=== PATIENT | male | born 1970 | race African-American/Black ===

== ENCOUNTER 2020-11-07 09:52 | Outpatient (CLI) | payer MEDICARE, SELFPAY ==
--- NOTE | ~2020-11-07 | XR_ITS ---
EXAMINATION: XR cervical spine 4-5V EXAM DATE: 11/07/2020 10:25 INDICATION: M54.2 - Cervicalgia, NKI . TECHNIQUE: Cervical spine frontal, lateral, lateral swimmers, and open-mouth odontoid projections. There is no prior study for comparison. FINDINGS: Mild loss of the C7-T1 disc height. The vertebral body and disc heights are otherwise well maintained. The vertebral bodies are aligned in the AP dimension. The odontoid process is intact. T he lateral masses of C1 line up with C2. Prevertebral soft tissue and pre-dens space are within marie l limits. Mild to moderate cervical arthropathy. Left subclavian/axillary stents. IMPRESSION: 1. Mild to moderate cervical arthropathy. Reviewed, dictated and finalized at location B.
--- NOTE | ~2020-11-07 | XR_ITS ---
XR chest 2V 11/07/2020 10:25 Indication: Chronic obstructive pulmonary disease. Procedure: PA and lateral views of the chest Comparison: No prior studies for comparison. Findings: Cardiomegaly. There is subtle right perihilar airspace disease. There are vascular stents i n the left subclavian and proximal humeral locations. No significant effusion. No pneumothorax. Impression: 1: Right perihilar airspace disease may represent asymmetric edema or pneumonia. 2: Cardiomegaly. Reviewed, dictated and finalized at location A. Impression: 1: Right perihilar airspace disease may represent asymmetric edema or pneumonia . 2: Cardiomegaly.
--- NOTE | ~2020-11-07 | XR_ITS ---
XR abdomen/kub 1V 11/07/2020 10:25 INDICATION: Hematuria TECHNIQUE: KUB COMPARISON: None FINDINGS: Bowel gas pattern is normal. Moderate colonic fecal loading. There is no evidence of free a ir, mass, organomegaly, ascites or obstruction. No abnormal calculi are seen. The bones appear inta ct. Moderate osteoarthritis of the hips. IMPRESSION: 1: No acute abdominal abnormality identified. Reviewed, dictated and finalized at location A.
== END 2020-11-07 09:53 | disposition home or self-care (01) ==
LOC: ANHIMG 10:04
PROVIDERS: PCP Internal Medicine; Visit Provider Internal Medicine
DX: R31.9 Hematuria, unspecified (principal); M54.2 Cervicalgia; J44.9 Chronic obstructive pulmonary disease, unspecified; I51.7 Cardiomegaly; R91.8 Other nonspecific abnormal finding of lung field
CPT/HCPCS: 71046; 72050; 74018

== ENCOUNTER 2020-11-23 07:58 | Outpatient (CLI) | payer MEDICARE, SELFPAY ==
--- NOTE | 2020-11-27 13:10 | P.PCNPFT_ITS ---
PFT Procedure Performed PFT Procedure Performed Spirometry with Pre/Post Bronchodilator Plethysmography (Lung Vol) Diffusing Cap (DLCO) Flow Vol Loop PFT Interpretation Lung volumes were measured with the body plethysmography method. The diminished across the board lung volumes are indicative of restrictive respiratory disease. Spirometry showed diminished expiratory flow rates and a diminished FEV1 to FVC ratio of 55%, indicative of obstructive airway disease. Following administration of a bronchodilator there was no significant increase in the expiratory flow rates. Lung diffusion capacity is severely reduced at 44% predicted. Impression: Combined restrictive respiratory and obstructive airway disease wit h no response to bronchodilators on this testing. Severely reduced lung diffusion capacity.
== END 2020-11-23 07:59 | disposition home or self-care (01) ==
PROVIDERS: PCP Internal Medicine; Visit Provider Internal Medicine
DX: J44.9 Chronic obstructive pulmonary disease, unspecified (principal); R94.2 Abnormal results of pulmonary function studies
CPT/HCPCS: 94060; 94726; 94729

== ENCOUNTER 2021-04-23 03:29 | Inpatient (IN) | payer MEDICARE, SELFPAY ==
[2021-04-23] VITALS (67 sets, daily range): BP systolic 111–229; BP diastolic 66–187; PULSE 87–165; RESP 13–45; TEMP 36.9–37.9; O2SAT 87–100; BMI 22.4
--- NOTE | 2021-04-23 | ECHO_ITS ---
Patient Info Name: Germán Mills Age: 50 years : 1970 Gender: Male Ht: 71 in Wt: 160 lbs BSA: 1.91 m2 HR: 138 bpm BP: 158 / 100 mmHg Heart Rhythm: Atrial Fibrillation Technical Quality: Fair Exam Date: 04/23/2021 4:43 PM Exam Location: [facility] Patient Status: Inpatient Admit Date: 04/23/2021 Staff Ordering Physician: Brea Bowden MD Job Developer: Hemalatha Winn RDCS Attending Provider: Michael Dailey MD Exam Type: CA echo doppler color flow Study Info Indications - cardiomegaly Complete two-dimensional, color flow and Doppler transthoracic echocardiogram is performed. Summary 1. Complete two-dimensional, color flow and Doppler transthoracic echocardiogram is performed. 2. Left ventricular chamber dimension is normal. 3. Left ventricular systolic function is normal, estimated at 65-70%. 4. There is severely increased left ventricular wall thickness. 5. There is no aortic valve stenosis. 6. There is trace mitral valve regurgitation. 7. There is mild tricuspid valve regurgitation. 8. Mild pulmonary hypertension, estimated pulmonary arterial systolic pressure is 40 mmHg. 9. There is large pericardial effusion without evidence of tamponade physiology. Left Ventricle Left ventricular chamber dimension is normal. Left ventricular systolic function is normal, estimated at 65-70%. There is severely increased left ventricular wall thickness. The left ventricular diastolic function is indeterminate. Right Ventricle Right ventricular chamber dimension is normal. Right ventricular systolic function is normal. Left Atria Left atrial chamber dimension is moderately enlarged. Right Atria Right atrial chamber dimension is moderately enlarged. Aortic Valve The aortic valve is probable trileaflet. There is mild aortic valve sclerosis. There is no aortic valve stenosis. There is trace aortic valve regurgitation. Pulmonic Valve The pulmonic valve is normal. There is mild pulmonic regurgitation. Mitral Valve The mitral valve has thickened leaflets. There is trace mitral valve regurgitation. There is moderate mitral valve calcification. The mitral valve annulus is mildly calcified. Tricuspid Valve The tricuspid valve leaflets are normal. There is mild tricuspid valve regurgitation. Mild pulmonary hypertension, estimated pulmonary arterial systolic pressure is 40 mmHg. Pericardium/Pleural The pericardium appears normal. There is large pericardial effusion without evidence of tamponade physiology. Inferior Vena Cava Dilated inferior vena cava with <50% collapse upon inspiration consistent with elevated right atrial pressure, 10 mmHg. Aorta The aortic root size at the sinus of Valsalva is normal. There is mild aortic atherosclerosis. Left Ventricular Outflow Tract Name Value Normal LVOT 2D LVOT Diameter 2.0 cm LVOT Doppler LVOT Peak Gradient 12 mmHg LVOT Mean Gradient 6 mmHg LVOT VTI 22 cm LVOT VTI/AV VTI Ratio 0.8
--- NOTE | ~2021-04-23 | NM_ITS ---
EXAMINATION: NM pulmonary perfusion DATE: 04/23/2021 07:58 INDICATION: Shortness of breath. TECHNIQUE: 5.5 mCi Tc-99m MAA was administered intravenously for perfusion images. Scintigraphic dionna ges of the chest were obtained. COMPARISON: Chest single view 04/23/2021 FINDINGS: Perfusion images show matched large defects at left lung base. There are matched small defects in rig ht lower lobe. IMPRESSION: 1. Nondiagnostic (intermediate probability for pulmonary embolism). Reviewed, dictated and finalized at location A. SM MOTOR SPECIALIST
--- NOTE | ~2021-04-23 | XR_ITS ---
EXAMINATION: XR chest 1V portable DATE: 04/29/2021 08:22 INDICATION: Coarse lung sounds. TECHNIQUE: A single frontal view of the chest was obtained. COMPARISON: Chest single view 04/23/2021 FINDINGS: There are small right and moderate-sized left pleural effusions. There are airspace opaciti es in the perihilar regions and at the lung bases. No pneumothorax. Cardiomegaly is noted. IMPRESSION: 1. Worsened small right and moderate-sized left pleural effusions. 2. Persistent airspace opacities in the perihilar regions and at the lung bases with worsening at the lung bases, consistent with atelectasis and pulmonary edema versus pneumonia. 3. Cardiomegaly. Reviewed, dictated and finalized at location A. IMPRESSION: 1. Worsened small right and moderate-sized left pleural effusions. 2. Persistent airspace opacities in the perihilar regions and at the lung bases with worsening at the lung bases, consistent with atelectasis and pulmonary ed mati versus pneumonia. 3. Cardiomegaly.
--- NOTE | ~2021-04-23 | XR_ITS ---
EXAMINATION: XR chest 1V portable DATE: 04/23/2021 23:31 INDICATION: Pain at site of thoracentesis. TECHNIQUE: frontal view of the chest was obtained. COMPARISON: Chest radiograph dated 05/03/2021 at 4:28 PM and 3:54 AM FINDINGS: Increasing opacity in the left mid to lower lung zone consistent with reaccumulation of a small left pleural effusion with associated left basilar atelectasis and/or pneumonia. Mild perihilar opacities at the right lung which could represent mild pulmonary edema. No pneumothorax or right-sided pleural effusion. Persistent prominent cardiomegaly. Vascular stents at the left axilla and proximal left upp er arm. IMPRESSION: 1. Increasing opacities in the left lower lung zone consistent with reaccumulation of a small left pl eural effusion and associated atelectasis and/or pneumonia. 2. Cardiomegaly with mild right perihilar opacities consistent with mild pulmonary edema. Reviewed, dictated and finalized at location A. ER MIXER IMPRESSION: 1. Increasing opacities in the left lower lung zone consistent with reaccumulat ion of a small left pleural effusion and associated atelectasis and/or pneumoni a. 2. Cardiomegaly with mild right perihilar opacities consistent with mild pulmon [place] edema.
--- NOTE | ~2021-04-23 | XR_ITS ---
EXAMINATION: XR chest 1V portable DATE: 04/23/2021 03:57 INDICATION: Chest pain. TECHNIQUE: A single frontal view of the chest was obtained. COMPARISON: Chest 2 views 11/07/2020 FINDINGS: There is a moderate-sized left pleural effusion. There are airspace opacities at left lung base. There are hazy airspace opacities in the rest of the lungs. No pneumothorax. There is severe en largement of the cardiac silhouette. A vascular stent overlies left shoulder. IMPRESSION: 1. Diffuse lung disease, consistent with pulmonary edema versus pneumonia. 2. Moderate-sized left pleural effusion. 3. Severe enlargement of the cardiac silhouette, which may be cardiomegaly and/or pericardial effusio n. Reviewed, dictated and finalized at location A. HUNTER IMPRESSION: 1. Diffuse lung disease, consistent with pulmonary edema versus pneumonia. 2. Moderate-sized left pleural effusion. 3. Severe enlargement of the cardiac silhouette, which may be cardiomegaly and/ or pericardial effusion.
--- NOTE | ~2021-04-23 | US_ITS ---
EXAMINATION: US thoracentesis DATE: 04/30/2021 14:35 INDICATION: Left pleural effusion TECHNIQUE: The procedure and its risks and benefits were discussed with the patient. Potential risks discussed included bleeding, infection, and pneumothorax. The patient understood the risks and agreed to proceed. The skin was prepped and draped in sterile fashion. 1% lidocaine was used for local anes thesia. Under ultrasound guidance, a 5 Fr catheter with trochar was advanced into the left pleural ef fusion. Fluid was aspirated. The catheter was removed, and a dressing was applied. There were no imme diate complications. FINDINGS: Ultrasound images demonstrate a small left pleural effusion and the catheter within the fluid. There is negligible residual left pleural effusion at the conclusion of the procedure. Incidentally noted i s a large complex pericardial effusion with low level internal echoes and irregular peripheral hypoec hoic material incomplete septations. The pericardial fluid collection measures up to 5 cm in thicknes s. This incidental finding was discussed with Dr. Mila Whyte at 2:45 PM. IMPRESSION: 1. Successful ultrasound-guided thoracentesis yielding 250 mL of clear yellowish fluid. 2. Large complex appearing pericardial effusion. Reviewed, dictated and finalized at location A. IMPRESSION: 1. Successful ultrasound-guided thoracentesis yielding 250 mL of clear yellowi sh fluid. 2. Large complex appearing pericardial effusion.
--- NOTE | ~2021-04-23 | US_ITS ---
EXAMINATION: US thoracentesis DATE: 04/23/2021 16:38 INDICATION: Left pleural effusion TECHNIQUE: The procedure and its risks and benefits were discussed with the patient. Potential risks discussed included bleeding, infection, and pneumothorax. The patient understood the risks and agreed to proceed. The skin was prepped and draped in sterile fashion. 1% lidocaine was used for local anes thesia. Under ultrasound guidance, a 5 Fr catheter with trochar was advanced into the small left pleu ral effusion. Fluid was aspirated. The catheter was removed, and a dressing was applied. There were n o immediate complications. FINDINGS: Ultrasound images demonstrate a small left pleural effusion and the catheter within the fluid. IMPRESSION: 1. Successful ultrasound-guided thoracentesis yielding 400 mL of clear yellow fluid. Reviewed, dictated and finalized at location A. E INSTALLER REPAIRER
--- NOTE | ~2021-04-23 | XR_ITS ---
EXAMINATION: XR_[id number]_CR DATE: 04/23/2021 16:33 INDICATION: Pleural effusion postthoracentesis TECHNIQUE: frontal view of the chest was obtained. COMPARISON: Chest radiograph dated 05/03/2021 at 3:54 AM FINDINGS: Near complete resolution of prior left pleural effusion. No pneumothorax or right-sided pleural effus ion. Bilateral mild perihilar opacities and additional opacities at the left lung base which could re present mild pulmonary edema, atelectasis or pneumonia. Cardiomegaly. Vascular stenting at the left a xilla and proximal left upper arm. IMPRESSION: 1. Near-complete resolution of a prior left pleural effusion postthoracentesis. 2. Opacities in the left lower lung zone and bilateral perihilar regions which could represent mild p ulmonary edema, pneumonia, atelectasis or some combination thereof. 3. Cardiomegaly. Reviewed, dictated and finalized at location A. RAM CLERK IMPRESSION: 1. Near-complete resolution of a prior left pleural effusion postthoracentesis. 2. Opacities in the left lower lung zone and bilateral perihilar regions which could represent mild pulmonary edema, pneumonia, atelectasis or some combinatio n thereof. 3. Cardiomegaly.
--- NOTE | ~2021-04-23 | XR_ITS ---
EXAMINATION: XR_CXR1VTHORA_CR DATE: 04/30/2021 14:31 INDICATION: Left pleural effusion status post thoracentesis. TECHNIQUE: A single frontal view of the chest was obtained. COMPARISON: Chest single view 04/29/2021, 11/07/2020 FINDINGS: There is a moderate-sized loculated left pleural effusion. There are airspace opacities in the mid and lower lung zones. No pneumothorax. Cardiomegaly is noted. There are vascular stents in le ft axilla and overlying left shoulder. IMPRESSION: 1. Moderate-sized loculated left pleural effusion. 2. Stable airspace opacities in the mid and lower lung zones, consistent with atelectasis versus pneu monia. 3. Cardiomegaly. Reviewed, dictated and finalized at location A. IMPRESSION: 1. Moderate-sized loculated left pleural effusion. 2. Stable airspace opacities in the mid and lower lung zones, consistent with a telectasis versus pneumonia. 3. Cardiomegaly.
--- NOTE | 2021-04-23 03:30 | ECG_ITS ---
Measurements Intervals [place] Rate: 155 P: [place]: 0 QRS: 26 QRSD: 89 T: 128 QT: 262 QTc: 421 Interpretive Statements ATRIAL FIBRILLATION WITH RAPID VENTRICULAR RESPONSE ST ELEVATION, PROBABLY EARLY REPOLARIZATION [ST ELEVATION WITH NORMALLY INFLECTED T WAVE] NONSPECIFIC ST & T-WAVE ABNORMALITY ABNORMAL ECG NO PREVIOUS ECG AVAILABLE FOR COMPARISON Electronically Signed On 04-23-2021 14:05:50 POTATO CHIP MAKER by Ulisses Allen M.D.
--- NOTE | 2021-04-23 03:39 | PC.NURSE ---
Patient states his dialysis is MWF and he has been going.
[2021-04-23 03:45] LABS: Basophils Percent Auto 0.2 % (0.2-1.2); Eosinophils Absolute Auto 0.2 K/mm3 (0-0.3); Eosinophils Percent Auto 1.7 % (0-4.4); Hematocrit 32.6 % (42.0-52.0); Hemoglobin 10.3 g/dL (14.0-18.0); Immature Granulocyte Absolute 0.09 K/mm3 (0.00-0.031); Immature Granulocyte Percent A 0.7 % (0-0.5); Lymphocytes Absolute Auto 0.66 K/mm3 (0.9-3.2); Mean Corpuscular HGB Conc 31.6 g/dl (32-36); Mean Corpuscular Hemoglobin 29.3 pg (26-34); Mean Corpuscular Volume 92.9 fl (80-100); Monocytes Absolute Auto 1.4 K/mm3 (0.1-0.6); Monocytes Percent Auto 10.3 % (2.6-8.5); Neutrophils Absolute Auto 10.9 K/mm3 (1.3-6.7); Neutrophils Percent Auto 82.1 % (45.5-73.1); Platelet Count Result 398 k/mm3 (150-375); Red Blood Count 3.51 M/mm3 (4.6-6.20); Red Cell Distribution Width 18.1 % (11.5-14.5); White Blood Count 13.2 K/mm3 (4.5-10.0)
[2021-04-23] MEDS: METOPROLOL TARTRATE INJ 5 MG/5 ML VIAL IV PUSH (03:45)
--- NOTE | 2021-04-23 03:47 | ED.CHESTPAIN ---
HPI - Chest Pain General Chief Complaint: Chest Pain Stated Complaint: Chest pain Time Seen by Provider: 04/23/21 03:35 Source: patient Mode of arrival: EMS Limitations: no limitations History of Present Illness HPI narrative: Patient is a 50-year-old male complaining of chest pain, midsternal, pressure, 8 out of 10, nonradiating accompanied by palpitations and shortness of breath started 3 days ago. Patient states that he has a history of end-stage renal disease on dialysis Wednesdays and Fridays and COPD. Patient denies any abdominal pain, nausea, vomiting, diaphoresis, fever or chills. Related Data Home Medications Medication Instructions Recorded Confirmed clonidine HCl 0.3 mg tablet 0.3 mg PO BID tablet 09/21/20 12/28/20 hydralazine 100 mg tablet 100 mg PO TID tablet 09/21/20 12/28/20 lisinopril 40 mg tablet 40 mg PO DAILY 09/21/20 12/28/20 minoxidil 2.5 mg tablet 2.5 mg PO TID tablet 09/21/20 12/28/20 Allergies Allergy/AdvReac Type Severity Reaction Status Date / Time Iodinated Contrast Media Allergy Unknown Verified 04/23/21 03:39 Review of Systems Review of Systems: All systems reviewed & are unremarkable except as noted in HPI and below Constitutional: Constitutional: Denies body ache(s), Denies chills, Denies excessive sweating, Denies fatigue, Denies fever(s), Denies headache(s), Denies lethargy, Denies malaise, Denies weakness and Denies weight loss Eyes: Eyes: Denies blurry vision, Denies change in vision and Denies loss of vision ENT: Denies dizziness, Denies ear discharge, Denies headache(s), Denies lip swelling, Denies epistaxis, Denies nasal congestion, Denies neck pain, Denies throat swelling and Denies tongue swelling Cardiovascular: Cardiovascular: Denies diaphoresis, Denies edema, Denies irregular heart rhythm and Denies lightheadedness Respiratory: Respiratory: Denies chest congestion, Denies cough and Denies hemoptysis Gastrointestinal: Gastrointestinal: Denies abdominal pain, Denies melena, Denies hematochezia, Denies diarrhea, Denies nausea, Denies vomiting and Denies hematemesis Musculoskeletal: Musculoskeletal: Denies abnormal gait, Denies deformity, Denies joint swelling, Denies limited range of motion, Denies neck pain and Denies numbness Neurologic: Denies Abnormal speech present, Denies abnormal gait, Denies confusion, Denies dizziness, Denies headache(s), Denies focal weakness, Denies loss of vision, Denies numbness, Denies Other visual disturbances, Denies Sensory deficit (Neuro) and Denies weakness Psychiatric: Psychiatric: Denies confusion, Denies depression, Denies auditory hallucinations, Denies homicidal ideation and Denies suicidal ideation Endocrine: Endocrine: Denies cold intolerance, Denies excessive sweating, Denies fatigue, Denies heat intolerance and Denies palpitations Hematologic/Lymphatic: Hematologic/Lymphatic: Denies easy bleeding and Denies easy bruising Allergic/Immunologic: Allergic/Immunologic: Denies lip swelling, Denies throat swelling and Denies tongue swelling PMFSH Past Medical History Medical History Chronic cough Difficulty sleeping High blood pressure Kidney disease Seizure Swollen feet Family History Family History Mother Hypertension Social History Social History Smoking packs per day: 0.5 Smoking cigarettes per day: 10.0 Years smoked: 30 Smoking pack-years: 15.00 Second hand tobacco smoke exposure: No Alcohol intake: never Substance use: never Substance use type: does not use Exam Const: General: cooperative, comfortable, well developed, alert and awake; No confusion Orientation/consciousness: oriented to person, oriented to place, oriented to time, patient oriented x3 and No confusion Limitations: no limitations Other: Moderate distre
[2021-04-23 03:54] LABS: Anisocytosis 1+ (NORMAL); Hypochromasia 1+ (NORMAL); Large Platelets Present; Stomatocytes 1+ (NORMAL); Target Cells 1+ (NORMAL)
[2021-04-23 03:56] LABS: INR 1.4; Prothrombin Time 16.5 Seconds (11.1-14.7)
--- NOTE | 2021-04-23 03:58 | PC.NURSE ---
WILBER per hold metoprolol at this time, but give po med.
[2021-04-23] MEDS: ACETAMINOPHEN 325 MG TABLET 650 MG PO (03:59)
--- NOTE | 2021-04-23 03:59 | ECG_ITS ---
Measurements Intervals [place] Rate: 106 P: 58 [place]: 152 QRS: 19 QRSD: 86 T: 107 QT: 329 QTc: 438 Interpretive Statements SINUS TACHYCARDIA LEFT ATRIAL ENLARGEMENT [-0.15mV P WAVE IN V1/V2] ST ELEVATION, PROBABLY EARLY REPOLARIZATION [ST ELEVATION WITH NORMALLY INFLECTED T WAVE] MODERATE T-WAVE ABNORMALITY, CONSIDER LATERAL ISCHEMIA [-0.1+ mV T WAVE IN I/aVL/V5/V6] ABNORMAL ECG COMPARED TO ECG 04/23/2021 03:32:20 SINUS TACHYCARDIA NOW PRESENT Electronically Signed On 04-23-2021 14:06:47 DRESS SHOE INSPECTOR by Ulisses Allen M.D.
[2021-04-23 04:02] LABS: Alanine Aminotransferase 13 U/L (4-50); Albumin Level 4.8 g/dL (3.5-5.1); Alkaline Phosphatase 239 U/L (38-126); Anion Gap 17 mmol/L (8-16); Aspartate Amino Transferase 49 U/L (17-59); Blood Urea Nitrogen 66 mg/dL (9-20); Calcium 8.6 mg/dL (8.4-10.2); Carbon Dioxide 28 mmol/L (22-30); Chloride 97 mmol/L (98-107); Estimated CRCL calculation 6 ml/min; Estimated Glomerular Filt Rate 5; Glucose 100 mg/dL (65-110); Partial Thromboplastin Time 28.1 SECONDS (22.3-36.8); Potassium 5.1 mmol/L (3.4-5.0); Sodium 142 mmol/L (137-145)
[2021-04-23 04:17] LABS: NT Pro B Type Natriuretic Pept > 35000 pg/mL (5-100); Troponin I 0.382 ng/mL (0.000-0.034)
[2021-04-23 04:29] LABS: Lactic Acid Reflex 1.3 mmol/L (0.7-2.1)
[2021-04-23] MEDS: MORPHINE SULFATE (*CRX) 2 MG/ML INJ IV PUSH ×3 (04:35→08:46)
[2021-04-23] MEDS: DEXAMETHASONE SOD PHOS INJ 4 MG/ML VIAL 10 MG IV PUSH (04:59)
[2021-04-23] MEDS: ALBUTEROL SULFATE NEB 2.5 MG/0.5 ML INH 5 MG INHALATION (05:04)
[2021-04-23] MEDS: IPRATROPIUM BR 0.02% INH SOLN 0.5 MG/2.5 ML VIAL INHALATION (05:04)
[2021-04-23] MEDS: HEPARIN SOD/D5W 100 UNITS/ML 25,000 UNITS/250 ML BAG 8 UNITS IV CONT (05:07)
--- NOTE | 2021-04-23 05:35 | PC.NURSE ---
Patients states his PCP is and his calender wind up helper is Dr. Hughes.
--- NOTE | 2021-04-23 05:52 | PC.NURSE ---
[facility] called to inform that they do not have the medication for the scan, but as soon as they do they will come get the patient to perform the scan.
[2021-04-23 06:02] LABS: SARS-CoV-2 RNA PCR Negative
--- NOTE | 2021-04-23 06:25 | PC.NURSE ---
Informed patient and family on patients room number. Patient still c/o pain, ERP notified.
[2021-04-23 08:00] LABS: Troponin I 0.403 ng/mL (0.000-0.034)
--- NOTE | 2021-04-23 08:20 | ADMGEN ---
This patient, Germán Mills, was admitted to Intensive Care Unit-6. Patient/family oriented to hospital policies and general routines including ID bracelet, bed and alarms, visiting hours, pain management, procedures, bathroom and other care routines, personal items, smoking policy, room service/diet, and visiting hours. Information on how to activate the Rapid Response Team has been discussed. Patient/Family are encouraged to report perceived risks to care and to ask questions if they do not understand what they are told or what they should do.
--- NOTE | 2021-04-23 08:24 | ECG_ITS ---
Measurements Intervals [place] Rate: 105 P: 35 ID: 143 QRS: 3 QRSD: 89 T: 122 QT: 330 QTc: 437 Interpretive Statements SINUS TACHYCARDIA WITH FREQUENT SUPRAVENTRICULAR PREMATURE COMPLEXES POSSIBLE LEFT ATRIAL ENLARGEMENT [-0.1mV P WAVE IN V1/V2] ST ELEVATION, PROBABLY EARLY REPOLARIZATION [ST ELEVATION WITH NORMALLY INFLECTED T WAVE] Nonspecific T-wave abnormality COMPARED TO ECG 04/23/2021 04:00:56 NO SIGNIFICANT CHANGES Electronically Signed On 04-23-2021 15:39:12 ESTIMATOR AND DRAFTER SUPERVISOR by Neil Koo M.D.
[2021-04-23] MEDS: hydrALAZINE HCL 50 MG TABLET 100 MG PO ×3 (09:27→21:14)
[2021-04-23] MEDS: cloNIDine HCL 0.1 MG TABLET 0.3 MG PO ×2 (09:27→17:26)
[2021-04-23] MEDS: minoxidiL 2.5 MG TABLET PO ×3 (09:28→17:26)
[2021-04-23 10:20] LABS: INR 1.4; Prothrombin Time 16.7 Seconds (11.1-14.7)
[2021-04-23 10:21] LABS: Partial Thromboplastin Time 43.1 SECONDS (22.3-36.8)
[2021-04-23] MEDS: HEPARIN SODIUM 5,000 UNITS/ML VIAL 4000 UNITS IV PUSH (10:25)
[2021-04-23 10:32] LABS: Hepatitis B Surface Antigen Negative (Negative)
[2021-04-23 10:34] LABS: Troponin I 0.359 ng/mL (0.000-0.034)
[2021-04-23 10:43] LABS: Magnesium 2.2 mg/dL (1.6-2.3)
[2021-04-23] MEDS: CYCLOBENZAPRINE HCL 10 MG TABLET PO ×2 (10:52→22:24)
[2021-04-23 10:58] LABS: Hepatitis B Surface Anti Res Positive
--- NOTE | 2021-04-23 11:13 | PM.IMHP ---
H&P: HPI History of Present Illness Date/Time: 04/23/21 11:13 ED-HPI narrative: Patient is a 50-year-old male complaining of chest pain, midsternal, pressure, 8 out of 10, nonradiating accompanied by palpitations and shortness of breath started 3 days ago. Patient states that he has a history of end-stage renal disease on dialysis Wednesdays and Fridays and COPD. Patient denies any abdominal pain, nausea, vomiting, diaphoresis, fever or chills. Patient is a 50-year-old male with history of end-stage renal disease on hemodialysis presented with complaint of chest pain across his chest last 2 3 days patient denies any injury to chest, the pain is reproducible upon by pressing on the chest, patient tropes are elevated most likely secondary to end-stage renal disease and demand ischemia due to pain unlikely ruptured plaque. there are no acute changes on EKG, patient was started on heparin, also upon arrival patient was in atrial fibrillation with RVR most likely new onset is patient does not have any rate limiting medication, patient was given metoprolol IV 5 mg that converted patient to sinus rhythm, chest x-ray showed cardiomegaly, patient stats he had cardiac ECHO 3 yrs ago at [facility], will do cardiac echo to recheck, he has had thoracentesis in the past, will order thoracentesis therapeutic, patient will be seen by pediatric medical assistant and further recommendation to follow, patient will have dialysis today, will continue to monitor. upon arrival patient had fever and elevated white count concerning for pneumonia started the patient on azithromycin and Rocephin, patient D-dimer is elevated V/Q scan intermediate probability for PE currently patient is on heparin, will do the lower extremity Doppler and further recommendation to follow. patient admitted as inpatient patient will send hospital for 2 midnights Chief Complaint: chest pain Review of Systems Review of Systems: All systems reviewed & are unremarkable except as noted in HPI and below PMFSH Past Medical History Medical History Chronic cough Difficulty sleeping High blood pressure Kidney disease Seizure Swollen feet Family History Family History Mother Hypertension Social History Social History Smoking packs per day: 1 Smoking cigarettes per day: 20.0 Years smoked: 20 Smoking pack-years: 20.00 Smoking status: Former smoker Second hand tobacco smoke exposure: No Alcohol intake: never Substance use: never Substance use type: does not use Spiritual care concerns: No Meds Home Medications and Allergies Home Medications Medication Instructions Recorded Confirmed Type clonidine HCl 0.3 mg tablet 0.3 mg PO BID tablet 09/21/20 04/23/21 History hydralazine 100 mg tablet 100 mg PO TID tablet 09/21/20 04/23/21 History minoxidil 2.5 mg tablet 2.5 mg PO TID tablet 09/21/20 04/23/21 History budesonide-formoterol HFA 160 2 puff INHALATION Q12H #10.2 g 03/26/21 04/23/21 Rx mcg-4.5 mcg/actuation aerosol inhaler Allergies Allergy/AdvReac Type Severity Reaction Status Date / Time Iodinated Contrast Media Allergy Unknown Verified 04/23/21 08:15 Vital Signs Vital Signs - 24 hr 04/23/21 03:30 04/23/21 03:39 04/23/21 03:41 Temperature 100.2 F H Pulse Rate 149 H 148 H Respiratory Rate 30 H 28 H Blood Pressure 164/66 H Pulse Oximetry 93 87 L 98 04/23/21 03:42 04/23/21 03:45 04/23/21 03:46 Temperature Pulse Rate 140 H 164 H 148 H Respiratory Rate 29 H 35 H 20 Blood Pressure 164/66 H Pulse Oximetry 94 95 96 04/23/21 03:49 04/23/21 03:50 04/23/21 04:01 Temperature Pulse Rate 134 H 137 H 109 H Respiratory Rate 32 H 32 H 29 H Blood Pressure 150/74 H Pulse Oximetry 94 93 93 04/23/21 04:02 04/23/21 0
--- NOTE | 2021-04-23 12:20 | ECG_ITS ---
Measurements Intervals [place] Rate: 141 P: [place]: 0 QRS: 21 QRSD: 94 T: 143 QT: 281 QTc: 432 Interpretive Statements ATRIAL FIBRILLATION WITH RAPID VENTRICULAR RESPONSE MODERATE T-WAVE ABNORMALITY, CONSIDER LATERAL ISCHEMIA [-0.1+ mV T WAVE IN I/aVL/V5/V6] COMPARED TO ECG 04/23/2021 08:39:11 AFIB REPLACES SINUS RHYTHM LATERAL PRECORDIAL T-WAVE ABNORMALITY IS EVIDENT Electronically Signed On 04-23-2021 15:48:47 SIXTH GRADE TEACHER by Neil Koo M.D.
--- NOTE | 2021-04-23 12:25 | PM.CNNEP ---
Assessment and Plan Assessment and plan (1) End stage renal disease: Code(s): N18.6 - End stage renal disease Status: Chronic Assessment and Plan: HD today and continue M/W/F dialysis schedule follow electrolytes, volume status, and clearance (2) Atrial fibrillation with RVR: Code(s): I48.91 - Unspecified atrial fibrillation Status: Acute Assessment and Plan: presumably a new finding continue rate control strategy as tolerated continue anticoagulation Cardiology following (3) Pleural effusion: Code(s): J90 - Pleural effusion, not elsewhere classified Status: Acute Assessment and Plan: as noted by CXR plan for left thoracentesis (4) CAP (community acquired pneumonia): Code(s): J18.9 - Pneumonia, unspecified organism Status: Acute Assessment and Plan: suspicion noted from admission imaging follow culture data on antibiotics (5) Hypertension: Qualifiers: Hypertension type: renovascular hypertension Qualified Code(s): I15.0 - Renovascular hypertension Code(s): I10 - Essential (primary) hypertension Status: Acute Assessment and Plan: suspect poorly controlled at baseline given that he is on multiple agents (clonidine, minoxidil, hydralazine...etc) follow trend of hemodynamics with home medications (6) Anemia: Code(s): D64.9 - Anemia, unspecified Status: Acute Assessment and Plan: due to ESRD follow trend of H/H Epogen with dialysis Will continue to follow. History of Present Illness Reason for Consult Consult date: 04/23/21 Reason for consult: end stage renal disease Chief Complaint Chief complaint: Atrial FIB with RVR/NSTEMI/ESRD on dialysis History of Present Illness Narrative: The patient is a 50-year-old male with a past medical history as outlined below who presented to [facility] Emergency room with complaints of chest pain. The patient states that his chest pain started approximately 3-4 days ago which apparently waxed and waned. The chest pain was localized to his missed midsternal area and described as a pressure sensation rated 8/10 at its worst. It was nonradiating but was accompanied by palpitations as well as shortness of breath. Given these constellation of symptoms, he presented to the ER for further evaluation Workup and evaluation emergency room demonstrated the patient to be hemodynamically stable and in no acute distress. His chest pain was actually reproducible upon palpation of his chest but further testing including EKG demonstrated no ischemic changes but did note atrial fibrillation with RVR which apparently is a new finding. His troponins were mildly elevated and his BNP was greater than 35,000 although both of these findings were thought to be more secondary to his known history of end-stage renal disease. He reports that his chest pain is worse with deep breathing, movement as well as coughing. Further testing also included chest x-ray that demonstrated a significant left pleural effusion. He was given IV metoprolol in the emergency room which converted his AFib to normal sinus rhythm and routine blood test demonstrated labs consistent with his known history of end-stage renal disease with a mildly elevated potassium. Given is new finding of AFib with RVR, he was started on systemic heparin and subsequent admitted to the hospital for further evaluation and therapy Since his admission, he was monitored overnight and is currently undergoing hemodialysis at the time of my visit (he was seen on hemodialysis at 12:15 p.m). He appears to be tolerating dialysis but he is having significant fluctuations in his blood pressure and appears that he has reverted back to atrial fibrillation with his heart rate running down the 130s to 150s. He has since been started on a diltiazem infusion for better rate control. Renal consultation was
[2021-04-23] MEDS: dilTIAZem HCl INJ 25 MG/5 ML VIAL 10 MG IV PUSH (12:35)
[2021-04-23] MEDS: dilTIAZem 100 MG/100 ML 100 MG/100 ML BAG IV CONT (12:36)
--- NOTE | 2021-04-23 14:15 | PM.CNCAR ---
Assessment and Plan Assessment and plan (1) Atrial fibrillation with RVR: Code(s): I48.91 - Unspecified atrial fibrillation Status: Acute Assessment and Plan: New diagnosis paroxysmal atrial fibrillation with rapid ventricular response. As BP permits uptitration of diltiazem infusion, additional IV metoprolol for heart rate control. Continue heparin infusion for anticoagulation. Amiodarone if hypotensive and AFib with RVR although would try to avoid as duration remains unknown and intracardiac thrombus status unclear. Will review 2D echocardiogram to assess LV function, valve pathology pulmonary pressures, chamber size with heart rate better controlled. Recommendation to follow. (2) Elevated troponin level not due myocardial infarction: Code(s): R77.8 - Other specified abnormalities of plasma proteins Status: Acute Assessment and Plan: Flat curve not secondary to acute coronary syndrome and/or plaque rupture. Secondary to atrial fibrillation with RVR, end-stage renal disease on hemodialysis and uncontrolled hypertension. (3) Atypical chest pain: Code(s): R07.89 - Other chest pain Status: Acute Assessment and Plan: As above. Atypical reproducible musculoskeletal chest pain worse with deep breathing, coughing and or movement. This may be exacerbated by pleural effusion. Agree with thoracentesis as tolerated. (4) Uncontrolled hypertension: Code(s): I10 - Essential (primary) hypertension Status: Acute Assessment and Plan: Continue antihypertensives. Monitor BP closely in addition to AV bridger blocking agents. (5) ESRD needing dialysis: Code(s): N18.6 - End stage renal disease; Z99.2 - Dependence on renal dialysis Status: Acute Assessment and Plan: Per nephrology. Undergoing hemodialysis currently. Volume management with hemodialysis. (6) Pleural effusion: Code(s): J90 - Pleural effusion, not elsewhere classified Status: Acute Assessment and Plan: Stay plan thoracentesis. Recommendation to follow. Per primary service. (7) COPD (chronic obstructive pulmonary disease): Qualifiers: COPD type: unspecified COPD Qualified Code(s): J44.9 - Chronic obstructive pulmonary disease, unspecified Code(s): J44.9 - Chronic obstructive pulmonary disease, unspecified Status: Acute Assessment and Plan: Per primary service. History of Present Illness History of Present Illness Consult date/time: DATE OF SERVICE: 04/23/21 14:15 Cardiology consultation at the request of Dr. Bowden for our opinion regarding atrial fibrillation with rapid ventricular response and chest pain. Requesting physician: Brea Bowden MD Consult reason: atrial fibrillation Reason For Visit: Atrial FIB with RVR/NSTEMI/ESRD on dialysis Narrative: Patient is a 50-year-old male with past medical history significant for end-stage renal disease on hemodialysis who presented to the emergency department with complaints of chest pain nonradiating as well as palpitations his shortness of breath which began several days prior to admission. Patient has a history of COPD, hypertension. Troponins are mildly elevated with a flat curve 0.382, 0.403, 0.359. BNP was greater than 35,000. Creatinine was 13 at presentation. Chest pain is sharp worse with pressing on the chest worse with deep breathing, movement and coughing. Patient was started on heparin drip as he was found to be in atrial fibrillation with rapid ventricular response with no prior known history. Patient was given IV metoprolol 5 mg which he converted to sinus rhythm shortly after admission. Patient was also noted to have significant pleural effusion. He is undergoing hemodialysis at this time and reverted back to atrial fibrillation with RVR with heart rate in the 130s to 150 beats per minute. He was started on diltiazem infusion. He is scheduled for thoracentesis of
[2021-04-23 16:30] LABS: pH Pleural Fluid 7.461 (7.210-7.500)
[2021-04-23 17:45] LABS: Albumin Level 4.5 g/dL (3.5-5.1); Amylase 66 U/L (30-110); Cholesterol 168 mg/dL (0-200); Glucose 114 mg/dL (65-110); INR 1.5; Lactate Dehydrogenase 648 U/L (313-618); Prothrombin Time 17.5 Seconds (11.1-14.7); Triglycerides 76 mg/dL (<150)
[2021-04-23 17:47] LABS: Partial Thromboplastin Time 47.8 SECONDS (22.3-36.8)
[2021-04-23 18:25] LABS: Appearance Pleural Fluid Cloudy (Clear); Color Pleural Fluid Yellow (Colorless); Pleural fluid source Pleural fluid
[2021-04-23 18:27] LABS: Lymphocytes Pleural Fluid 14 %; Macrophages Pleural Fluid 4 %; Mesothelial Cells Pleural Flui 3 %; Neutrophils Pleural Fluid 79 % (0-25)
[2021-04-23 18:35] LABS: Influenza Control Positive
[2021-04-23] MEDS: dilTIAZem 100 MG/100 ML 100 MG/100 ML BAG 15 MG IV CONT (19:30)
[2021-04-23 22:16] LABS: Partial Thromboplastin Time 57.3 SECONDS (22.3-36.8)
[2021-04-23] MEDS: HEPARIN SODIUM 5,000 UNITS/ML VIAL 2500 UNITS IV PUSH (22:20)
[2021-04-23] MEDS: HYDROmorphone HCL INJ (*CRX) 1 MG/ML SYR IV PUSH (23:43)
--- NOTE | 2021-04-23 23:45 | ECG_ITS ---
Measurements Intervals [place] Rate: 90 P: 26 AK: 148 QRS: 14 QRSD: 90 T: 85 QT: 348 QTc: 428 Interpretive Statements SINUS RHYTHM DIFFUSE ST ELEVATION CONSISTENT WITH INJURY, PERICARDITIS, OR EARLY REPOLARIZATION [ST ELEVATION W/O NORMALLY INFLECTED T WAVE] ABNORMAL ECG COMPARED TO ECG 04/23/2021 12:29:56 SINUS RHYTHM NOW PRESENT DIFFUSE ST ELEVATIONS MORE APPARENT Electronically Signed On 04-24-2021 14:53:59 INSTRUCTIONAL SUPPORT TECHNICIAN by Ulisses Allen M.D.
[2021-04-24] VITALS (20 sets, daily range): BP systolic 134–150; BP diastolic 72–89; PULSE 90–102; RESP 14–28; TEMP 37–37.6; O2SAT 92–98
[2021-04-24] MEDS: FLUTICASONE/SALMETEROL 115-21 MCG INHALER 1 PUFF 2 PUFF INHALATION ×3 (00:24→20:06)
[2021-04-24 05:16] LABS: Basophils Absolute Auto 0.1 K/mm3 (0.0-0.1); Basophils Percent Auto 0.2 % (0.2-1.2); Hematocrit 28.8 % (42.0-52.0); Hemoglobin 9.4 g/dL (14.0-18.0); Immature Granulocyte Absolute 0.23 K/mm3 (0.00-0.031); Immature Granulocyte Percent A 1.1 % (0-0.5); Lymphocytes Percent Auto 2.4 % (18.3-44.2); Mean Corpuscular HGB Conc 32.6 g/dl (32-36); Mean Corpuscular Hemoglobin 29.2 pg (26-34); Mean Corpuscular Volume 89.4 fl (80-100); Mean Platelet Volume 10.3 fl (7.4-10.4); Monocytes Percent Auto 9.6 % (2.6-8.5); Neutrophils Absolute Auto 18.1 K/mm3 (1.3-6.7); Neutrophils Percent Auto 86.7 % (45.5-73.1); Platelet Count Result 403 k/mm3 (150-375); Red Blood Count 3.22 M/mm3 (4.6-6.20); Red Cell Distribution Width 18.1 % (11.5-14.5); White Blood Count 20.9 K/mm3 (4.5-10.0)
[2021-04-24 05:25] LABS: Partial Thromboplastin Time 61.5 SECONDS (22.3-36.8)
[2021-04-24 05:31] LABS: Albumin Level 4.3 g/dL (3.5-5.1); Anion Gap 12 mmol/L (8-16); Blood Urea Nitrogen 42 mg/dL (9-20); Calcium 8.9 mg/dL (8.4-10.2); Carbon Dioxide 28 mmol/L (22-30); Chloride 99 mmol/L (98-107); Estimated CRCL calculation 9 ml/min; Estimated Glomerular Filt Rate 8; Glucose 124 mg/dL (65-110); Magnesium 2.1 mg/dL (1.6-2.3); Phosphorus 6.9 mg/dL (2.5-4.5); Potassium 5.8 mmol/L (3.4-5.0); Sodium 139 mmol/L (137-145)
[2021-04-24] MEDS: dilTIAZem 100 MG/100 ML 100 MG/100 ML BAG IV CONT (05:35)
[2021-04-24] MEDS: HEPARIN SOD/D5W 100 UNITS/ML 25,000 UNITS/250 ML BAG 12 UNITS IV CONT (05:36)
[2021-04-24] MEDS: HEPARIN SODIUM 5,000 UNITS/ML VIAL 2500 UNITS IV PUSH ×2 (05:44→20:25)
[2021-04-24 05:45] LABS: Anisocytosis 1+ (NORMAL); Hypochromasia 1+ (NORMAL); Ovalocytes 1+ (NORMAL)
[2021-04-24] MEDS: hydrALAZINE HCL 50 MG TABLET 100 MG PO ×3 (05:59→21:13)
[2021-04-24] MEDS: minoxidiL 2.5 MG TABLET PO ×3 (09:13→17:15)
[2021-04-24] MEDS: cloNIDine HCL 0.1 MG TABLET 0.3 MG PO ×2 (09:13→17:15)
--- NOTE | 2021-04-24 09:38 | P.PNNP_ITS ---
Progress Note: A&P Assessment and Plan (1) End stage renal disease: Code(s): N18.6 - End stage renal disease Status: Chronic Assessment and Plan: * HD tomorrow and continue M/W/ dialysis schedule * follow electrolytes, volume status, and clearance * unclear why K+ elevated since had HD yesterday - dose with lokelma x 1 today * push fluid removal given CXR findings as well as large pericardial effusion * if this is indeed uremic pericarditis, will need to consider daily dialysis (2) Atrial fibrillation with RVR: Code(s): I48.91 - Unspecified atrial fibrillation Status: Acute Assessment and Plan: * presumably a new finding * continue rate control strategy as tolerated * continue anticoagulation * Echo results noted * large pericardial effusion -- due to minoxidil use versus poor dialysis (uremic pericarditis)?? * Cardiology following (3) Pleural effusion: Code(s): J90 - Pleural effusion, not elsewhere classified Status: Acute Assessment and Plan: * as noted by CXR * s/p left thoracentesis (on 04/23/21) * follow-up on pleural fluid studies/cultures (4) Hypertension: Qualifiers: Hypertension type: renovascular hypertension Qualified Code(s): I15.0 - Renovascular hypertension Code(s): I10 - Essential (primary) hypertension Status: Acute Assessment and Plan: * suspect poorly controlled at baseline given that he is on multiple agents (cl onidine, minoxidil, hydralazine...etc) * follow trend of hemodynamics with home medications * rate control medications for Afib may help this issue as well (5) Anemia: Code(s): D64.9 - Anemia, unspecified Status: Acute Assessment and Plan: * due to ESRD * follow trend of H/H * Epogen with dialysis Will continue to follow. Subjective Date/time seen: 04/24/21 09:38 Tolerated dialysis yesterday although reverted back to Afib with RVR during treatment requiring initiation of diltiazem gtt; s/p ultrasound guided thoracentesis yesterday as well;overall, states he is feeling better today; no apparent distress voiced; no issues/events overnight or earlier this AM. Exam Narrative: General: WD/WN AA male in NAD Heart: normal S1 and S2; no rub Lungs: decreased breath sound bilaterally Abdomen: soft, nontender, nondistended, positive bowel sounds Extremities: no cyanosis or clubbing; no edema Skin: warm and dry Objective Data Vital Signs Vital Signs: Vital Signs Temp Pulse Resp BP Pulse Ox 04/24/21 09:15 98 20 144/83 H 94 04/24/21 08:42 95 25 H 04/24/21 08:41 96 25 H 04/24/21 08:00 94 98 04/24/21 06:00 90 04/24/21 05:35 92 142/76 H 04/24/21 04:00 37.0 C 92 14 147/85 H 97 04/24/21 02:00 92 04/24/21 00:24 93 134/72 04/24/21 00:00 37.3 C 93 18 134/72 96 04/23/21 22:21 87 137/83 04/23/21 22:00 92 04/23/21 20:02 98 16 95 04/23/21 20:00 37.2 C 105 H 26 H 140/76 96 04/23/21 19:30 105 H 124/78 04/23/21 18:00 120 H 04/23/21 17:20 121 H 23 H 151/80 H 95 04/23/21 16:37 133 H 25 H 172/107 H 94 04/23/21 16:36 139 H 28 H 229/187 H 92 04/23/21 16:00 142 H 30 H 146/86 H 92 04/23/21 15:53 164/89 H
--- NOTE | 2021-04-24 09:38 | PM.PNNEP ---
Progress Note: A&P Assessment and Plan (1) End stage renal disease: Code(s): N18.6 - End stage renal disease Status: Chronic Assessment and Plan: HD tomorrow and continue M/W/ dialysis schedule follow electrolytes, volume status, and clearance unclear why K+ elevated since had HD yesterday - dose with lokelma x 1 today push fluid removal given CXR findings as well as large pericardial effusion if this is indeed uremic pericarditis, will need to consider daily dialysis (2) Atrial fibrillation with RVR: Code(s): I48.91 - Unspecified atrial fibrillation Status: Acute Assessment and Plan: presumably a new finding continue rate control strategy as tolerated continue anticoagulation Echo results noted large pericardial effusion -- due to minoxidil use versus poor dialysis (uremic pericarditis)?? Cardiology following (3) Pleural effusion: Code(s): J90 - Pleural effusion, not elsewhere classified Status: Acute Assessment and Plan: as noted by CXR s/p left thoracentesis (on 04/23/21) follow-up on pleural fluid studies/cultures (4) Hypertension: Qualifiers: Hypertension type: renovascular hypertension Qualified Code(s): I15.0 - Renovascular hypertension Code(s): I10 - Essential (primary) hypertension Status: Acute Assessment and Plan: suspect poorly controlled at baseline given that he is on multiple agents (clonidine, minoxidil, hydralazine...etc) follow trend of hemodynamics with home medications rate control medications for Afib may help this issue as well (5) Anemia: Code(s): D64.9 - Anemia, unspecified Status: Acute Assessment and Plan: due to ESRD follow trend of H/H Epogen with dialysis Will continue to follow. Subjective Date/time seen: 04/24/21 09:38 Tolerated dialysis yesterday although reverted back to Afib with RVR during treatment requiring initiation of diltiazem gtt; s/p ultrasound guided thoracentesis yesterday as well;overall, states he is feeling better today; no apparent distress voiced; no issues/events overnight or earlier this AM. Exam Narrative: General: WD/WN AA male in NAD Heart: normal S1 and S2; no rub Lungs: decreased breath sound bilaterally Abdomen: soft, nontender, nondistended, positive bowel sounds Extremities: no cyanosis or clubbing; no edema Skin: warm and dry Objective Data Vital Signs Vital Signs: Vital Signs Temp Pulse Resp BP Pulse Ox 04/24/21 09:15 98 20 144/83 H 94 04/24/21 08:42 95 25 H 04/24/21 08:41 96 25 H 04/24/21 08:00 94 98 04/24/21 06:00 90 04/24/21 05:35 92 142/76 H 04/24/21 04:00 37.0 C 92 14 147/85 H 97 04/24/21 02:00 92 04/24/21 00:24 93 134/72 04/24/21 00:00 37.3 C 93 18 134/72 96 04/23/21 22:21 87 137/83 04/23/21 22:00 92 04/23/21 20:02 98 16 95 04/23/21 20:00 37.2 C 105 H 26 H 140/76 96 04/23/21 19:30 105 H 124/78 04/23/21 18:00 120 H 04/23/21 17:20 121 H 23 H 151/80 H 95 04/23/21 16:37 133 H 25 H 172/107 H 94 04/23/21 16:36 139 H 28 H 229/187 H 92 04/23/21 16:00 142 H 30 H 146/86 H 92 04/23/21 15:53 164/89 H 04/23/21 15:52 37.4 C 142 H 30 H 164/89 H 96 04/23/21 15:27 37.8 C H 133 H 25 H 184/101 H 95 04/23/21 15:11 165 H 182/99 H 04/23/21 15:00 153 H 182/84 H 04/23/21 14:45 135 H 174/125 H 04/23/21 14:30 132 H 184/157 H 04/23/21 14:15 136 H 04/23/21 14:00 127 H 193/163 H 04/23/21 13:45 143 H 171/142 H 04/23/21 13:34 144 H 04/23/21 13:30 153 H 161/97 H 04/23/21 13:15 141 H 111/83 04/23/21 13:00 141 H 122/98 H 04/23/21 12:45 128 H 132/97 H 04/23/21 12:36 150 H 182/92 H 04/23/21 12:30 155 H 182/92 H 04/23/21 12:29 141 H 04/23/21 12:15 153 H 168/143 H 04/23/21 12:00 97 19 168/
--- NOTE | 2021-04-24 09:48 | ECG_ITS ---
Measurements Intervals [place] Rate: 97 P: 21 MA: 151 QRS: 6 QRSD: 101 T: 80 QT: 344 QTc: 438 Interpretive Statements SINUS RHYTHM LEFT ATRIAL ENLARGEMENT ST ELEVATION CONSISTENT WITH INJURY, PERICARDITIS, OR EARLY REPOLARIZATION NO SIGNIFICANT CHANGE COMPARED TO PREVIOUS EKG Electronically Signed On 04-24-2021 11:28:57 AFTER SCHOOL TEACHER by Feroz Burnett M.D.
--- NOTE | 2021-04-24 10:10 | PM.PNCARD ---
Progress Note: A&P Assessment and Plan (1) Acute pericarditis: Code(s): I30.9 - Acute pericarditis, unspecified Status: Acute Assessment and Plan: EKG abnormality more prominent suggestive of pericarditis with diffuse ST elevations as well as [place] depression in AVR. Echocardiogram reveals preserved LV systolic function normal EF, severe concentric LVH with large circumferential pericardial effusion without tamponade physiology. Chest pain symptoms are much improved overall, he is in sinus rhythm, hemodynamically stable which would clinically would be contrary to concern for acute STEMI pathophysiology. Will repeat troponin. Repeat EKG obtained this morning also similar to EKG yesterday. Chest discomfort remains highly atypical, worse with certain movement, position deep breathing but again much improved overall post thoracentesis. Difficult to find precise dosing guidelines for colchicine in treatment of acute pericarditis with end-stage renal disease on hemodialysis. Discussion with pharmacist with some mention of summary with recommendations for 0.5 mg every 2-3 days with duration no longer than 3 months. As we do not have dosing of 0.5 mg closest approximation would be 0.6 mg every 3 days. We discussed 0.3 mg every 2 days but concern drug level may not achieve therapeutic status and would be quite speculative. Pharmacy thought 0.6 mg every 3 days was a reasonable approximation. Also discussed with my colleagues who agreed with this assessment. Discussed the above with the patient. He verbalized understanding and agreed with plan of care. (2) Atrial fibrillation with RVR: Code(s): I48.91 - Unspecified atrial fibrillation Status: Acute Assessment and Plan: New diagnosis paroxysmal atrial fibrillation with rapid ventricular response currently in sinus rhythm. Patient transiently had atrial flutter prior to converting to sinus rhythm as well. Transition off IV diltiazem to oral regimen. (3) Pericardial effusion: Code(s): I31.3 - Pericardial effusion (noninflammatory) Status: Acute Assessment and Plan: Large pericardial effusion circumferential chronic without tamponade physiology. Precise etiology unclear possibly related to uremia and in light of changes concerning for pericarditis uremic pericarditis although patient is on hemodialysis. (4) Elevated troponin level not due myocardial infarction: Code(s): R77.8 - Other specified abnormalities of plasma proteins Status: Acute Assessment and Plan: Flat curve not secondary to acute coronary syndrome and/or plaque rupture. Secondary to atrial fibrillation with RVR, end-stage renal disease on hemodialysis and uncontrolled hypertension. Possibly related to myopericarditis as well given EKG changes, pericardial effusion. (5) Atypical chest pain: Code(s): R07.89 - Other chest pain Status: Acute Assessment and Plan: As above. Atypical reproducible musculoskeletal chest pain worse with deep breathing, coughing and or movement much improved overall clinically, symptoms now mild improved with thoracentesis as well. (6) Uncontrolled hypertension: Code(s): I10 - Essential (primary) hypertension Status: Acute Assessment and Plan: Continue antihypertensives. Monitor BP closely in addition to AV bridger blocking agents. Better controlled overall. (7) ESRD needing dialysis: Code(s): N18.6 - End stage renal disease; Z99.2 - Dependence on renal dialysis Status: Acute Assessment and Plan: Per nephrology. Undergoing hemodialysis currently. Volume management with hemodialysis. (8) Pleural effusion: Code(s): J90 - Pleural effusion, not elsewhere classified Status: Acute Assessment and Plan: Status post thoracentesis 400 mg. (9) COPD (chronic obstructive pulmonary disease): Qualifiers: COPD type: unspecified COPD Qualified Code(s):
[2021-04-24] MEDS: SODIUM ZIRCONIUM CYCLOSILICATE 10 GM POWD.PACK PO (11:01)
[2021-04-24] MEDS: COLCHICINE 0.6 MG TABLET PO (12:31)
[2021-04-24 12:36] LABS: Partial Thromboplastin Time 50.5 SECONDS (22.3-36.8)
[2021-04-24 12:53] LABS: Troponin I 0.199 ng/mL (0.000-0.034)
[2021-04-24] MEDS: HEPARIN SODIUM 5,000 UNITS/ML VIAL 4000 UNITS IV PUSH (13:04)
[2021-04-24] MEDS: METOPROLOL TARTRATE 25 MG TABLET PO ×2 (13:43→21:13)
[2021-04-24] MEDS: CYCLOBENZAPRINE HCL 10 MG TABLET PO (15:58)
--- NOTE | 2021-04-24 16:25 | PM.IMPN ---
Progress Note: A&P Assessment and Plan (1) Acute pericarditis: Code(s): I30.9 - Acute pericarditis, unspecified Status: Acute (2) Pericardial effusion: Code(s): I31.3 - Pericardial effusion (noninflammatory) Status: Acute (3) Anemia: Code(s): D64.9 - Anemia, unspecified Status: Acute (4) Atrial fibrillation with RVR: Code(s): I48.91 - Unspecified atrial fibrillation Status: Acute (5) Elevated troponin level not due myocardial infarction: Code(s): R77.8 - Other specified abnormalities of plasma proteins Status: Acute (6) Atypical chest pain: Code(s): R07.89 - Other chest pain Status: Acute (7) Uncontrolled hypertension: Code(s): I10 - Essential (primary) hypertension Status: Acute (8) ESRD (end stage renal disease): Code(s): N18.6 - End stage renal disease Status: Acute (9) Seizures: Code(s): R56.9 - Unspecified convulsions Status: Acute (10) Tobacco abuse: Code(s): Z72.0 - Tobacco use Status: Acute (11) COPD (chronic obstructive pulmonary disease): Qualifiers: COPD type: unspecified COPD Qualified Code(s): J44.9 - Chronic obstructive pulmonary disease, unspecified Code(s): J44.9 - Chronic obstructive pulmonary disease, unspecified Status: Acute (12) Hypertension: Qualifiers: Hypertension type: renovascular hypertension Qualified Code(s): I15.0 - Renovascular hypertension Code(s): I10 - Essential (primary) hypertension Status: Acute Assessment and Plan: Patient is a 50-year-old male with history of end-stage renal disease on hemodialysis presented with complaint of chest pain across his chest last 2 3 days patient denies any injury to chest, the pain is reproducible upon by pressing on the chest, patient tropes are elevated most likely secondary to end-stage renal disease and demand ischemia due to pain unlikely ruptured plaque. there are no acute changes on EKG, patient was started on heparin, also upon arrival patient was in atrial fibrillation with RVR most likely new onset is patient does not have any rate limiting medication, patient was given metoprolol IV 5 mg that converted patient to sinus rhythm, chest x-ray showed cardiomegaly, patient stats he had cardiac ECHO 3 yrs ago at [facility], will do cardiac echo to recheck, he has had thoracentesis in the past, will order thoracentesis therapeutic, patient will be seen by surgery specialist and further recommendation to follow, patient will have dialysis today, will continue to monitor. upon arrival patient had fever and elevated white count concerning for pneumonia started the patient on azithromycin and Rocephin, patient D-dimer is elevated V/Q scan intermediate probability for PE currently patient is on heparin, will do the lower extremity Doppler and further recommendation to follow. 04/24/21 remains on heparin gtt x probable PE and afib pericarditis on colchicine pericardial effusion stable without tamponade HD per nephro BP not at goal meds have been adjusted today by cardiology acute pain lidocaine patch for low back, morphine iv x breakthrough and Percocet PRN added to MAR elevated BP likely multifactorial rebound from clonidine and 2/2 to pain cont current care Subjective Date/time seen: 04/24/21 16:25 complains of pain ant and post thorax w movement and inspiration and low back pain Exam Narrative: GEN: AAOX3 cooperative in distress 2/2 pain HEENT: eyes are clear and nonicteric EOMI CHEST: chest pain is reproducible along the chest by palpation and back w palpation LUNGS: bilateral poor air entry with rales HEART: RR S1S2 Lower extremities: no edema SKIN: nonjaundiced Neuro: CN intact no gross motor deficits Objective Data Vital Signs Vital Signs: Vital Signs - 24 hr 04/23/21 16:36 04/23/21 16:37 04/23/21 17:20 Temperature
[2021-04-24] MEDS: oxyCODONE/ACETAMINOPHEN (*CRX) 5-325 MG TABLET 1 TABLET PO (17:49)
[2021-04-24] MEDS: LIDOCAINE 5% PATCH 1 PATCH TRANSDERM (18:59)
[2021-04-24 19:53] LABS: Partial Thromboplastin Time 60.4 SECONDS (22.3-36.8)
[2021-04-24] MEDS: MORPHINE SULFATE (*CRX) 2 MG/ML INJ IV PUSH (20:30)
[2021-04-24] MEDS: HEPARIN SOD/D5W 100 UNITS/ML 25,000 UNITS/250 ML BAG 17 UNITS IV CONT (22:57)
[2021-04-25] VITALS (34 sets, daily range): BP systolic 113–166; BP diastolic 58–97; PULSE 56–155; RESP 13–24; TEMP 36.8–37.4; O2SAT 93–99
[2021-04-25 03:13] LABS: Hematocrit 26.8 % (42.0-52.0); Hemoglobin 8.5 g/dL (14.0-18.0); Mean Corpuscular HGB Conc 31.7 g/dl (32-36); Mean Corpuscular Hemoglobin 29.1 pg (26-34); Mean Corpuscular Volume 91.8 fl (80-100); Mean Platelet Volume 10.6 fl (7.4-10.4); Platelet Count Result 369 k/mm3 (150-375); Red Blood Count 2.92 M/mm3 (4.6-6.20); Red Cell Distribution Width 18.2 % (11.5-14.5); White Blood Count 17.6 K/mm3 (4.5-10.0)
[2021-04-25 03:14] LABS: Albumin Level 4.2 g/dL (3.5-5.1); Anion Gap 13 mmol/L (8-16); Blood Urea Nitrogen 65 mg/dL (9-20); Calcium 8.4 mg/dL (8.4-10.2); Carbon Dioxide 28 mmol/L (22-30); Chloride 99 mmol/L (98-107); Estimated CRCL calculation 8 ml/min; Estimated Glomerular Filt Rate 6; Glucose 98 mg/dL (65-110); Phosphorus 8.8 mg/dL (2.5-4.5); Potassium 5.7 mmol/L (3.4-5.0); Sodium 140 mmol/L (137-145)
[2021-04-25 03:20] LABS: Partial Thromboplastin Time 74.1 SECONDS (22.3-36.8)
[2021-04-25] MEDS: METOPROLOL TARTRATE 25 MG TABLET PO ×3 (06:36→22:20)
[2021-04-25] MEDS: hydrALAZINE HCL 50 MG TABLET 100 MG PO ×2 (06:36→13:02)
[2021-04-25] MEDS: oxyCODONE/ACETAMINOPHEN (*CRX) 5-325 MG TABLET 1 TABLET PO ×2 (06:42→21:07)
[2021-04-25] MEDS: minoxidiL 2.5 MG TABLET PO ×3 (07:59→18:22)
[2021-04-25] MEDS: cloNIDine HCL 0.1 MG TABLET 0.3 MG PO ×2 (07:59→18:22)
[2021-04-25] MEDS: LIDOCAINE 5% PATCH 1 PATCH TRANSDERM (08:03)
[2021-04-25] MEDS: FLUTICASONE/SALMETEROL 115-21 MCG INHALER 1 PUFF 2 PUFF INHALATION ×2 (08:19→20:15)
[2021-04-25 08:54] LABS: Partial Thromboplastin Time 68.3 SECONDS (22.3-36.8)
[2021-04-25] MEDS: HEPARIN SODIUM 5,000 UNITS/ML VIAL 2500 UNITS IV PUSH ×3 (09:03→21:08)
--- NOTE | 2021-04-25 10:00 | PM.IMPN ---
Progress Note: A&P Assessment and Plan (1) Acute pericarditis: Code(s): I30.9 - Acute pericarditis, unspecified Status: Acute (2) Pericardial effusion: Code(s): I31.3 - Pericardial effusion (noninflammatory) Status: Acute (3) Anemia: Code(s): D64.9 - Anemia, unspecified Status: Acute (4) Atrial fibrillation with RVR: Code(s): I48.91 - Unspecified atrial fibrillation Status: Acute (5) Elevated troponin level not due myocardial infarction: Code(s): R77.8 - Other specified abnormalities of plasma proteins Status: Acute (6) Atypical chest pain: Code(s): R07.89 - Other chest pain Status: Acute (7) Uncontrolled hypertension: Code(s): I10 - Essential (primary) hypertension Status: Acute (8) ESRD (end stage renal disease): Code(s): N18.6 - End stage renal disease Status: Acute (9) Seizures: Code(s): R56.9 - Unspecified convulsions Status: Acute (10) Tobacco abuse: Code(s): Z72.0 - Tobacco use Status: Acute (11) COPD (chronic obstructive pulmonary disease): Qualifiers: COPD type: unspecified COPD Qualified Code(s): J44.9 - Chronic obstructive pulmonary disease, unspecified Code(s): J44.9 - Chronic obstructive pulmonary disease, unspecified Status: Acute (12) Hypertension: Qualifiers: Hypertension type: renovascular hypertension Qualified Code(s): I15.0 - Renovascular hypertension Code(s): I10 - Essential (primary) hypertension Status: Acute Assessment and Plan: Patient is a 50-year-old male with history of end-stage renal disease on hemodialysis presented with complaint of chest pain across his chest last 2 3 days patient denies any injury to chest, the pain is reproducible upon by pressing on the chest, patient tropes are elevated most likely secondary to end-stage renal disease and demand ischemia due to pain unlikely ruptured plaque. there are no acute changes on EKG, patient was started on heparin, also upon arrival patient was in atrial fibrillation with RVR most likely new onset is patient does not have any rate limiting medication, patient was given metoprolol IV 5 mg that converted patient to sinus rhythm, chest x-ray showed cardiomegaly, patient stats he had cardiac ECHO 3 yrs ago at [facility], will do cardiac echo to recheck, he has had thoracentesis in the past, will order thoracentesis therapeutic, patient will be seen by energy engineer and further recommendation to follow, patient will have dialysis today, will continue to monitor. upon arrival patient had fever and elevated white count concerning for pneumonia started the patient on azithromycin and Rocephin, patient D-dimer is elevated V/Q scan intermediate probability for PE currently patient is on heparin, will do the lower extremity Doppler and further recommendation to follow. 04/24/21 remains on heparin gtt x probable PE and afib pericarditis on colchicine pericardial effusion stable without tamponade HD per nephro BP not at goal meds have been adjusted today by cardiology acute pain lidocaine patch for low back, morphine iv x breakthrough and Percocet PRN added to MAR elevated BP likely multifactorial rebound from clonidine and 2/2 to pain cont current care 04/25/21 BP near goal HD MWF pain improved remains on heparin gtt -> warfarin soon? Subjective Date/time seen: 04/25/21 10:00 Patient doing okay reports he continues to have pain but it is improved with medical therapy. is bedside. Patient has given permission for us to discuss all of his healthcare information with her. Exam Narrative: GEN: AAOX3 cooperative in NAD HEENT: eyes are clear and nonicteric EOMI CHEST: lidocaine patches present HEART: RRR S1S2 Lower extremities: no edema SKIN: nonjaundiced Neuro: CN intact no gross motor deficits Objective Data Vital Sign
[2021-04-25] MEDS: HEPARIN SOD/D5W 100 UNITS/ML 25,000 UNITS/250 ML BAG 18 UNITS IV CONT (13:00)
[2021-04-25 14:42] LABS: Partial Thromboplastin Time 59.6 SECONDS (22.3-36.8)
--- NOTE | 2021-04-25 16:00 | P.PNNP_ITS ---
Progress Note: A&P Assessment and Plan (1) End stage renal disease: Code(s): N18.6 - End stage renal disease Status: Chronic Assessment and Plan: * HD today and plan daily dialysis for the next few days * follow electrolytes, volume status, and clearance * push fluid removal given CXR findings as well as large pericardial effusion with concern for uremic pericardiitis (2) Atrial fibrillation with RVR: Code(s): I48.91 - Unspecified atrial fibrillation Status: Acute Assessment and Plan: * presumably a new finding * continue rate control strategy as tolerated * continue anticoagulation * Echo results noted * large pericardial effusion -- due to minoxidil use versus poor dialysis (uremic pericarditis)?? * Cardiology following (3) Acute pericarditis: Code(s): I30.9 - Acute pericarditis, unspecified Status: Acute Assessment and Plan: * suspected given evidence to date (Echo results, EKG findings...etc) * colchicine per Cardiology * plan daily hemodialysis for the next few days (4) Pleural effusion: Code(s): J90 - Pleural effusion, not elsewhere classified Status: Acute Assessment and Plan: * as noted by CXR * s/p left thoracentesis (on 04/23/21) * follow-up on pleural fluid studies/cultures (5) Hypertension: Qualifiers: Hypertension type: renovascular hypertension Qualified Code(s): I15.0 - Renovascular hypertension Code(s): I10 - Essential (primary) hypertension Status: Acute Assessment and Plan: * suspect poorly controlled at baseline given that he is on multiple agents (clonidine, minoxidil, hydralazine...etc) * follow trend of hemodynamics with home medications * rate control medications for Afib may help this issue as well (6) Anemia: Code(s): D64.9 - Anemia, unspecified Status: Acute Assessment and Plan: * due to ESRD * per outpatient HD unit, poor responder to Epogen therapy * follow trend of H/H * continue Epogen with dialysis Will continue to follow. Subjective Date/time seen: 04/25/21 16:00 Tolerating hemodialysis treatment at the time of my visit (seen on HD at 3:45PM); no apparent distress voiced; no other acute issues/problems to report; no events overnight or earlier this AM. Exam Narrative: General: WD/WN AA male in NAD Heart: normal S1 and S2; no rub Lungs: decreased breath sound bilaterally Abdomen: soft, nontender, nondistended, positive bowel sounds Extremities: no cyanosis or clubbing; no edema Skin: warm and dry Objective Data Vital Signs Vital Signs: Vital Signs Temp Pulse Resp BP Pulse Ox 04/25/21 15:15 93 154/85 H 04/25/21 15:04 94 158/88 H 04/25/21 14:48 37.2 C 94 18 153/85 H 04/25/21 14:00 96 04/25/21 13:02 99 04/25/21 12:00 95 20 138/80 99 04/25/21 10:00 94 04/25/21 08:20 95 22 H 04/25/21 08:19 97 24 H 04/25/21 08:00 36.9 C 94 23 H 139/81 99 04/25/21 06:00 95 04/25/21 04:00 37.0 C 95 17 132/81 99 04/25/21 02:00 85 04/25/21 00:00 36.8 C 95 13 134/76 95 04/24/21 22:00 97 04/24/21 20:05 93 04/24/21 20:00 37.1 C 98 22 H 150/89 H 93 04/24/21 17:51 98 Intake/Output In
--- NOTE | 2021-04-25 16:00 | PM.PNNEP ---
Progress Note: A&P Assessment and Plan (1) End stage renal disease: Code(s): N18.6 - End stage renal disease Status: Chronic Assessment and Plan: HD today and plan daily dialysis for the next few days follow electrolytes, volume status, and clearance push fluid removal given CXR findings as well as large pericardial effusion with concern for uremic pericardiitis (2) Atrial fibrillation with RVR: Code(s): I48.91 - Unspecified atrial fibrillation Status: Acute Assessment and Plan: presumably a new finding continue rate control strategy as tolerated continue anticoagulation Echo results noted large pericardial effusion -- due to minoxidil use versus poor dialysis (uremic pericarditis)?? Cardiology following (3) Acute pericarditis: Code(s): I30.9 - Acute pericarditis, unspecified Status: Acute Assessment and Plan: suspected given evidence to date (Echo results, EKG findings...etc) colchicine per Cardiology plan daily hemodialysis for the next few days (4) Pleural effusion: Code(s): J90 - Pleural effusion, not elsewhere classified Status: Acute Assessment and Plan: as noted by CXR s/p left thoracentesis (on 04/23/21) follow-up on pleural fluid studies/cultures (5) Hypertension: Qualifiers: Hypertension type: renovascular hypertension Qualified Code(s): I15.0 - Renovascular hypertension Code(s): I10 - Essential (primary) hypertension Status: Acute Assessment and Plan: suspect poorly controlled at baseline given that he is on multiple agents (clonidine, minoxidil, hydralazine...etc) follow trend of hemodynamics with home medications rate control medications for Afib may help this issue as well (6) Anemia: Code(s): D64.9 - Anemia, unspecified Status: Acute Assessment and Plan: due to ESRD per outpatient HD unit, poor responder to Epogen therapy follow trend of H/H continue Epogen with dialysis Will continue to follow. Subjective Date/time seen: 04/25/21 16:00 Tolerating hemodialysis treatment at the time of my visit (seen on HD at 3:45PM); no apparent distress voiced; no other acute issues/problems to report; no events overnight or earlier this AM. Exam Narrative: General: WD/WN AA male in NAD Heart: normal S1 and S2; no rub Lungs: decreased breath sound bilaterally Abdomen: soft, nontender, nondistended, positive bowel sounds Extremities: no cyanosis or clubbing; no edema Skin: warm and dry Objective Data Vital Signs Vital Signs: Vital Signs Temp Pulse Resp BP Pulse Ox 04/25/21 15:15 93 154/85 H 04/25/21 15:04 94 158/88 H 04/25/21 14:48 37.2 C 94 18 153/85 H 04/25/21 14:00 96 04/25/21 13:02 99 04/25/21 12:00 95 20 138/80 99 04/25/21 10:00 94 04/25/21 08:20 95 22 H 04/25/21 08:19 97 24 H 04/25/21 08:00 36.9 C 94 23 H 139/81 99 04/25/21 06:00 95 04/25/21 04:00 37.0 C 95 17 132/81 99 04/25/21 02:00 85 04/25/21 00:00 36.8 C 95 13 134/76 95 04/24/21 22:00 97 04/24/21 20:05 93 04/24/21 20:00 37.1 C 98 22 H 150/89 H 93 04/24/21 17:51 98 Intake/Output Intake/Output: Intake & Output 04/22/21 04/23/21 04/24/21 04/25/21 23:59 23:59 23:59 23:59 Intake Total 1040 2265 1530 Output Total 2400 0 0 Balance -1360 2265 1530 Meds/Results Medications: Active Medications Generic Name Dose Route Start Last Admin Trade Name Manisha PRN Reason Stop Dose Admin Clonidine HCl 0.3 mg 04/23/21 09:00 04/25/21 07:59 Clonidine Hcl 0.1 Mg Tablet PO 0.3 mg BID ROSALIND Administration Colchicine 0.6 mg 04/24/21 09:00 04/24/21 12:31 Colchicine 0.6 Mg Tablet PO 0.6 mg Q72HR ROSALIND Administration Cyclobenzaprine HCl 10 mg 04/23/21 10:11 04/24/21 15:58 Cyclobenzaprine Hcl 10 Mg Tablet PO 10 mg Q8H PRN Administration Mus
[2021-04-25] MEDS: EPOETIN ALFA 20,000 UNITS/ML VIAL 20000 UNITS IV PUSH (18:23)
[2021-04-25] MEDS: MORPHINE SULFATE (*CRX) 2 MG/ML INJ IV PUSH (18:38)
[2021-04-25] MEDS: METOPROLOL TARTRATE INJ 5 MG/5 ML VIAL IV PUSH (18:40)
--- NOTE | 2021-04-25 19:24 | ECG_ITS ---
Measurements Intervals [place] Rate: 139 P: MS: 0 QRS: 10 QRSD: 88 T: 166 QT: 277 QTc: 421 Interpretive Statements ATRIAL FIBRILLATION WITH RAPID VENTRICULAR RESPONSE ST ELEVATION, PROBABLY EARLY REPOLARIZATION [ST ELEVATION WITH NORMALLY INFLECTED T WAVE] ST DEVIATION AND MODERATE T-WAVE ABNORMALITY, CONSIDER LATERAL ISCHEMIA [-0.1+ mV T WAVE IN I/aVL/V5/V6] ABNORMAL ECG COMPARED TO ECG 04/24/2021 10:01:03 ATRIAL FIBRILLATION NOW PRESENT Electronically Signed On 04-26-2021 13:47:52 DUPLICATOR PUNCH SET UP OPERATOR by Ulisses Allen M.D.
[2021-04-25 20:08] LABS: Glucose Pleural Fluid 95 mg/dL; LDH Pleural Fluid 228 U/L; Total Protein Pleural Fluid 3.8 g/dL
[2021-04-25 20:11] LABS: Partial Thromboplastin Time 56.7 SECONDS (22.3-36.8)
[2021-04-25] MEDS: dilTIAZem 100 MG/100 ML 100 MG/100 ML BAG IV CONT (21:13)
[2021-04-26] VITALS (36 sets, daily range): BP systolic 119–171; BP diastolic 72–129; PULSE 75–131; RESP 15–24; TEMP 35.1–37.3; O2SAT 94–100
[2021-04-26] MEDS: MORPHINE SULFATE (*CRX) 2 MG/ML INJ IV PUSH (00:25)
[2021-04-26] MEDS: oxyCODONE/ACETAMINOPHEN (*CRX) 5-325 MG TABLET 1 TABLET PO (03:38)
[2021-04-26] MEDS: HEPARIN SOD/D5W 100 UNITS/ML 25,000 UNITS/250 ML BAG 20 UNITS IV CONT ×2 (03:41→15:39)
[2021-04-26 04:14] LABS: Hematocrit 29.6 % (42.0-52.0); Hemoglobin 9.2 g/dL (14.0-18.0); Mean Corpuscular HGB Conc 31.1 g/dl (32-36); Mean Corpuscular Hemoglobin 28.6 pg (26-34); Mean Corpuscular Volume 91.9 fl (80-100); Mean Platelet Volume 10.2 fl (7.4-10.4); Platelet Count Result 463 k/mm3 (150-375); Red Blood Count 3.22 M/mm3 (4.6-6.20); Red Cell Distribution Width 18.5 % (11.5-14.5); White Blood Count 14.5 K/mm3 (4.5-10.0)
[2021-04-26 04:32] LABS: Partial Thromboplastin Time 57.6 SECONDS (22.3-36.8)
[2021-04-26 04:57] LABS: Albumin Level 4.4 g/dL (3.5-5.1); Anion Gap 15 mmol/L (8-16); Blood Urea Nitrogen 49 mg/dL (9-20); Calcium 9.2 mg/dL (8.4-10.2); Carbon Dioxide 28 mmol/L (22-30); Chloride 100 mmol/L (98-107); Estimated CRCL calculation 10 ml/min; Estimated Glomerular Filt Rate 8; Glucose 96 mg/dL (65-110); Phosphorus 7.9 mg/dL (2.5-4.5); Potassium 5.2 mmol/L (3.4-5.0); Sodium 143 mmol/L (137-145)
[2021-04-26] MEDS: HEPARIN SODIUM 5,000 UNITS/ML VIAL 2500 UNITS IV PUSH (05:05)
[2021-04-26] MEDS: METOPROLOL TARTRATE 25 MG TABLET PO (05:11)
[2021-04-26] MEDS: dilTIAZem 100 MG/100 ML 100 MG/100 ML BAG IV CONT (07:48)
--- NOTE | 2021-04-26 08:21 | PC.NURSE ---
08:13 PATIENT ARRIVED TO DIALYSIS, ALERT, ORIENTED, VITALS NOTED, NO DISTRESS NOTED, MEDS GOING AT NOTED RATE, IVS INTACT AND PATENT WITH NO PAIN AT SITE. 02 AT 2 LITERS PER NASAL CANNULA
[2021-04-26] MEDS: EPOETIN ALFA-EPBX 10,000 UNITS/ML VIAL 10000 UNITS IV PUSH (09:42)
[2021-04-26] MEDS: SODIUM CHLORIDE 0.9% IV 1,000 ML 999 ML IV CONT (09:43)
--- NOTE | 2021-04-26 10:40 | PM.PNCARD ---
Progress Note: A&P Assessment and Plan (1) Acute pericarditis: Code(s): I30.9 - Acute pericarditis, unspecified <ABHINAV Armstrong - Last Filed: 04/26/21 12:35> Status: Acute <ABHINAV Armstrong - Last Filed: 04/26/21 12:35> Assessment and Plan: EKG abnormality more prominent suggestive of pericarditis with diffuse ST elevations as well as VA depression in AVR. Echocardiogram reveals preserved LV systolic function normal EF, severe concentric LVH with large circumferential pericardial effusion without tamponade physiology. Chest discomfort remains highly atypical, worse with certain movement, position deep breathing but again much improved overall post thoracentesis. Continue with colchicine 0.6mg q72 hrs. <ABHINAV Armstrong - Last Filed: 04/26/21 12:35> (2) Atrial fibrillation with RVR: Code(s): I48.91 - Unspecified atrial fibrillation <ABHINAV Armstrong - Last Filed: 04/26/21 12:35> Status: Acute <ABHINAV Armstrong - Last Filed: 04/26/21 12:35> Assessment and Plan: New diagnosis paroxysmal atrial fibrillation with rapid ventricular response, had converted to sinus rhythm but reverted back to Afib RVR yesterday post-HD. He was placed back on the diliazem drip and is adequately rate controlled and asymptomatic Continue diltiazem 5mg/hr Continue metoprolol 25mg q8h PRN metoprolol 5mg IV if persistently tachycardic >140 <ABHINAV Armstrong - Last Filed: 04/26/21 12:35> (3) Pericardial effusion: Code(s): I31.3 - Pericardial effusion (noninflammatory) <ABHINAV Armstrong - Last Filed: 04/26/21 12:35> Status: Acute <ABHINAV Armstrong - Last Filed: 04/26/21 12:35> Assessment and Plan: Large pericardial effusion circumferential chronic without tamponade physiology. Thoracentesis on 04/23. Precise etiology unclear possibly related to uremia and in light of changes concerning for pericarditis uremic pericarditis although patient is on hemodialysis. <LUCAS ArmstrongC - Last Filed: 04/26/21 12:35> (4) Elevated troponin level not due myocardial infarction: Code(s): R77.8 - Other specified abnormalities of plasma proteins <LUCAS ArmstrongC - Last Filed: 04/26/21 12:35> Status: Acute <Rebeca Wen APN-C - Last Filed: 04/26/21 12:35> Assessment and Plan: Flat curve not secondary to acute coronary syndrome and/or plaque rupture. Secondary to atrial fibrillation with RVR, end-stage renal disease on hemodialysis and uncontrolled hypertension. Possibly related to myopericarditis as well given EKG changes, pericardial effusion. <LUCAS ArmstrongC - Last Filed: 04/26/21 12:35> (5) Atypical chest pain: Code(s): R07.89 - Other chest pain <LUCAS ArmstrongC - Last Filed: 04/26/21 12:35> Status: Acute <Rebeca Wen APN-C - Last Filed: 04/26/21 12:35> Assessment and Plan: As above. Atypical reproducible musculoskeletal chest pain worse with deep breathing, coughing and or movement much improved overall clinically, symptoms now mild improved with thoracentesis as well. <ABHINAV Armstrong - Last Filed: 04/26/21 12:35> (6) Uncontrolled hypertension: Code(s): I10 - Essential (primary) hypertension <LUCAS ArmstrongC - Last Filed: 04/26/21 12:35> Status: Acute <Rebeca Wen APN-C - Last Filed: 04/26/21 12:35> Assessment and Plan: Continue antihypertensives. Monitor BP closely in addition to AV bridger blocking agents. Better controlled overall. <ABIHNAV Armstrong - Last Filed: 04/26/21 12:35> (7) ESRD needing dialysis: Code(s): N18.6 - End stage renal disease; Z99.2 - Dependence on renal dialysis <ABHINAV Armstrong - Last Filed: 04/26/21 12:35> Status: Acute <ABHINAV Armstrong - Last Filed: 04/26/21 12:35> Assessment and Plan: Per josué
[2021-04-26 11:17] LABS: Partial Thromboplastin Time 114.9 SECONDS (22.3-36.8)
--- NOTE | 2021-04-26 11:18 | P.PNNP_ITS ---
Progress Note: A&P Assessment and Plan (1) End stage renal disease: Code(s): N18.6 - End stage renal disease Status: Chronic Assessment and Plan: * HD today and plan daily dialysis for the next few days * follow electrolytes, volume status, and clearance * push fluid removal given CXR findings as well as large pericardial effusion with concern for uremic pericardiitis (2) Atrial fibrillation with RVR: Code(s): I48.91 - Unspecified atrial fibrillation Status: Acute Assessment and Plan: * presumably a new finding * continue rate control strategy as tolerated * continue anticoagulation * Echo results noted * large pericardial effusion -- due to minoxidil use versus poor dialysis (uremic pericarditis)?? * Cardiology following (3) Acute pericarditis: Code(s): I30.9 - Acute pericarditis, unspecified Status: Acute Assessment and Plan: * suspected given evidence to date (Echo results, EKG findings...etc) * colchicine per Cardiology * plan daily hemodialysis for the next few days (4) Pleural effusion: Code(s): J90 - Pleural effusion, not elsewhere classified Status: Acute Assessment and Plan: * as noted by CXR * s/p left thoracentesis (on 04/23/21) * follow-up on pleural fluid studies/cultures (5) Hypertension: Qualifiers: Hypertension type: renovascular hypertension Qualified Code(s): I15.0 - Renovascular hypertension Code(s): I10 - Essential (primary) hypertension Status: Acute Assessment and Plan: * suspect poorly controlled at baseline given that he is on multiple agents (clonidine, minoxidil, hydralazine...etc) * follow trend of hemodynamics with home medications * rate control medications for Afib may help this issue as well (6) Anemia: Code(s): D64.9 - Anemia, unspecified Status: Acute Assessment and Plan: * due to ESRD * per outpatient HD unit, poor responder to Epogen therapy * follow trend of H/H * continue Epogen with dialysis Will continue to follow. Subjective Date/time seen: 04/26/21 11:18 Tolerating dialysis treatment at the time of my visit (seen on HD at 11:00AM); states he feels about the same (no worse but no better); pleuritic chest pain and associated cought; denies any palpitations; no issues/events overnight or earlier this AM. Exam Narrative: General: WD/WN AA male in NAD Heart: tachycardic, normal S1 and S2 Lungs: decreased breath sound bilaterally Abdomen: soft, nontender, nondistended, positive bowel sounds Extremities: no cyanosis or clubbing; no edema Skin: no rash or nodules Objective Data Vital Signs Vital Signs: Vital Signs Temp Pulse Resp BP Pulse Ox 04/26/21 11:18 107 H 146/98 H 04/26/21 11:00 123 H 163/122 H 04/26/21 10:40 111 H 148/92 H 04/26/21 10:20 105 H 171/122 H 04/26/21 10:00 105 H 152/96 H 04/26/21 09:40 99 145/88 H 04/26/21 09:20 92 158/84 H 04/26/21 09:05 92 140/84 04/26/21 08:48 94 143/104 H 04/26/21 08:32 86 146/129 H 04/26/21 08:17 75 136/85 04/26/21 08:10 36.7 C 76 16 143/122 H 100 04/26/21 08:00 36.2 C L 89 17 140/81 94 04/26/21 07:48 82 140/81 04/26/21 06:00 84 04/26/21 05:11 87
--- NOTE | 2021-04-26 11:18 | PM.PNNEP ---
Progress Note: A&P Assessment and Plan (1) End stage renal disease: Code(s): N18.6 - End stage renal disease Status: Chronic Assessment and Plan: HD today and plan daily dialysis for the next few days follow electrolytes, volume status, and clearance push fluid removal given CXR findings as well as large pericardial effusion with concern for uremic pericardiitis (2) Atrial fibrillation with RVR: Code(s): I48.91 - Unspecified atrial fibrillation Status: Acute Assessment and Plan: presumably a new finding continue rate control strategy as tolerated continue anticoagulation Echo results noted large pericardial effusion -- due to minoxidil use versus poor dialysis (uremic pericarditis)?? Cardiology following (3) Acute pericarditis: Code(s): I30.9 - Acute pericarditis, unspecified Status: Acute Assessment and Plan: suspected given evidence to date (Echo results, EKG findings...etc) colchicine per Cardiology plan daily hemodialysis for the next few days (4) Pleural effusion: Code(s): J90 - Pleural effusion, not elsewhere classified Status: Acute Assessment and Plan: as noted by CXR s/p left thoracentesis (on 04/23/21) follow-up on pleural fluid studies/cultures (5) Hypertension: Qualifiers: Hypertension type: renovascular hypertension Qualified Code(s): I15.0 - Renovascular hypertension Code(s): I10 - Essential (primary) hypertension Status: Acute Assessment and Plan: suspect poorly controlled at baseline given that he is on multiple agents (clonidine, minoxidil, hydralazine...etc) follow trend of hemodynamics with home medications rate control medications for Afib may help this issue as well (6) Anemia: Code(s): D64.9 - Anemia, unspecified Status: Acute Assessment and Plan: due to ESRD per outpatient HD unit, poor responder to Epogen therapy follow trend of H/H continue Epogen with dialysis Will continue to follow. Subjective Date/time seen: 04/26/21 11:18 Tolerating dialysis treatment at the time of my visit (seen on HD at 11:00AM); states he feels about the same (no worse but no better); pleuritic chest pain and associated cought; denies any palpitations; no issues/events overnight or earlier this AM. Exam Narrative: General: WD/WN AA male in NAD Heart: tachycardic, normal S1 and S2 Lungs: decreased breath sound bilaterally Abdomen: soft, nontender, nondistended, positive bowel sounds Extremities: no cyanosis or clubbing; no edema Skin: no rash or nodules Objective Data Vital Signs Vital Signs: Vital Signs Temp Pulse Resp BP Pulse Ox 04/26/21 11:18 107 H 146/98 H 04/26/21 11:00 123 H 163/122 H 04/26/21 10:40 111 H 148/92 H 04/26/21 10:20 105 H 171/122 H 04/26/21 10:00 105 H 152/96 H 04/26/21 09:40 99 145/88 H 04/26/21 09:20 92 158/84 H 04/26/21 09:05 92 140/84 04/26/21 08:48 94 143/104 H 04/26/21 08:32 86 146/129 H 04/26/21 08:17 75 136/85 04/26/21 08:10 36.7 C 76 16 143/122 H 100 04/26/21 08:00 36.2 C L 89 17 140/81 94 04/26/21 07:48 82 140/81 04/26/21 06:00 84 04/26/21 05:11 87 04/26/21 05:08 83 132/72 04/26/21 04:00 36.9 C 89 23 H 139/94 H 95 04/26/21 02:00 84 04/26/21 00:00 37.1 C 131 H 24 H 119/85 95 04/25/21 22:31 138 H 113/77 04/25/21 22:20 137 H 04/25/21 22:00 37.2 C 139 H 113/77 04/25/21 21:13 140 H 114/85 04/25/21 20:21 93 04/25/21 20:00 37.4 C 141 H 24 H 114/85 96 04/25/21 18:40 155 H 04/25/21 18:35 155 H 124/77 04/25/21 18:00 37.2 C 153 H 16 151/94 H 04/25/21 17:49 126 H 144/97 H 04/25/21 17:45 56 L 161/93 H 04/25/21 17:30 92 164/91 H 04/25/21 17:15 106 H 147/89 H 04/25/21 17:00 100 166/94 H 04/25/21 16:45 99 146/7
--- NOTE | 2021-04-26 11:50 | PC.NURSE ---
RETURNED T0 ROOM, NO DISTRESS NOTED, VITAL NOTED
[2021-04-26] MEDS: minoxidiL 2.5 MG TABLET PO (11:56)
[2021-04-26] MEDS: cloNIDine HCL 0.1 MG TABLET 0.3 MG PO (11:56)
[2021-04-26] MEDS: LIDOCAINE 5% PATCH 1 PATCH TRANSDERM (11:56)
[2021-04-26 12:01] LABS: Hepatitis B Core Ab Total Nonreactive (Nonreactive)
[2021-04-26 14:18] LABS: Amylase, Pleural Fluid 25 U/L
--- NOTE | 2021-04-26 14:46 | PM.IMPN ---
Progress Note: A&P Assessment and Plan (1) Acute pericarditis: Code(s): I30.9 - Acute pericarditis, unspecified Status: Acute (2) Pericardial effusion: Code(s): I31.3 - Pericardial effusion (noninflammatory) Status: Acute (3) Anemia: Code(s): D64.9 - Anemia, unspecified Status: Acute (4) Atrial fibrillation with RVR: Code(s): I48.91 - Unspecified atrial fibrillation Status: Acute (5) Elevated troponin level not due myocardial infarction: Code(s): R77.8 - Other specified abnormalities of plasma proteins Status: Acute (6) Atypical chest pain: Code(s): R07.89 - Other chest pain Status: Acute (7) Uncontrolled hypertension: Code(s): I10 - Essential (primary) hypertension Status: Acute (8) ESRD (end stage renal disease): Code(s): N18.6 - End stage renal disease Status: Acute (9) Seizures: Code(s): R56.9 - Unspecified convulsions Status: Acute (10) Tobacco abuse: Code(s): Z72.0 - Tobacco use Status: Acute (11) COPD (chronic obstructive pulmonary disease): Qualifiers: COPD type: unspecified COPD Qualified Code(s): J44.9 - Chronic obstructive pulmonary disease, unspecified Code(s): J44.9 - Chronic obstructive pulmonary disease, unspecified Status: Acute (12) Hypertension: Qualifiers: Hypertension type: renovascular hypertension Qualified Code(s): I15.0 - Renovascular hypertension Code(s): I10 - Essential (primary) hypertension Status: Acute Assessment and Plan: Patient is a 50-year-old male with history of end-stage renal disease on hemodialysis presented with complaint of chest pain across his chest last 2 3 days patient denies any injury to chest, the pain is reproducible upon by pressing on the chest, patient tropes are elevated most likely secondary to end-stage renal disease and demand ischemia due to pain unlikely ruptured plaque. there are no acute changes on EKG, patient was started on heparin, also upon arrival patient was in atrial fibrillation with RVR most likely new onset is patient does not have any rate limiting medication, patient was given metoprolol IV 5 mg that converted patient to sinus rhythm, chest x-ray showed cardiomegaly, patient stats he had cardiac ECHO 3 yrs ago at [facility], will do cardiac echo to recheck, he has had thoracentesis in the past, will order thoracentesis therapeutic, patient will be seen by digital field service technician and further recommendation to follow, patient will have dialysis today, will continue to monitor. upon arrival patient had fever and elevated white count concerning for pneumonia started the patient on azithromycin and Rocephin, patient D-dimer is elevated V/Q scan intermediate probability for PE currently patient is on heparin, will do the lower extremity Doppler and further recommendation to follow. 04/24/21 remains on heparin gtt x probable PE and afib pericarditis on colchicine pericardial effusion stable without tamponade HD per nephro BP not at goal meds have been adjusted today by cardiology acute pain lidocaine patch for low back, morphine iv x breakthrough and Percocet PRN added to MAR elevated BP likely multifactorial rebound from clonidine and 2/2 to pain cont current care 04/25/21 BP near goal HD MWF pain improved remains on heparin gtt -> warfarin soon? 04/26/21 Metoprolol 50 t.i.d. Weaned from Cardizem drip when able Currently on heparin drip will transition OAC Continue pain medication Continue colchicine Continue hemodialysis per Nephro Subjective Date/time seen: 04/26/21 14:46 case reviewed w cardiology recs appreciated Exam Narrative: GEN: NAD HEENT: eyes are clear and nonicteric EOMI Lower extremities: no edema SKIN: nonjaundiced Neuro: CN intact no gross motor deficits Objective Data Vital Signs Vital Signs: Vital Signs - 24
[2021-04-26] MEDS: METOPROLOL TARTRATE 50 MG TAB PO ×2 (14:49→21:44)
[2021-04-26 17:21] LABS: Partial Thromboplastin Time 80.3 SECONDS (22.3-36.8)
--- NOTE | 2021-04-26 18:14 | PC.NURSE ---
held bp meds d/t bp at this moment, new order carried out per radha eldridge to monitor
[2021-04-26] MEDS: FLUTICASONE/SALMETEROL 115-21 MCG INHALER 1 PUFF 2 PUFF INHALATION (20:44)
[2021-04-26] MEDS: hydrALAZINE HCL 50 MG TABLET 100 MG PO (21:44)
[2021-04-26] MEDS: ACETAMINOPHEN 325 MG TABLET 650 MG PO (22:30)
[2021-04-26 23:22] LABS: Partial Thromboplastin Time 102.7 SECONDS (22.3-36.8)
[2021-04-27] VITALS (37 sets, daily range): BP systolic 118–166; BP diastolic 73–95; PULSE 63–98; RESP 14–24; TEMP 36–37.6; O2SAT 95–100
--- NOTE | 2021-04-27 01:31 | ECG_ITS ---
Measurements Intervals [place] Rate: 86 P: 20 MO: 136 QRS: 13 QRSD: 94 T: 88 QT: 379 QTc: 454 Interpretive Statements SINUS RHYTHM ST ELEVATION CONSISTENT WITH INJURY, PERICARDITIS, OR EARLY REPOLARIZATION [ST ELEVATION W/O NORMALLY INFLECTED T WAVE] NONSPECIFIC ST & T-WAVE ABNORMALITY ABNORMAL ECG COMPARED TO ECG 04/25/2021 19:35:13 SINUS RHYTHM REPLACES ATRIAL FIBRILLATION Electronically Signed On 04-27-2021 7:15:04 METAL BASE BLOCKER by Neil Koo M.D.
[2021-04-27] MEDS: dilTIAZem 100 MG/100 ML 100 MG/100 ML BAG IV CONT (02:37)
[2021-04-27] MEDS: HEPARIN SOD/D5W 100 UNITS/ML 25,000 UNITS/250 ML BAG 20 UNITS IV CONT ×2 (02:44→15:27)
[2021-04-27 04:21] LABS: Hematocrit 27.3 % (42.0-52.0); Hemoglobin 8.5 g/dL (14.0-18.0); Mean Corpuscular HGB Conc 31.1 g/dl (32-36); Mean Corpuscular Hemoglobin 28.7 pg (26-34); Mean Corpuscular Volume 92.2 fl (80-100); Mean Platelet Volume 10.3 fl (7.4-10.4); Platelet Count Result 458 k/mm3 (150-375); Red Blood Count 2.96 M/mm3 (4.6-6.20); Red Cell Distribution Width 18.5 % (11.5-14.5); White Blood Count 11.6 K/mm3 (4.5-10.0)
[2021-04-27] MEDS: oxyCODONE/ACETAMINOPHEN (*CRX) 5-325 MG TABLET 1 TABLET PO ×4 (04:29→21:06)
[2021-04-27 04:32] LABS: Partial Thromboplastin Time 78.2 SECONDS (22.3-36.8)
[2021-04-27 04:33] LABS: Anion Gap 14 mmol/L (8-16); Blood Urea Nitrogen 43 mg/dL (9-20); Calcium 9.1 mg/dL (8.4-10.2); Carbon Dioxide 23 mmol/L (22-30); Chloride 101 mmol/L (98-107); Estimated CRCL calculation 12 ml/min; Estimated Glomerular Filt Rate 11; Glucose 109 mg/dL (65-110); Phosphorus 7.8 mg/dL (2.5-4.5); Potassium 4.8 mmol/L (3.4-5.0); Sodium 138 mmol/L (137-145)
[2021-04-27] MEDS: METOPROLOL TARTRATE 50 MG TAB PO ×2 (06:47→15:22)
[2021-04-27] MEDS: hydrALAZINE HCL 50 MG TABLET 100 MG PO ×3 (06:47→21:02)
[2021-04-27] MEDS: FLUTICASONE/SALMETEROL 115-21 MCG INHALER 1 PUFF 2 PUFF INHALATION ×2 (08:15→20:19)
[2021-04-27] MEDS: EPOETIN ALFA-EPBX 10,000 UNITS/ML VIAL 10000 UNITS IV PUSH (10:38)
[2021-04-27] MEDS: SODIUM CHLORIDE 0.9% IV 1,000 ML 999 ML IV CONT ×2 (10:39→10:40)
--- NOTE | 2021-04-27 10:48 | P.PNNP_ITS ---
Progress Note: A&P Assessment and Plan (1) End stage renal disease: Code(s): N18.6 - End stage renal disease Status: Chronic Assessment and Plan: * HD today and tomorrow. * Volume status looks okay. * Taking fluid off as tolerated. * Check another chest x-ray tomorrow (2) Atrial fibrillation with RVR: Code(s): I48.91 - Unspecified atrial fibrillation Status: Acute Assessment and Plan: * presumably a new finding * continue rate control strategy as tolerated * continue anticoagulation * Echo results noted * large pericardial effusion -- due to minoxidil use versus poor dialysis (uremic pericarditis)?? * if we take fluid off too quickly we may get into a tamponade situation. So far his blood pressure is fine though. * Cardiology following (3) Acute pericarditis: Code(s): I30.9 - Acute pericarditis, unspecified Status: Acute Assessment and Plan: * suspected given evidence to date (Echo results, EKG findings...etc) * colchicine per Cardiology * plan daily hemodialysis for the next few days (4) Pleural effusion: Code(s): J90 - Pleural effusion, not elsewhere classified Status: Acute Assessment and Plan: * as noted by CXR * s/p left thoracentesis (on 04/23/21) * follow-up on pleural fluid studies/cultures (5) Hypertension: Qualifiers: Hypertension type: renovascular hypertension Qualified Code(s): I15.0 - Renovascular hypertension Code(s): I10 - Essential (primary) hypertension Status: Acute Assessment and Plan: * suspect poorly controlled at baseline given that he is on multiple agents (clonidine, minoxidil, hydralazine...etc) * His blood pressure is better. Ranging between 130 and 160. * rate control medications for Afib may help this issue as well (6) Anemia: Code(s): D64.9 - Anemia, unspecified Status: Acute Assessment and Plan: * due to ESRD * per outpatient HD unit, poor responder to Epogen therapy * Hemoglobin bouncing around between 8.5 and 10.3. * continue Epogen with dialysis Subjective Date/time seen: 04/27/21 10:48 Interval history: Patient feels short of breath still. But he is better he is on dialysis and tolerating it well. He was seen at 9:40 a.m. he did have some cramping so we have backed off on the ultrafiltration. Since were doing him every day we do not really need to take all that much off. Review of Systems Cardiovascular: Cardiovascular: Reports no additional cardiovascular complaints Respiratory: Respiratory: Reports no additional respiratory complaints Gastrointestinal: Gastrointestinal: Reports no additional gastrointestinal complaints Genitourinary: Genitourinary: Reports no additional male genitourinary complaints Exam Narrative: General: WD/WN AA male in NAD Heart: tachycardic, normal S1 and S2 I do not hear a rub Lungs: decreased breath sound At the bases Abdomen: soft, nontender, nondistended, positive bowel sounds Extremities: no cyanosis or clubbing; no edema Skin: no rash Objective Data Vital Signs Vital Signs: Vital Signs - 24 hr 04/26/21 11:00 04/26/21 11:18 04/26/21 11:29 Temperature 36.6 C Pulse Rate 123 H 107 H 113 H Respiratory Rate 15 Blood Pressure 163/122 H 146/98 H 165/79 H Pulse Oximetry 97 04/26/21
--- NOTE | 2021-04-27 10:48 | PM.PNNEP ---
Progress Note: A&P Assessment and Plan (1) End stage renal disease: Code(s): N18.6 - End stage renal disease Status: Chronic Assessment and Plan: HD today and tomorrow. Volume status looks okay. Taking fluid off as tolerated. Check another chest x-ray tomorrow (2) Atrial fibrillation with RVR: Code(s): I48.91 - Unspecified atrial fibrillation Status: Acute Assessment and Plan: presumably a new finding continue rate control strategy as tolerated continue anticoagulation Echo results noted large pericardial effusion -- due to minoxidil use versus poor dialysis (uremic pericarditis)?? if we take fluid off too quickly we may get into a tamponade situation. So far his blood pressure is fine though. Cardiology following (3) Acute pericarditis: Code(s): I30.9 - Acute pericarditis, unspecified Status: Acute Assessment and Plan: suspected given evidence to date (Echo results, EKG findings...etc) colchicine per Cardiology plan daily hemodialysis for the next few days (4) Pleural effusion: Code(s): J90 - Pleural effusion, not elsewhere classified Status: Acute Assessment and Plan: as noted by CXR s/p left thoracentesis (on 04/23/21) follow-up on pleural fluid studies/cultures (5) Hypertension: Qualifiers: Hypertension type: renovascular hypertension Qualified Code(s): I15.0 - Renovascular hypertension Code(s): I10 - Essential (primary) hypertension Status: Acute Assessment and Plan: suspect poorly controlled at baseline given that he is on multiple agents (clonidine, minoxidil, hydralazine...etc) His blood pressure is better. Ranging between 130 and 160. rate control medications for Afib may help this issue as well (6) Anemia: Code(s): D64.9 - Anemia, unspecified Status: Acute Assessment and Plan: due to ESRD per outpatient HD unit, poor responder to Epogen therapy Hemoglobin bouncing around between 8.5 and 10.3. continue Epogen with dialysis Subjective Date/time seen: 04/27/21 10:48 Interval history: Patient feels short of breath still. But he is better he is on dialysis and tolerating it well. He was seen at 9:40 a.m. he did have some cramping so we have backed off on the ultrafiltration. Since were doing him every day we do not really need to take all that much off. Review of Systems Cardiovascular: Cardiovascular: Reports no additional cardiovascular complaints Respiratory: Respiratory: Reports no additional respiratory complaints Gastrointestinal: Gastrointestinal: Reports no additional gastrointestinal complaints Genitourinary: Genitourinary: Reports no additional male genitourinary complaints Exam Narrative: General: WD/WN AA male in NAD Heart: tachycardic, normal S1 and S2 I do not hear a rub Lungs: decreased breath sound At the bases Abdomen: soft, nontender, nondistended, positive bowel sounds Extremities: no cyanosis or clubbing; no edema Skin: no rash Objective Data Vital Signs Vital Signs: Vital Signs - 24 hr 04/26/21 11:00 04/26/21 11:18 04/26/21 11:29 Temperature 36.6 C Pulse Rate 123 H 107 H 113 H Respiratory Rate 15 Blood Pressure 163/122 H 146/98 H 165/79 H Pulse Oximetry 97 04/26/21 11:50 04/26/21 12:00 04/26/21 12:27 Temperature 35.9 C L Pulse Rate 107 H 98 98 Respiratory Rate 17 17 Blood Pressure 154/101 H 142/78 H Pulse Oximetry 100 99 99 04/26/21 14:00 04/26/21 14:49 04/26/21 14:51 Temperature Pulse Rate 111 H 111 H 118 H Respiratory Rate Blood Pressure 129/91 H Pulse Oximetry 04/26/21 15:04 04/26/21 15:09 04/26/21 15:11 Temperature 36.2 C L Pulse Rate 111 H 112 H Respiratory Rate 19 Blood Pressure 136/93 H Pulse Oximetry 100 04/26/21 17:37 04/26/21 17:40 04/26/21 20:00 Temperature 36.9 C 37.3 C Pulse Rate 98 108 H 97 Respiratory R
[2021-04-27] MEDS: CYCLOBENZAPRINE HCL 10 MG TABLET PO (12:24)
[2021-04-27] MEDS: minoxidiL 2.5 MG TABLET PO ×2 (12:25→16:52)
[2021-04-27] MEDS: COLCHICINE 0.6 MG TABLET PO (12:25)
[2021-04-27] MEDS: cloNIDine HCL 0.1 MG TABLET 0.3 MG PO ×2 (12:26→16:52)
[2021-04-27] MEDS: LIDOCAINE 5% PATCH 1 PATCH TRANSDERM (12:27)
--- NOTE | 2021-04-27 13:10 | PM.IMPN ---
Progress Note: A&P Assessment and Plan (1) Acute pericarditis: Code(s): I30.9 - Acute pericarditis, unspecified Status: Acute (2) Pericardial effusion: Code(s): I31.3 - Pericardial effusion (noninflammatory) Status: Acute (3) Anemia: Code(s): D64.9 - Anemia, unspecified Status: Acute (4) Atrial fibrillation with RVR: Code(s): I48.91 - Unspecified atrial fibrillation Status: Acute (5) Elevated troponin level not due myocardial infarction: Code(s): R77.8 - Other specified abnormalities of plasma proteins Status: Acute (6) Atypical chest pain: Code(s): R07.89 - Other chest pain Status: Acute (7) Uncontrolled hypertension: Code(s): I10 - Essential (primary) hypertension Status: Acute (8) ESRD (end stage renal disease): Code(s): N18.6 - End stage renal disease Status: Acute (9) Seizures: Code(s): R56.9 - Unspecified convulsions Status: Acute (10) Tobacco abuse: Code(s): Z72.0 - Tobacco use Status: Acute (11) COPD (chronic obstructive pulmonary disease): Qualifiers: COPD type: unspecified COPD Qualified Code(s): J44.9 - Chronic obstructive pulmonary disease, unspecified Code(s): J44.9 - Chronic obstructive pulmonary disease, unspecified Status: Acute (12) Hypertension: Qualifiers: Hypertension type: renovascular hypertension Qualified Code(s): I15.0 - Renovascular hypertension Code(s): I10 - Essential (primary) hypertension Status: Acute Assessment and Plan: Patient is a 50-year-old male with history of end-stage renal disease on hemodialysis presented with complaint of chest pain across his chest last 2 3 days patient denies any injury to chest, the pain is reproducible upon by pressing on the chest, patient tropes are elevated most likely secondary to end-stage renal disease and demand ischemia due to pain unlikely ruptured plaque. there are no acute changes on EKG, patient was started on heparin, also upon arrival patient was in atrial fibrillation with RVR most likely new onset is patient does not have any rate limiting medication, patient was given metoprolol IV 5 mg that converted patient to sinus rhythm, chest x-ray showed cardiomegaly, patient stats he had cardiac ECHO 3 yrs ago at [facility], will do cardiac echo to recheck, he has had thoracentesis in the past, will order thoracentesis therapeutic, patient will be seen by heel edge inker machine and further recommendation to follow, patient will have dialysis today, will continue to monitor. upon arrival patient had fever and elevated white count concerning for pneumonia started the patient on azithromycin and Rocephin, patient D-dimer is elevated V/Q scan intermediate probability for PE currently patient is on heparin, will do the lower extremity Doppler and further recommendation to follow. 04/24/21 remains on heparin gtt x probable PE and afib pericarditis on colchicine pericardial effusion stable without tamponade HD per nephro BP not at goal meds have been adjusted today by cardiology acute pain lidocaine patch for low back, morphine iv x breakthrough and Percocet PRN added to MAR elevated BP likely multifactorial rebound from clonidine and 2/2 to pain cont current care 04/25/21 BP near goal HD MWF pain improved remains on heparin gtt -> warfarin soon? 04/26/21 Metoprolol 50 t.i.d. Weaned from Cardizem drip when able Currently on heparin drip will transition OAC Continue pain medication Continue colchicine Continue hemodialysis per Nephro 04/27/21 Warfarin ordered dc heparin when fully anticoagulated HD tomorrow per Dr Lanier chest pain improving cont current care Subjective Date/time seen: 04/27/21 13:10 Has finished HD today still with elevated blood pressure and ongoing chest pain, complains of chronic SOB Exam Narrative: GEN: NA
[2021-04-27 14:19] LABS: INR 1.4; Prothrombin Time 16.7 Seconds (11.1-14.7)
--- NOTE | 2021-04-27 14:19 | PM.PNCARD ---
Progress Note: A&P Assessment and Plan (1) Acute pericarditis: Code(s): I30.9 - Acute pericarditis, unspecified Status: Acute Assessment and Plan: EKG abnormality more prominent suggestive of pericarditis with diffuse ST elevations as well as OH depression in AVR. Echocardiogram reveals preserved LV systolic function normal EF, severe concentric LVH with large circumferential pericardial effusion without tamponade physiology. Chest discomfort remains highly atypical, worse with certain movement, position deep breathing but again much improved overall post thoracentesis. Continue with colchicine 0.6mg q72 hrs. Must not be continued any longer than 2 months to avoid toxicity risks. Will initially plan for 1 month with further recommendation to follow based on clinical status. -Repeat 12 lead EKG. (2) Atrial fibrillation with RVR: Code(s): I48.91 - Unspecified atrial fibrillation Status: Acute Assessment and Plan: New diagnosis paroxysmal atrial fibrillation with rapid ventricular response, had converted to sinus rhythm but reverted back to Afib RVR yesterday post-HD. He was placed back on the diltiazem drip and is adequately rate controlled and asymptomatic Reduce diltiazem to 5 milligrams/hours the discontinue infusion. Change metoprolol to 100 mg b.i.d. after 50 mg p.o. dose this afternoon. Will try to avoid diltiazem possible due to interaction with colchicine. Warfarin initiated. Eliquis would be preferred if able to obtain due to convenience. (3) Pericardial effusion: Code(s): I31.3 - Pericardial effusion (noninflammatory) Status: Acute Assessment and Plan: Large pericardial effusion circumferential chronic without tamponade physiology. Thoracentesis on 04/23. Precise etiology unclear possibly related to uremia and in light of changes concerning for pericarditis uremic pericarditis although patient is on hemodialysis. ? Minoxidil. Patient hemodynamically stable. Caution to avoid significant hypotension and or significant intravascular volume depletion. (4) Elevated troponin level not due myocardial infarction: Code(s): R77.8 - Other specified abnormalities of plasma proteins Status: Acute Assessment and Plan: Flat curve not secondary to acute coronary syndrome and/or plaque rupture. Secondary to atrial fibrillation with RVR, end-stage renal disease on hemodialysis and uncontrolled hypertension. Possibly related to myopericarditis as well given EKG changes, pericardial effusion. (5) Atypical chest pain: Code(s): R07.89 - Other chest pain Status: Acute Assessment and Plan: As above. Atypical reproducible musculoskeletal chest pain worse with deep breathing, coughing and or movement much improved overall clinically. Colchicine, pain management. (6) Uncontrolled hypertension: Code(s): I10 - Essential (primary) hypertension Status: Acute Assessment and Plan: Continue antihypertensives. Monitor BP closely in addition to AV bridger blocking agents. Better controlled overall. (7) ESRD needing dialysis: Code(s): N18.6 - End stage renal disease; Z99.2 - Dependence on renal dialysis Status: Acute Assessment and Plan: Per nephrology. Undergoing hemodialysis currently. Volume management with hemodialysis. (8) Pleural effusion: Code(s): J90 - Pleural effusion, not elsewhere classified Status: Acute Assessment and Plan: Status post thoracentesis 400 mg. (9) COPD (chronic obstructive pulmonary disease): Qualifiers: COPD type: unspecified COPD Qualified Code(s): J44.9 - Chronic obstructive pulmonary disease, unspecified Code(s): J44.9 - Chronic obstructive pulmonary disease, unspecified Status: Acute Assessment and Plan: Per primary service. Subjective Date/time seen: Date of service: 04/27/21 14:19 Follow-up for pericarditis, atrial fibrillation w
[2021-04-27] MEDS: APIXABAN 2.5 MG TABLET PO (20:59)
[2021-04-27] MEDS: METOPROLOL TARTRATE 50 MG TAB 100 MG PO (21:00)
[2021-04-28] VITALS (19 sets, daily range): BP systolic 120–157; BP diastolic 59–132; PULSE 62–105; RESP 13–26; TEMP 36–37.2; O2SAT 91–99
[2021-04-28] MEDS: oxyCODONE/ACETAMINOPHEN (*CRX) 5-325 MG TABLET 1 TABLET PO (01:24)
[2021-04-28 04:33] LABS: Hematocrit 26.7 % (42.0-52.0); Hemoglobin 8.3 g/dL (14.0-18.0); Mean Corpuscular HGB Conc 31.1 g/dl (32-36); Mean Corpuscular Hemoglobin 29.2 pg (26-34); Mean Platelet Volume 10.1 fl (7.4-10.4); Platelet Count Result 495 k/mm3 (150-375); Red Blood Count 2.84 M/mm3 (4.6-6.20); Red Cell Distribution Width 18.7 % (11.5-14.5); White Blood Count 13.2 K/mm3 (4.5-10.0)
[2021-04-28 04:44] LABS: Albumin Level 4.1 g/dL (3.5-5.1); Anion Gap 12 mmol/L (8-16); Blood Urea Nitrogen 33 mg/dL (9-20); Calcium 9.8 mg/dL (8.4-10.2); Carbon Dioxide 25 mmol/L (22-30); Chloride 104 mmol/L (98-107); Estimated CRCL calculation 13 ml/min; Estimated Glomerular Filt Rate 11; Glucose 101 mg/dL (65-110); INR 1.6; Phosphorus 7.2 mg/dL (2.5-4.5); Potassium 4.9 mmol/L (3.4-5.0); Prothrombin Time 18.6 Seconds (11.1-14.7); Sodium 141 mmol/L (137-145)
[2021-04-28 04:46] LABS: Partial Thromboplastin Time 59.3 SECONDS (22.3-36.8)
[2021-04-28] MEDS: hydrALAZINE HCL 50 MG TABLET 100 MG PO ×3 (05:58→21:16)
[2021-04-28] MEDS: METOPROLOL TARTRATE 50 MG TAB 100 MG PO ×2 (08:23→21:16)
[2021-04-28] MEDS: cloNIDine HCL 0.1 MG TABLET 0.3 MG PO ×3 (08:24→16:09)
[2021-04-28] MEDS: minoxidiL 2.5 MG TABLET PO ×2 (08:24→12:15)
[2021-04-28] MEDS: LIDOCAINE 5% PATCH 1 PATCH TRANSDERM (08:24)
[2021-04-28] MEDS: APIXABAN 2.5 MG TABLET PO ×2 (08:25→21:16)
[2021-04-28] MEDS: FLUTICASONE/SALMETEROL 115-21 MCG INHALER 1 PUFF 2 PUFF INHALATION (08:58)
--- NOTE | 2021-04-28 09:05 | PC.NURSE ---
0900- Patient having right lower abdominal paiin , tenderness and cramping refused HD treatment this morning and declined PRN pain medication at this time. Lidoderm patch applied to area.
--- NOTE | 2021-04-28 09:44 | P.DS_ITS ---
DS: Summary Time Spent with Patient Time attestation: Total time spent providing and/or coordinating discharge ser vices: DS: Data Data Completed and Pending Completed studies during hospitalization: Pending at discharge 04/23/21 15:54 Cytology [PTH] Routine Labs on day of discharge: Labs from last 24 hours 04/28/21 04/28/21 04/28/21 04:27 04:27 04:27 WBC 13.2 H RBC 2.84 L Hgb 8.3 L Hct 26.7 L MCV 94.0 MCH 29.2 MCHC 31.1 L RDW 18.7 H Plt Count 495 H MPV 10.1 PT 18.6 H INR 1.6 APTT 59.3 H Sodium 141 Potassium 4.9 Chloride 104 Carbon Dioxide 25 Anion Gap 12 BUN 33 H D Creatinine 6.30 H Estim Creat Clear Calc 13 Estimated GFR 11 L Glucose 101 Calcium 9.8 Phosphorus 7.2 H Albumin 4.1 04/27/21 13:56 WBC RBC Hgb Hct MCV MCH MCHC RDW Plt Count MPV PT 16.7 H INR 1.4 APTT Sodium Potassium Chloride Carbon Dioxide Anion Gap BUN Creatinine Estim Creat Clear Calc Estimated GFR Glucose Calcium Phosphorus Albumin Preliminary micro results at discharge 04/23/21 16:04 Anaerobic Culture - Preliminary Pleural Fluid Aerobic Culture - Preliminary Fungal Culture - Preliminary 04/23/21 04:13 Blood Culture - Preliminary Blood 04/23/21 04:13 Blood Culture - Preliminary Blood Discharge Plan Discharge Consulting providers: King Zurita ; Ulisses Allen Discharge Medications: No Action clonidine HCl 0.3 mg tablet 0.3 mg PO BID RF: 0 minoxidil 2.5 mg tablet 2.5 mg PO TID RF: 0 hydralazine 100 mg tablet 100 mg PO TID RF: 0 budesonide-formoterol [Symbicort] 160-4.5 mcg/actuation HFA aerosol inhaler 2 puff inhalation Q12H Qty: 10.2 RF: 1 Date of admission: 04/23/21 05:02 Primary Care Provider: Gavin Mansfield Admitting Provider: Michael Dailey V. Attending physician on admission: Nirali Whyte Condition: Improved Quality VTE Prophylaxis VTE prophylaxis: pharmacologic ordered
--- NOTE | 2021-04-28 11:25 | PM.PNCARD ---
Progress Note: A&P Assessment and Plan (1) Acute pericarditis: Code(s): I30.9 - Acute pericarditis, unspecified Status: Acute Assessment and Plan: EKG abnormality more prominent suggestive of pericarditis with diffuse ST elevations as well as NE depression in AVR. Echocardiogram reveals preserved LV systolic function normal EF, severe concentric LVH with large circumferential pericardial effusion without tamponade physiology. Chest discomfort remains highly atypical, worse with certain movement, position deep breathing but again much improved overall post thoracentesis. Continue with colchicine 0.6mg q72 hrs. Must not be continued any longer than 2 months to avoid toxicity risks. Will initially plan for 1 month with further recommendation to follow based on clinical status. Repeat EKG on 04/27/2021 at 1:37 a.m. showed NSR, diffuse anterior ST segment elevation, p.o. depression in lead 1, 2, left atrial enlargement, nonspecific T-wave changes. Okay for discharge. Told the patient and his that this problem needs follow-up. Reviewed signs and symptoms of pericardial tamponade. (2) Pericardial effusion: Code(s): I31.3 - Pericardial effusion (noninflammatory) Status: Acute Assessment and Plan: Large pericardial effusion circumferential chronic without tamponade physiology. Thoracentesis on 04/23. Precise etiology unclear possibly related to uremia and in light of changes concerning for pericarditis uremic pericarditis although patient is on hemodialysis. The patient has also been on minoxidil for a long time and this is likely a contributing factor. Recommend discontinuing minoxidil. Discussed w/ Dr. Whyte. Hydralazine can also be associated with a lupus-like reaction and can cause pericardial effusion. A financial operations clerk may be able to sort out the etiology better. Patient hemodynamically stable. Caution to avoid significant hypotension and or significant intravascular volume depletion. (3) Paroxysmal atrial fibrillation: Code(s): I48.0 - Paroxysmal atrial fibrillation Status: Acute Assessment and Plan: New diagnosis paroxysmal atrial fibrillation with rapid ventricular response, has converted to sinus rhythm. Maintaining NSR on metoprolol 100 mg b.i.d.. Started on Eliquis 2.5 mg b.i.d.. Reviewed treatment with patient and his (4) Elevated troponin level not due myocardial infarction: Code(s): R77.8 - Other specified abnormalities of plasma proteins Status: Acute Assessment and Plan: Flat curve not secondary to acute coronary syndrome and/or plaque rupture. Secondary to atrial fibrillation with RVR, end-stage renal disease on hemodialysis and uncontrolled hypertension. Possibly related to myopericarditis as well given EKG changes, pericardial effusion. (5) Atypical chest pain: Code(s): R07.89 - Other chest pain Status: Acute Assessment and Plan: As above. Atypical reproducible musculoskeletal chest pain worse with deep breathing, coughing and or movement much improved overall clinically. Colchicine, pain management. (6) Uncontrolled hypertension: Code(s): I10 - Essential (primary) hypertension Status: Acute Assessment and Plan: Continue antihypertensives. Monitor BP closely in addition to AV bridger blocking agents. Better controlled overall. (7) ESRD needing dialysis: Code(s): N18.6 - End stage renal disease; Z99.2 - Dependence on renal dialysis Status: Acute Assessment and Plan: Per nephrology. Undergoing hemodialysis currently. Volume management with hemodialysis. (8) Pleural effusion: Code(s): J90 - Pleural effusion, not elsewhere classified Status: Acute Assessment and Plan: Status post thoracentesis 400 mg. However, still hypoxic off O2. (9) COPD (chronic obstructive pulmonary disease): Qualifiers: COPD type: unspecified COPD Qualified Code(s):
[2021-04-28] MEDS: LACTULOSE 20 GM/30 ML UDC PO (12:14)
[2021-04-28] MEDS: DOXAZOSIN MESYLATE 2 MG TABLET PO (16:06)
[2021-04-28] MEDS: CYCLOBENZAPRINE HCL 10 MG TABLET PO (16:10)
[2021-04-29] VITALS (17 sets, daily range): BP systolic 96–116; BP diastolic 51–71; PULSE 82–101; RESP 14–22; TEMP 35.8–36.9; O2SAT 91–97
--- NOTE | 2021-04-29 03:06 | PC.NURSE ---
Daylight Savings Time For Daylight Savings Time Ending in the Fall - Clocks are moved back. For Daylight Savings Time Beginning in the Spring - Clocks are moved ahead. For [facility], the time of change occurs at 0200 hrs. Time is taken from the cafe server. This entry on the patient's chart recognizes the change in time reflected during documentation. Example: 2 entries for vital signs may be charted for 0200 hrs.
[2021-04-29 05:19] LABS: Hemoglobin 7.4 g/dL (14.0-18.0); Mean Corpuscular HGB Conc 30.8 g/dl (32-36); Mean Corpuscular Hemoglobin 28.8 pg (26-34); Mean Corpuscular Volume 93.4 fl (80-100); Mean Platelet Volume 10.2 fl (7.4-10.4); Platelet Count Result 485 k/mm3 (150-375); Red Blood Count 2.57 M/mm3 (4.6-6.20); Red Cell Distribution Width 18.6 % (11.5-14.5); White Blood Count 12.6 K/mm3 (4.5-10.0)
[2021-04-29 05:27] LABS: INR 1.9
[2021-04-29 05:29] LABS: Partial Thromboplastin Time 64.5 SECONDS (22.3-36.8)
[2021-04-29] MEDS: hydrALAZINE HCL 50 MG TABLET 100 MG PO ×2 (05:32→16:50)
[2021-04-29 05:51] LABS: Albumin Level 3.7 g/dL (3.5-5.1); Anion Gap 11 mmol/L (8-16); Blood Urea Nitrogen 48 mg/dL (9-20); Calcium 9.5 mg/dL (8.4-10.2); Carbon Dioxide 26 mmol/L (22-30); Chloride 102 mmol/L (98-107); Estimated CRCL calculation 9 ml/min; Estimated Glomerular Filt Rate 8; Glucose 90 mg/dL (65-110); Potassium 4.7 mmol/L (3.4-5.0); Sodium 139 mmol/L (137-145)
[2021-04-29] MEDS: DOXAZOSIN MESYLATE 2 MG TABLET PO (09:06)
[2021-04-29] MEDS: cloNIDine HCL 0.1 MG TABLET 0.3 MG PO (09:06)
[2021-04-29] MEDS: APIXABAN 2.5 MG TABLET PO (09:07)
[2021-04-29] MEDS: FLUTICASONE/SALMETEROL 115-21 MCG INHALER 1 PUFF 2 PUFF INHALATION ×2 (09:07→19:39)
[2021-04-29] MEDS: METOPROLOL TARTRATE 50 MG TAB 100 MG PO (09:08)
--- NOTE | 2021-04-29 10:11 | PM.IMPN ---
Progress Note: A&P Assessment and Plan (1) Acute pericarditis: Code(s): I30.9 - Acute pericarditis, unspecified Status: Acute (2) Pericardial effusion: Code(s): I31.3 - Pericardial effusion (noninflammatory) Status: Acute (3) Anemia: Code(s): D64.9 - Anemia, unspecified Status: Acute (4) Atrial fibrillation with RVR: Code(s): I48.91 - Unspecified atrial fibrillation Status: Acute (5) Elevated troponin level not due myocardial infarction: Code(s): R77.8 - Other specified abnormalities of plasma proteins Status: Acute (6) Atypical chest pain: Code(s): R07.89 - Other chest pain Status: Acute (7) Uncontrolled hypertension: Code(s): I10 - Essential (primary) hypertension Status: Acute (8) ESRD (end stage renal disease): Code(s): N18.6 - End stage renal disease Status: Acute (9) Seizures: Code(s): R56.9 - Unspecified convulsions Status: Acute (10) Tobacco abuse: Code(s): Z72.0 - Tobacco use Status: Acute (11) COPD (chronic obstructive pulmonary disease): Qualifiers: COPD type: unspecified COPD Qualified Code(s): J44.9 - Chronic obstructive pulmonary disease, unspecified Code(s): J44.9 - Chronic obstructive pulmonary disease, unspecified Status: Acute (12) Hypertension: Qualifiers: Hypertension type: renovascular hypertension Qualified Code(s): I15.0 - Renovascular hypertension Code(s): I10 - Essential (primary) hypertension Status: Acute Assessment and Plan: Patient is a 50-year-old male with history of end-stage renal disease on hemodialysis presented with complaint of chest pain across his chest last 2 3 days patient denies any injury to chest, the pain is reproducible upon by pressing on the chest, patient tropes are elevated most likely secondary to end-stage renal disease and demand ischemia due to pain unlikely ruptured plaque. there are no acute changes on EKG, patient was started on heparin, also upon arrival patient was in atrial fibrillation with RVR most likely new onset is patient does not have any rate limiting medication, patient was given metoprolol IV 5 mg that converted patient to sinus rhythm, chest x-ray showed cardiomegaly, patient stats he had cardiac ECHO 3 yrs ago at [facility], will do cardiac echo to recheck, he has had thoracentesis in the past, will order thoracentesis therapeutic, patient will be seen by design manager and further recommendation to follow, patient will have dialysis today, will continue to monitor. upon arrival patient had fever and elevated white count concerning for pneumonia started the patient on azithromycin and Rocephin, patient D-dimer is elevated V/Q scan intermediate probability for PE currently patient is on heparin, will do the lower extremity Doppler and further recommendation to follow. 04/24/21 remains on heparin gtt x probable PE and afib pericarditis on colchicine pericardial effusion stable without tamponade HD per nephro BP not at goal meds have been adjusted today by cardiology acute pain lidocaine patch for low back, morphine iv x breakthrough and Percocet PRN added to MAR elevated BP likely multifactorial rebound from clonidine and 2/2 to pain cont current care 04/25/21 BP near goal HD MWF pain improved remains on heparin gtt -> warfarin soon? 04/26/21 Metoprolol 50 t.i.d. Weaned from Cardizem drip when able Currently on heparin drip will transition OAC Continue pain medication Continue colchicine Continue hemodialysis per Nephro 04/27/21 Warfarin ordered dc heparin when fully anticoagulated HD tomorrow per Dr Lanier chest pain improving cont current care 04/28/21 Eliquis ordered instead of warfarin to improve compliance Patient refusing dialysis today Probable PE on imaging patient still requiring 2 L of oxygen via nasal cannula
[2021-04-29 10:21] LABS: Basophils Percent Auto 0.3 % (0.2-1.2); Eosinophils Absolute Auto 0.2 K/mm3 (0-0.3); Eosinophils Percent Auto 1.6 % (0-4.4); Immature Granulocyte Absolute 0.14 K/mm3 (0.00-0.031); Immature Granulocyte Percent A 1.1 % (0-0.5); Lymphocytes Absolute Auto 0.85 K/mm3 (0.9-3.2); Lymphocytes Percent Auto 6.6 % (18.3-44.2); Monocytes Absolute Auto 1.3 K/mm3 (0.1-0.6); Neutrophils Absolute Auto 10.4 K/mm3 (1.3-6.7); Neutrophils Percent Auto 80.4 % (45.5-73.1)
[2021-04-29 10:25] LABS: Alanine Aminotransferase 10 U/L (4-50); Albumin Level 3.5 g/dL (3.5-5.1); Alkaline Phosphatase 199 U/L (38-126); Anion Gap 8 mmol/L (8-16); Aspartate Amino Transferase 27 U/L (17-59); Bilirubin,Total 0.6 mg/dL (0.2-1.3); Blood Urea Nitrogen 48 mg/dL (9-20); Calcium 9.8 mg/dL (8.4-10.2); Carbon Dioxide 29 mmol/L (22-30); Chloride 103 mmol/L (98-107); Estimated CRCL calculation 9 ml/min; Estimated Glomerular Filt Rate 8; Glucose 93 mg/dL (65-110); Potassium 4.7 mmol/L (3.4-5.0); Sodium 140 mmol/L (137-145)
--- NOTE | 2021-04-29 11:04 | P.PNNP_ITS ---
Progress Note: A&P Assessment and Plan (1) End stage renal disease: Code(s): N18.6 - End stage renal disease Status: Chronic Assessment and Plan: * HD do tomorrow. * He does not want to do it today. * Cardiology wonders if the pleural effusion is from the minoxidil. * The patient wants to go home today. This is okay with renal. He can go to dialysis tomorrow. (2) Atrial fibrillation with RVR: Code(s): I48.91 - Unspecified atrial fibrillation Status: Acute Assessment and Plan: * presumably a new finding * continue rate control strategy as tolerated * continue anticoagulation * Echo results noted * large pericardial effusion -- due to minoxidil use versus poor dialysis (uremic pericarditis)?? * Will resume standard dialysis orders. (3) Acute pericarditis: Code(s): I30.9 - Acute pericarditis, unspecified Status: Acute Assessment and Plan: * suspected given evidence to date (Echo results, EKG findings...etc) * colchicine per Cardiology * Noxafil has been discontinued. (4) Pleural effusion: Code(s): J90 - Pleural effusion, not elsewhere classified Status: Acute Assessment and Plan: * as noted by CXR * s/p left thoracentesis (on 04/23/21) * follow-up on pleural fluid studies/cultures (5) Hypertension: Qualifiers: Hypertension type: renovascular hypertension Qualified Code(s): I15.0 - Renovascular hypertension Code(s): I10 - Essential (primary) hypertension Status: Acute Assessment and Plan: * suspect poorly controlled at baseline given that he is on multiple agents (clonidine, minoxidil, hydralazine...etc) * His blood pressure is better. Ranging between 120 and 140. * Minoxidil was discontinued as above. * He is currently on clonidine and hydralazine which were on board on admission. He is also on metoprolol And Cardura. Being on both clonidine and metoprolol risks rebound hypertension so we should wean 1 of or the other of those 2. Metoprolol is probably better for his heart. Will decrease clonidine 0.2 twice a day with the intention of weaning this is off down the line. (6) Anemia: Code(s): D64.9 - Anemia, unspecified Status: Acute Assessment and Plan: * due to ESRD * per outpatient HD unit, poor responder to Epogen therapy * Hemoglobin 7.3 today. * continue Epogen with dialysis Subjective Date/time seen: 04/29/21 11:04 Interval history: the patient was going to be discharged yesterday but ended up staying overnight. Today the patient sitting up in a chair. He is generally weak. He had cramps quite a bit on Friday and so refused dialysis yesterday and today. Breathing is okay. Exam Narrative: General: WD/WN AA male in NAD Heart: tachycardic, normal S1 and S2 I do not hear a rub Lungs: decreased breath sound At the bases Abdomen: soft, nontender, nondistended, positive bowel sounds Extremities: no cyanosis or clubbing; no edema Skin: no rash or subcu nodules Objective Data Vital Signs Vital Signs: Vital Signs - 24 hr 04/28/21 12:00 04/28/21 14:00 04/28/21 16:00 Temperature 36.1 C L 36.9 C Pulse Rate 91 90 91 Respiratory Rate 18 17 Blood Pressure 157/132 H 142/87 H Pulse Oximetry 93 95 Pulse Oximetry [With Activity During Therapy Session] 04/28/21 18:00 04/28/21 20:00
--- NOTE | 2021-04-29 11:04 | PM.PNNEP ---
Progress Note: A&P Assessment and Plan (1) End stage renal disease: Code(s): N18.6 - End stage renal disease Status: Chronic Assessment and Plan: HD do tomorrow. He does not want to do it today. Cardiology wonders if the pleural effusion is from the minoxidil. The patient wants to go home today. This is okay with renal. He can go to dialysis tomorrow. (2) Atrial fibrillation with RVR: Code(s): I48.91 - Unspecified atrial fibrillation Status: Acute Assessment and Plan: presumably a new finding continue rate control strategy as tolerated continue anticoagulation Echo results noted large pericardial effusion -- due to minoxidil use versus poor dialysis (uremic pericarditis)?? Will resume standard dialysis orders. (3) Acute pericarditis: Code(s): I30.9 - Acute pericarditis, unspecified Status: Acute Assessment and Plan: suspected given evidence to date (Echo results, EKG findings...etc) colchicine per Cardiology Noxafil has been discontinued. (4) Pleural effusion: Code(s): J90 - Pleural effusion, not elsewhere classified Status: Acute Assessment and Plan: as noted by CXR s/p left thoracentesis (on 04/23/21) follow-up on pleural fluid studies/cultures (5) Hypertension: Qualifiers: Hypertension type: renovascular hypertension Qualified Code(s): I15.0 - Renovascular hypertension Code(s): I10 - Essential (primary) hypertension Status: Acute Assessment and Plan: suspect poorly controlled at baseline given that he is on multiple agents (clonidine, minoxidil, hydralazine...etc) His blood pressure is better. Ranging between 120 and 140. Minoxidil was discontinued as above. He is currently on clonidine and hydralazine which were on board on admission. He is also on metoprolol And Cardura. Being on both clonidine and metoprolol risks rebound hypertension so we should wean 1 of or the other of those 2. Metoprolol is probably better for his heart. Will decrease clonidine 0.2 twice a day with the intention of weaning this is off down the line. (6) Anemia: Code(s): D64.9 - Anemia, unspecified Status: Acute Assessment and Plan: due to ESRD per outpatient HD unit, poor responder to Epogen therapy Hemoglobin 7.3 today. continue Epogen with dialysis Subjective Date/time seen: 04/29/21 11:04 Interval history: the patient was going to be discharged yesterday but ended up staying overnight. Today the patient sitting up in a chair. He is generally weak. He had cramps quite a bit on Friday and so refused dialysis yesterday and today. Breathing is okay. Exam Narrative: General: WD/WN AA male in NAD Heart: tachycardic, normal S1 and S2 I do not hear a rub Lungs: decreased breath sound At the bases Abdomen: soft, nontender, nondistended, positive bowel sounds Extremities: no cyanosis or clubbing; no edema Skin: no rash or subcu nodules Objective Data Vital Signs Vital Signs: Vital Signs - 24 hr 04/28/21 12:00 04/28/21 14:00 04/28/21 16:00 Temperature 36.1 C L 36.9 C Pulse Rate 91 90 91 Respiratory Rate 18 17 Blood Pressure 157/132 H 142/87 H Pulse Oximetry 93 95 Pulse Oximetry [With Activity During Therapy Session] 04/28/21 18:00 04/28/21 20:00 04/28/21 20:58 Temperature 36.0 C L Pulse Rate 92 91 98 Respiratory Rate 16 22 H Blood Pressure 120/78 Pulse Oximetry 91 Pulse Oximetry [With Activity During Therapy Session] 04/28/21 21:15 04/28/21 21:16 04/28/21 22:00 Temperature Pulse Rate 94 94 91 Respiratory Rate 26 H 26 H Blood Pressure Pulse Oximetry 94 Pulse Oximetry [With Activity During Therapy Session] 04/28/21 23:48 04/29/21 00:00 04/29/21 03:00 Temperature 37.2 C Pulse Rate 93 90 86 Respiratory Rate 22 H Blood Pressure 121/59 L Pulse Oximetry 92 97 Pulse Oximetry
--- NOTE | 2021-04-29 13:54 | PC.NURSE ---
Patient blood pressure 97/52 rechecked blood pressure 97/56 map 65. holding hydralazine and Catapres. Called Dr. Whyte to notify her. Left message.
--- NOTE | 2021-04-29 13:58 | PM.PNCARD ---
Progress Note: A&P Assessment and Plan (1) Acute pericarditis: Code(s): I30.9 - Acute pericarditis, unspecified Status: Acute Assessment and Plan: Chest pain secondary to acute pericarditis has resolved. Continue with colchicine 0.6mg q72 hrs. Must not be continued any longer than 2 months to avoid toxicity risks. Will initially plan for 1 month with further recommendation to follow based on clinical status. Told the patient and his that this problem needs follow-up. Reviewed signs and symptoms of pericardial tamponade. (2) Pericardial effusion: Code(s): I31.3 - Pericardial effusion (noninflammatory) Status: Acute Assessment and Plan: Large pericardial effusion circumferential chronic without tamponade physiology. Also has pleural effusion status post thoracentesis on 04/23/2021. There has been worsening of this left effusion, associated with hypoxia on room air. May be a uremic pleuro- pericarditis although patient is on hemodialysis. He apparently has missed some dialysis? The patient has also been on minoxidil for a long time and this is likely a contributing factor. Minoxidil has been discontinued. Hydralazine can also be associated with a lupus-like reaction and can cause pericardial effusion. A home coordinator may be able to sort out the etiology better. Will check a sed rate, rheumatoid factor and [place]. D-dimer was somewhat elevated on admission. Patient hemodynamically stable. Caution to avoid significant hypotension and or significant intravascular volume depletion. (3) Paroxysmal atrial fibrillation: Code(s): I48.0 - Paroxysmal atrial fibrillation Status: Acute Assessment and Plan: New diagnosis paroxysmal atrial fibrillation with rapid ventricular response, has converted to sinus rhythm. Maintaining NSR on metoprolol 100 mg b.i.d.. Started on Eliquis 2.5 mg b.i.d..--held for thoracentesis. (4) Elevated troponin level not due myocardial infarction: Code(s): R77.8 - Other specified abnormalities of plasma proteins Status: Acute Assessment and Plan: Flat curve not secondary to acute coronary syndrome and/or plaque rupture. Secondary to atrial fibrillation with RVR, end-stage renal disease on hemodialysis and uncontrolled hypertension. Possibly related to myopericarditis as well given EKG changes, pericardial effusion. (5) Atypical chest pain: Code(s): R07.89 - Other chest pain Status: Acute Assessment and Plan: Secondary to pericarditis, improved/resolved. (6) Uncontrolled hypertension: Code(s): I10 - Essential (primary) hypertension Status: Acute Assessment and Plan: Continue antihypertensives. Monitor BP closely in addition to AV bridger blocking agents. Better controlled overall. (7) ESRD needing dialysis: Code(s): N18.6 - End stage renal disease; Z99.2 - Dependence on renal dialysis Status: Acute Assessment and Plan: Per nephrology. (8) Pleural effusion: Code(s): J90 - Pleural effusion, not elsewhere classified Status: Acute Assessment and Plan: Status post thoracentesis 400 mg. However, still hypoxic off O2. Getting another thoracentesis tomorrow. (9) COPD (chronic obstructive pulmonary disease): Qualifiers: COPD type: unspecified COPD Qualified Code(s): J44.9 - Chronic obstructive pulmonary disease, unspecified Code(s): J44.9 - Chronic obstructive pulmonary disease, unspecified Status: Acute Assessment and Plan: Per primary service. Subjective Date/time seen: 04/29/21 13:58 Interval history: Follow-up for pericarditis with a large pericardial effusion, atrial fibrillation with rapid ventricular response, which has converted to sinus rhythm. Had left-sided thoracentesis on 04/23/2021 with removal of 400 cc of fluids. Started on colchicine for pleuropericarditis. 04/27/2021: Patient niyah
--- NOTE | 2021-04-29 16:56 | PC.NURSE ---
Dr Whyte ordered Catapres to be ordered BID. Give Hydralazine.
[2021-04-29] MEDS: HEPARIN SOD/D5W 100 UNITS/ML 25,000 UNITS/250 ML BAG 12 UNITS IV CONT (20:15)
[2021-04-30] VITALS (30 sets, daily range): BP systolic 99–161; BP diastolic 60–83; PULSE 76–136; RESP 18–20; TEMP 35.8–37.1; O2SAT 87–100
[2021-04-30 02:19] LABS: Partial Thromboplastin Time 59.9 SECONDS (22.3-36.8)
[2021-04-30] MEDS: HEPARIN SODIUM 5,000 UNITS/ML VIAL 2500 UNITS IV PUSH (02:39)
[2021-04-30 05:01] LABS: Basophils Percent Auto 0.1 % (0.2-1.2); Eosinophils Absolute Auto 0.2 K/mm3 (0-0.3); Eosinophils Percent Auto 1.7 % (0-4.4); Hematocrit 25.5 % (42.0-52.0); Hemoglobin 8.2 g/dL (14.0-18.0); Immature Granulocyte Absolute 0.11 K/mm3 (0.00-0.031); Immature Granulocyte Percent A 0.8 % (0-0.5); Lymphocytes Absolute Auto 0.76 K/mm3 (0.9-3.2); Lymphocytes Percent Auto 5.4 % (18.3-44.2); Mean Corpuscular HGB Conc 32.2 g/dl (32-36); Mean Corpuscular Hemoglobin 28.5 pg (26-34); Mean Corpuscular Volume 88.5 fl (80-100); Mean Platelet Volume 9.9 fl (7.4-10.4); Monocytes Absolute Auto 1.4 K/mm3 (0.1-0.6); Monocytes Percent Auto 10.1 % (2.6-8.5); Neutrophils Absolute Auto 11.5 K/mm3 (1.3-6.7); Neutrophils Percent Auto 81.9 % (45.5-73.1); Platelet Count Result 618 k/mm3 (150-375); Red Blood Count 2.88 M/mm3 (4.6-6.20); Red Cell Distribution Width 18.2 % (11.5-14.5)
[2021-04-30 05:11] LABS: INR 1.5; Prothrombin Time 17.8 Seconds (11.1-14.7)
[2021-04-30 05:12] LABS: Partial Thromboplastin Time 50.5 SECONDS (22.3-36.8)
[2021-04-30 05:16] LABS: Rheumatoid Factor 14.2 IU/ML (<12)
[2021-04-30 05:20] LABS: Albumin Level 4.1 g/dL (3.5-5.1); Anion Gap 16 mmol/L (8-16); Blood Urea Nitrogen 63 mg/dL (9-20); Calcium 9.8 mg/dL (8.4-10.2); Carbon Dioxide 24 mmol/L (22-30); Chloride 101 mmol/L (98-107); Estimated CRCL calculation 7 ml/min; Estimated Glomerular Filt Rate 6; Glucose 114 mg/dL (65-110); Phosphorus 8.5 mg/dL (2.5-4.5); Potassium 4.8 mmol/L (3.4-5.0); Sodium 141 mmol/L (137-145)
--- NOTE | 2021-04-30 06:32 | PC.NURSE ---
06:15 After two instances of IV leaking during inflation of blood pressure cuff, patient requested discontinuation of current IV. Patient was advised that another IV would need to be placed. He is agreeable to this. Will attempt placement of new IV.
[2021-04-30] MEDS: hydrALAZINE HCL 50 MG TABLET 100 MG PO ×2 (06:57→21:04)
[2021-04-30] MEDS: FLUTICASONE/SALMETEROL 115-21 MCG INHALER 1 PUFF 2 PUFF INHALATION ×2 (08:56→20:44)
[2021-04-30 09:04] LABS: Erythrocyte Sedimentation Rate > 140 mm/hr (0-20)
[2021-04-30] MEDS: LACTULOSE 20 GM/30 ML UDC PO (09:05)
[2021-04-30] MEDS: LIDOCAINE 5% PATCH 1 PATCH TRANSDERM (09:05)
[2021-04-30] MEDS: COLCHICINE 0.6 MG TABLET PO (09:06)
[2021-04-30] MEDS: METOPROLOL TARTRATE 50 MG TAB 100 MG PO ×2 (09:06→21:04)
[2021-04-30] MEDS: DOXAZOSIN MESYLATE 2 MG TABLET PO (09:06)
[2021-04-30] MEDS: oxyCODONE/ACETAMINOPHEN (*CRX) 5-325 MG TABLET 1 TABLET PO (09:17)
--- NOTE | 2021-04-30 09:31 | P.PNNP_ITS ---
Progress Note: A&P Assessment and Plan (1) End stage renal disease: Code(s): N18.6 - End stage renal disease Status: Chronic Assessment and Plan: * HD later today. * Cardiology wonders if the pleural and pericardial effusions are from the minoxidil. * his potassium is okay. Volume status looks okay but will take some fluid off. (2) Atrial fibrillation with RVR: Code(s): I48.91 - Unspecified atrial fibrillation Status: Acute Assessment and Plan: * presumably a new finding * continue rate control strategy as tolerated * continue anticoagulation * Echo results noted * large pericardial effusion -- due to minoxidil use versus poor dialysis (uremic pericarditis)?? (3) Acute pericarditis: Code(s): I30.9 - Acute pericarditis, unspecified Status: Acute Assessment and Plan: * suspected given evidence to date (Echo results, EKG findings...etc) * colchicine per Cardiology * Noxafil has been discontinued. (4) Pleural effusion: Code(s): J90 - Pleural effusion, not elsewhere classified Status: Acute Assessment and Plan: * as noted by CXR * s/p left thoracentesis (on 04/23/21) * follow-up on pleural fluid studies/cultures (5) Hypertension: Qualifiers: Hypertension type: renovascular hypertension Qualified Code(s): I15.0 - Renovascular hypertension Code(s): I10 - Essential (primary) hypertension Status: Acute Assessment and Plan: * suspect poorly controlled at baseline given that he is on multiple agents (clonidine, minoxidil, hydralazine...etc) * Blood pressure is doing better. Will continue to wean the clonidine. (6) Anemia: Code(s): D64.9 - Anemia, unspecified Status: Acute Assessment and Plan: * due to ESRD * per outpatient HD unit, poor responder to Epogen therapy * Hemoglobin 7.3 today. * continue Epogen with dialysis Subjective Date/time seen: 04/30/21 09:31 Interval history: the patient was going to be discharged yesterday but ended up staying overnight. Today the patient sitting up in a chair. His oxygen is off because he is taking a break . Breathing is okay. Exam Narrative: General: WD/WN AA male in NAD Heart: tachycardic, normal S1 and S2 2/6 systolic ejection murmur Lungs: Decreased breath sounds at the bases Abdomen: soft, nontender, nondistended, positive bowel sounds Extremities: no cyanosis or clubbing; no edema Skin: no rash Objective Data Vital Signs Vital Signs: Vital Signs - 24 hr 04/29/21 09:56 04/29/21 10:00 04/29/21 12:00 Temperature 36.9 C Pulse Rate 88 82 Respiratory Rate 14 Blood Pressure 97/52 L Pulse Oximetry 95 Pulse Oximetry [With Activity During Therapy Session] 91 04/29/21 13:47 04/29/21 14:00 04/29/21 16:00 Temperature 36.9 C Pulse Rate 84 84 Respiratory Rate 22 H Blood Pressure 97/56 L 109/68 Pulse Oximetry 95 Pulse Oximetry [With Activity During Therapy Session] 93 04/29/21 18:00 04/29/21 18:37 04/29/21 19:45 Temperature Pulse Rate 87 90 Respiratory Rate 22 H Blood Pressure 96/51 L Pulse Oximetry 97 Pulse Oximetry [With Activity During Therapy Session]
--- NOTE | 2021-04-30 09:31 | PM.PNNEP ---
Progress Note: A&P Assessment and Plan (1) End stage renal disease: Code(s): N18.6 - End stage renal disease Status: Chronic Assessment and Plan: HD later today. Cardiology wonders if the pleural and pericardial effusions are from the minoxidil. his potassium is okay. Volume status looks okay but will take some fluid off. (2) Atrial fibrillation with RVR: Code(s): I48.91 - Unspecified atrial fibrillation Status: Acute Assessment and Plan: presumably a new finding continue rate control strategy as tolerated continue anticoagulation Echo results noted large pericardial effusion -- due to minoxidil use versus poor dialysis (uremic pericarditis)?? (3) Acute pericarditis: Code(s): I30.9 - Acute pericarditis, unspecified Status: Acute Assessment and Plan: suspected given evidence to date (Echo results, EKG findings...etc) colchicine per Cardiology Noxafil has been discontinued. (4) Pleural effusion: Code(s): J90 - Pleural effusion, not elsewhere classified Status: Acute Assessment and Plan: as noted by CXR s/p left thoracentesis (on 04/23/21) follow-up on pleural fluid studies/cultures (5) Hypertension: Qualifiers: Hypertension type: renovascular hypertension Qualified Code(s): I15.0 - Renovascular hypertension Code(s): I10 - Essential (primary) hypertension Status: Acute Assessment and Plan: suspect poorly controlled at baseline given that he is on multiple agents (clonidine, minoxidil, hydralazine...etc) Blood pressure is doing better. Will continue to wean the clonidine. (6) Anemia: Code(s): D64.9 - Anemia, unspecified Status: Acute Assessment and Plan: due to ESRD per outpatient HD unit, poor responder to Epogen therapy Hemoglobin 7.3 today. continue Epogen with dialysis Subjective Date/time seen: 04/30/21 09:31 Interval history: the patient was going to be discharged yesterday but ended up staying overnight. Today the patient sitting up in a chair. His oxygen is off because he is taking a break . Breathing is okay. Exam Narrative: General: WD/WN AA male in NAD Heart: tachycardic, normal S1 and S2 2/6 systolic ejection murmur Lungs: Decreased breath sounds at the bases Abdomen: soft, nontender, nondistended, positive bowel sounds Extremities: no cyanosis or clubbing; no edema Skin: no rash Objective Data Vital Signs Vital Signs: Vital Signs - 24 hr 04/29/21 09:56 04/29/21 10:00 04/29/21 12:00 Temperature 36.9 C Pulse Rate 88 82 Respiratory Rate 14 Blood Pressure 97/52 L Pulse Oximetry 95 Pulse Oximetry [With Activity During Therapy Session] 91 04/29/21 13:47 04/29/21 14:00 04/29/21 16:00 Temperature 36.9 C Pulse Rate 84 84 Respiratory Rate 22 H Blood Pressure 97/56 L 109/68 Pulse Oximetry 95 Pulse Oximetry [With Activity During Therapy Session] 93 04/29/21 18:00 04/29/21 18:37 04/29/21 19:45 Temperature Pulse Rate 87 90 Respiratory Rate 22 H Blood Pressure 96/51 L Pulse Oximetry 97 Pulse Oximetry [With Activity During Therapy Session] 04/29/21 20:00 04/29/21 22:00 04/30/21 00:00 Temperature 35.8 C L 35.8 C L Pulse Rate 89 92 89 Respiratory Rate 18 18 Blood Pressure 116/65 118/70 Pulse Oximetry 94 97 Pulse Oximetry [With Activity During Therapy Session] 04/30/21 02:00 04/30/21 04:00 04/30/21 06:00 Temperature 36.1 C L Pulse Rate 95 95 95 Respiratory Rate 18 Blood Pressure 138/82 Pulse Oximetry 98 Pulse Oximetry [With Activity During Therapy Session] 04/30/21 08:00 04/30/21 08:59 04/30/21 09:06 Temperature 37.1 C Pulse Rate 94 96 Respiratory Rate 20 Blood Pressure 125/69 Pulse Oximetry 91 94 Pulse Oximetry [With Activity During Therapy Session] Intake/Output Intake/Output: Intake & Output 04/27/21
--- NOTE | 2021-04-30 12:10 | PM.PNCARD ---
Progress Note: A&P Assessment and Plan (1) Acute pericarditis: Code(s): I30.9 - Acute pericarditis, unspecified Status: Acute Assessment and Plan: Chest pain secondary to acute pericarditis has resolved. Continue with colchicine 0.6mg q72 hrs. Must not be continued any longer than 2 months to avoid toxicity risks. Will initially plan for 1 month with further recommendation to follow based on clinical status. Reviewed signs and symptoms of pericardial tamponade. Outpatient follow up in ~1 month (2) Pericardial effusion: Code(s): I31.3 - Pericardial effusion (noninflammatory) Status: Acute Assessment and Plan: Large pericardial effusion circumferential chronic without tamponade physiology. Also has pleural effusion status post thoracentesis on 04/23/2021. There has been worsening of this left effusion, associated with hypoxia on room air. May be a uremic pleuro- pericarditis although patient is on hemodialysis. He apparently has missed some dialysis? The patient has also been on minoxidil for a long time and this is likely a contributing factor. Minoxidil has been discontinued. Hydralazine can also be associated with a lupus-like reaction and can cause pericardial effusion. A ore miner may be able to sort out the etiology better. Will check a sed rate, rheumatoid factor and ANDRIA. D-dimer was somewhat elevated on admission. Patient hemodynamically stable. Caution to avoid significant hypotension and or significant intravascular volume depletion. (3) Paroxysmal atrial fibrillation: Code(s): I48.0 - Paroxysmal atrial fibrillation Status: Acute Assessment and Plan: New diagnosis paroxysmal atrial fibrillation with rapid ventricular response, has converted to sinus rhythm. Maintaining NSR on metoprolol 100 mg b.i.d.. Started on Eliquis 2.5 mg b.i.d.. (4) Elevated troponin level not due myocardial infarction: Code(s): R77.8 - Other specified abnormalities of plasma proteins Status: Acute Assessment and Plan: Flat curve not secondary to acute coronary syndrome and/or plaque rupture. Secondary to atrial fibrillation with RVR, end-stage renal disease on hemodialysis and uncontrolled hypertension. Possibly related to myopericarditis as well given EKG changes, pericardial effusion. (5) Atypical chest pain: Code(s): R07.89 - Other chest pain Status: Acute Assessment and Plan: Secondary to pericarditis, improved/resolved. (6) Uncontrolled hypertension: Code(s): I10 - Essential (primary) hypertension Status: Acute Assessment and Plan: Continue antihypertensives. Monitor BP closely in addition to AV bridger blocking agents. Better controlled overall. (7) ESRD needing dialysis: Code(s): N18.6 - End stage renal disease; Z99.2 - Dependence on renal dialysis Status: Acute Assessment and Plan: Per nephrology. (8) Pleural effusion: Code(s): J90 - Pleural effusion, not elsewhere classified Status: Acute Assessment and Plan: Status post thoracentesis. O2 sats stable on room air today. Plan for repeat thoracentesis this afternoon. Eliquis to be restarted after this procedure. (9) COPD (chronic obstructive pulmonary disease): Qualifiers: COPD type: unspecified COPD Qualified Code(s): J44.9 - Chronic obstructive pulmonary disease, unspecified Code(s): J44.9 - Chronic obstructive pulmonary disease, unspecified Status: Acute Assessment and Plan: Per primary service. Subjective Date/time seen: 04/30/21 12:10 Interval history: Follow-up for pericarditis with a large pericardial effusion, atrial fibrillation with rapid ventricular response, which has converted to sinus rhythm. Had left-sided thoracentesis on 04/23/2021 with removal of 400 cc of fluids. Started on colchicine for pleuropericarditis. 04/27/2021: Patient feeling
--- NOTE | 2021-04-30 13:50 | PC.NURSE ---
Pt to US for thoracentesis via stretcher.
--- NOTE | 2021-04-30 14:33 | PC.NURSE ---
Pt returned from thoracentesis. 300 cc of fluid removed.
--- NOTE | 2021-04-30 14:35 | PC.NURSE ---
Pt to dialysis via bed
--- NOTE | 2021-04-30 16:18 | PC.NURSE ---
This RN called galley cook to check on patient. Pt noted to be cramping, this RN notified galley cook of pt now in Afib. galley cook stated I'll give him some fluids and try to convert him back. Call me back in a few minutes and let me know what his rhythm is.
--- NOTE | 2021-04-30 16:38 | PC.NURSE ---
assistance specialist notified that patient still in Afib. assistance specialist notified this RN that patient is cramping and not able to tolerate dialysis anymore. assistance specialist will return blood to patient and end dialysis treatment.
--- NOTE | 2021-04-30 16:45 | PC.NURSE ---
Dr. Whyte notified of patient back in Afib with rate of 120-130. New order to give 5mg IVP Lopressor x1. Update Dr Whyte 35 minutes after administration of IVP Lopressor.
--- NOTE | 2021-04-30 16:48 | P.PNIM_ITS ---
Progress Note: A&P Assessment and Plan (1) Acute pericarditis: Code(s): I30.9 - Acute pericarditis, unspecified Status: Acute (2) Pericardial effusion: Code(s): I31.3 - Pericardial effusion (noninflammatory) Status: Acute (3) Anemia: Code(s): D64.9 - Anemia, unspecified Status: Acute (4) Atrial fibrillation with RVR: Code(s): I48.91 - Unspecified atrial fibrillation Status: Acute (5) Elevated troponin level not due myocardial infarction: Code(s): R77.8 - Other specified abnormalities of plasma proteins Status: Acute (6) Atypical chest pain: Code(s): R07.89 - Other chest pain Status: Acute (7) Uncontrolled hypertension: Code(s): I10 - Essential (primary) hypertension Status: Acute (8) ESRD (end stage renal disease): Code(s): N18.6 - End stage renal disease Status: Acute (9) Seizures: Code(s): R56.9 - Unspecified convulsions Status: Acute (10) Tobacco abuse: Code(s): Z72.0 - Tobacco use Status: Acute (11) COPD (chronic obstructive pulmonary disease): Qualifiers: COPD type: unspecified COPD Qualified Code(s): J44.9 - Chronic obstructive pulmonary disease, unspecified Code(s): J44.9 - Chronic obstructive pulmonary disease, unspecified Status: Acute (12) Hypertension: Qualifiers: Hypertension type: renovascular hypertension Qualified Code(s): I15.0 - Renovascular hypertension Code(s): I10 - Essential (primary) hypertension Status: Acute Assessment and Plan: Patient is a 50-year-old male with history of end-stage renal disease on hemodialysis presented with complaint of chest pain across his chest last 2 3 days patient denies any injury to chest, the pain is reproducible upon by pressing on the chest, patient tropes are elevated most likely secondary to end-stage renal disease and demand ischemia due to pain unlikely ruptured plaque. there are no acute changes on EKG, patient was started on heparin, also upon arrival patient was in atrial fibrillation with RVR most likely new onset is patient does not have any rate limiting medication, patient was given metoprolol IV 5 mg that converted patient to sinus rhythm, chest x-ray showed cardiomegaly, patient stats he had cardiac ECHO 3 yrs ago at [facility], will do cardiac echo to recheck, he has had thoracentesis in the past, will order thoracentesis therapeutic, patient will be seen by hotel or motel room service supervisor and further recommendation to follow, patient will have dialysis today, will continue to monitor. upon arrival patient had fever and elevated white count concerning for pneumonia started the patient on azithromycin and Rocephin, patient D-dimer is elevated V/Q scan intermediate probability for PE currently patient is on heparin, will do the lower extremity Doppler and further recommendation to follow. 04/24/21 remains on heparin gtt x probable PE and afib pericarditis on colchicine pericardial effusion stable without tamponade HD per nephro BP not at goal meds have been adjusted today by cardiology acute pain lidocaine patch for low back, morphine iv x breakthrough and Percocet PRN added to MAR elevated BP likely multifactorial rebound from clonidine and 2/2 to pain cont current care 04/25/21 BP near goal HD MWF pain improved remains on heparin gtt -> warfarin soon? 04/26/21 Metoprolol 50 t.i.d. Weaned from Cardizem drip when able Currently on heparin drip will transition OAC Continue pain medication
[2021-04-30] MEDS: METOPROLOL TARTRATE INJ 5 MG/5 ML VIAL IV PUSH (16:50)
--- NOTE | 2021-04-30 17:14 | PC.NURSE ---
Pt returned from dialysis via bed.
[2021-04-30] MEDS: APIXABAN 2.5 MG TABLET PO (17:23)
[2021-04-30] MEDS: cloNIDine HCL 0.2 MG TABLET PO (17:23)
[2021-04-30] MEDS: CYCLOBENZAPRINE HCL 10 MG TABLET PO (17:25)
--- NOTE | 2021-04-30 17:26 | PC.NURSE ---
Notified Dr. Whyte that patient is still in Afib with heart rate 1 teens to 120's after giving 5mg IVP Lopressor. New order to hold discharge and administer scheduled Catapress. Will re-evaluate in the morning. Cardiology aware of situation
--- NOTE | 2021-04-30 20:40 | PC.NURSE ---
Patient's sister called. Updated. Said she will visit tomorrow.
--- NOTE | 2021-04-30 20:47 | PC.NURSE ---
Patient's called. Updated. Requested to be able to talk to doctor tomorrow when she visits.
[2021-05-01] VITALS (12 sets, daily range): BP systolic 103–132; BP diastolic 58–75; PULSE 88–140; RESP 12–20; TEMP 36.3–37.1; O2SAT 92–100
[2021-05-01 05:09] LABS: Hematocrit 24.7 % (42.0-52.0); Mean Corpuscular HGB Conc 32.4 g/dl (32-36); Mean Corpuscular Hemoglobin 28.3 pg (26-34); Mean Corpuscular Volume 87.3 fl (80-100); Mean Platelet Volume 10.1 fl (7.4-10.4); Platelet Count Result 653 k/mm3 (150-375); Red Blood Count 2.83 M/mm3 (4.6-6.20); Red Cell Distribution Width 18.2 % (11.5-14.5); White Blood Count 13.6 K/mm3 (4.5-10.0)
[2021-05-01 05:16] LABS: INR 1.8
[2021-05-01 05:18] LABS: Albumin Level 4.1 g/dL (3.5-5.1); Anion Gap 13 mmol/L (8-16); Blood Urea Nitrogen 54 mg/dL (9-20); Calcium 9.7 mg/dL (8.4-10.2); Carbon Dioxide 29 mmol/L (22-30); Chloride 99 mmol/L (98-107); Estimated CRCL calculation 11 ml/min; Estimated Glomerular Filt Rate 7; Glucose 101 mg/dL (65-110); Phosphorus 7.2 mg/dL (2.5-4.5); Potassium 4.8 mmol/L (3.4-5.0); Sodium 141 mmol/L (137-145)
[2021-05-01] MEDS: hydrALAZINE HCL 50 MG TABLET 100 MG PO (06:14)
--- NOTE | 2021-05-01 08:07 | P.PNNP_ITS ---
Progress Note: A&P Assessment and Plan (1) End stage renal disease: Code(s): N18.6 - End stage renal disease Status: Chronic Assessment and Plan: * HD due tomorrow. * Cardiology wonders if the pleural and pericardial effusions are from the minoxidil. * his potassium is okay. Volume status looks okay but will take some fluid off. (2) Atrial fibrillation with RVR: Code(s): I48.91 - Unspecified atrial fibrillation Status: Acute Assessment and Plan: * presumably a new finding * continue rate control strategy as tolerated * continue anticoagulation * Echo results noted * large pericardial effusion -- due to minoxidil use versus poor dialysis (uremic pericarditis)?? * He had 5 dialysis treatments in a row. Then refused over the weekend. He had another treatment yesterday and refuses extra treatments. * He is well dialyzed though. (3) Acute pericarditis: Code(s): I30.9 - Acute pericarditis, unspecified Status: Acute Assessment and Plan: * suspected given evidence to date (Echo results, EKG findings...etc) * Off minoxidil. * He had frequent dialysis last week. * getting Colchicine per Cardiology * (4) Pleural effusion: Code(s): J90 - Pleural effusion, not elsewhere classified Status: Acute Assessment and Plan: * as noted by CXR * s/p left thoracentesis (on 04/23/21 and yesterday) * Only 79 white cells on the 1st reading. * Cultures negative. (5) Hypertension: Qualifiers: Hypertension type: renovascular hypertension Qualified Code(s): I15.0 - Renovascular hypertension Code(s): I10 - Essential (primary) hypertension Status: Acute Assessment and Plan: * suspect poorly controlled at baseline given that he is on multiple agents (clonidine, minoxidil, hydralazine...etc) * Blood pressure is doing better. Will continue to wean the clonidine. (6) Anemia: Code(s): D64.9 - Anemia, unspecified Status: Acute Assessment and Plan: * due to ESRD * per outpatient HD unit, poor responder to Epogen therapy * Hemoglobin 7.3 today. * continue Epogen with dialysis Subjective Date/time seen: 05/01/21 08:07 Interval history: The patient is lying in bed. Asking when he is going to go home. He developed rapid ventricular rate yesterday afternoon and so his discharge was held. He had dialysis yesterday. Exam Narrative: General: WD/WN AA male in NAD Heart: Irregular regular rhythm. Rate is around 100. 2/6 systolic ejection murmur and today I hear a two component rub I believe, but it is hard to tell because his rate is rather fast and his rhythm is so irregular. Lungs: Decreased breath sounds at the bases Abdomen: soft, nontender, nondistended, positive bowel sounds Extremities: no cyanosis or clubbing; no edema Skin: no rash Objective Data Vital Signs Vital Signs: Vital Signs - 24 hr 04/30/21 08:59 04/30/21 09:06 04/30/21 10:00 Temperature Pulse Rate 96 98 Respiratory Rate Blood Pressure Pulse Oximetry 94 04/30/21 12:00 04/30/21 13:58 04/30/21 14:00 Temperature 37.1 C Pulse Rate 91 89 89 Respiratory Rate 20 18 Blood Pressure 126/71 147/81 H Pulse Oximetry 100 87 L 04/30/21 14:21 04/30/21 15:00
--- NOTE | 2021-05-01 08:07 | PM.PNNEP ---
Progress Note: A&P Assessment and Plan (1) End stage renal disease: Code(s): N18.6 - End stage renal disease Status: Chronic Assessment and Plan: HD due tomorrow. Cardiology wonders if the pleural and pericardial effusions are from the minoxidil. his potassium is okay. Volume status looks okay but will take some fluid off. (2) Atrial fibrillation with RVR: Code(s): I48.91 - Unspecified atrial fibrillation Status: Acute Assessment and Plan: presumably a new finding continue rate control strategy as tolerated continue anticoagulation Echo results noted large pericardial effusion -- due to minoxidil use versus poor dialysis (uremic pericarditis)?? He had 5 dialysis treatments in a row. Then refused over the weekend. He had another treatment yesterday and refuses extra treatments. He is well dialyzed though. (3) Acute pericarditis: Code(s): I30.9 - Acute pericarditis, unspecified Status: Acute Assessment and Plan: suspected given evidence to date (Echo results, EKG findings...etc) Off minoxidil. He had frequent dialysis last week. getting Colchicine per Cardiology (4) Pleural effusion: Code(s): J90 - Pleural effusion, not elsewhere classified Status: Acute Assessment and Plan: as noted by CXR s/p left thoracentesis (on 04/23/21 and yesterday) Only 79 white cells on the 1st reading. Cultures negative. (5) Hypertension: Qualifiers: Hypertension type: renovascular hypertension Qualified Code(s): I15.0 - Renovascular hypertension Code(s): I10 - Essential (primary) hypertension Status: Acute Assessment and Plan: suspect poorly controlled at baseline given that he is on multiple agents (clonidine, minoxidil, hydralazine...etc) Blood pressure is doing better. Will continue to wean the clonidine. (6) Anemia: Code(s): D64.9 - Anemia, unspecified Status: Acute Assessment and Plan: due to ESRD per outpatient HD unit, poor responder to Epogen therapy Hemoglobin 7.3 today. continue Epogen with dialysis Subjective Date/time seen: 05/01/21 08:07 Interval history: The patient is lying in bed. Asking when he is going to go home. He developed rapid ventricular rate yesterday afternoon and so his discharge was held. He had dialysis yesterday. Exam Narrative: General: WD/WN AA male in NAD Heart: Irregular regular rhythm. Rate is around 100. 2/6 systolic ejection murmur and today I hear a two component rub I believe, but it is hard to tell because his rate is rather fast and his rhythm is so irregular. Lungs: Decreased breath sounds at the bases Abdomen: soft, nontender, nondistended, positive bowel sounds Extremities: no cyanosis or clubbing; no edema Skin: no rash Objective Data Vital Signs Vital Signs: Vital Signs - 24 hr 04/30/21 08:59 04/30/21 09:06 04/30/21 10:00 Temperature Pulse Rate 96 98 Respiratory Rate Blood Pressure Pulse Oximetry 94 04/30/21 12:00 04/30/21 13:58 04/30/21 14:00 Temperature 37.1 C Pulse Rate 91 89 89 Respiratory Rate 20 18 Blood Pressure 126/71 147/81 H Pulse Oximetry 100 87 L 04/30/21 14:21 04/30/21 15:00 04/30/21 15:40 Temperature Pulse Rate 88 87 76 Respiratory Rate 18 Blood Pressure 129/83 160/67 H 121/60 Pulse Oximetry 94 04/30/21 16:00 04/30/21 16:20 04/30/21 16:40 Temperature 36.4 C L Pulse Rate 133 H 129 H 136 H Respiratory Rate 20 Blood Pressure 103/70 109/70 123/66 Pulse Oximetry 95 04/30/21 16:50 04/30/21 17:10 04/30/21 18:00 Temperature Pulse Rate 130 H 122 H 125 H Respiratory Rate Blood Pressure Pulse Oximetry 92 04/30/21 18:51 04/30/21 18:55 04/30/21 19:16 Temperature 36.7 C 36.7 C Pulse Rate 125 H 88 Respiratory Rate 20 20 Blood Pressure 127/61 161/79 H Pulse Oximetry 93 04/30/21 19:57 04/30/21
[2021-05-01] MEDS: cloNIDine HCL 0.1 MG TABLET PO (09:24)
[2021-05-01] MEDS: DOXAZOSIN MESYLATE 2 MG TABLET PO (09:24)
[2021-05-01] MEDS: METOPROLOL TARTRATE 50 MG TAB 100 MG PO (09:24)
[2021-05-01] MEDS: APIXABAN 2.5 MG TABLET PO (09:25)
[2021-05-01] MEDS: LIDOCAINE 5% PATCH 1 PATCH TRANSDERM (09:25)
[2021-05-01] MEDS: LACTULOSE 20 GM/30 ML UDC PO (09:25)
--- NOTE | 2021-05-01 11:24 | P.PNCA_ITS ---
Progress Note: A&P Assessment and Plan (1) Acute pericarditis: Code(s): I30.9 - Acute pericarditis, unspecified Status: Acute Assessment and Plan: Chest pain secondary to acute pericarditis has resolved. * Appears to have an inflammatory pleural pericarditis. Sed rate is 140 * Pericardial friction rub is present today. * Continue with colchicine 0.6mg q72 hrs. Must not be continued any longer than 2 months to avoid toxicity risks. Will initially plan for 1 month with further recommendation to follow based on clinical status. * Reviewed signs and symptoms of pericardial tamponade. * Outpatient follow up in ~1 month (2) Pericardial effusion: Code(s): I31.3 - Pericardial effusion (noninflammatory) Status: Acute Assessment and Plan: Large pericardial effusion circumferential chronic without tamponade physiology. Also has pleural effusion status post thoracentesis on 04/23/2021. There has been worsening of this left effusion, associated with hypoxia on room air. * May be a uremic pleuro- pericarditis although patient is on hemodialysis. He apparently has missed some dialysis? * The patient has also been on minoxidil for a long time and this is likely a contributing factor. Minoxidil has been discontinued. * Hydralazine can also be associated with a lupus-like reaction and can cause pericardial effusion. A lens cleaner may be able to sort out the etiology better. A viral pericarditis is also possible. * Sed rate very high, 140 and ANDRIA is pending. Rheumatoid factor minimally elevated. D-dimer was somewhat elevated on admission. * Patient hemodynamically stable. Caution to avoid significant hypotension and or significant intravascular volume depletion. * Pt also on Eliquis-- watch for any decompensation that would signify a hemorrhagic pericardial effusion and tamponade. Reviewed signs/sx of this w/ pt/. * Echo in our office in 2 weeks, FU w/ Dr. Allen also 2-3 weeks. (3) Paroxysmal atrial fibrillation: Code(s): I48.0 - Paroxysmal atrial fibrillation Status: Acute Assessment and Plan: New diagnosis paroxysmal atrial fibrillation with rapid ventricular response, had converted to sinus rhythm but back in a fib.. * Back in AFib while on metoprolol 100 mg b.i.d. HR mildly elevated. * Reduce hydralazine to 50 mg q8H and DC doxazocin * Add diltiazem 120 mg daily for HR and BP control * Started on Eliquis 2.5 mg b.i.d. * Close office FU (4) Elevated troponin level not due myocardial infarction: Code(s): R77.8 - Other specified abnormalities of plasma proteins Status: Acute Assessment and Plan: Flat curve not secondary to acute coronary syndrome and/or plaque rupture. * Secondary to atrial fibrillation with RVR, end-stage renal disease on hemodialysis and uncontrolled hypertension. * Possibly related to myopericarditis as well given EKG changes, pericardial effusion. (5) Atypical chest pain: Code(s): R07.89 - Other chest pain Status: Acute Assessment and Plan: Secondary to pericarditis, improved/resolved. (6) Uncontrolled hypertension: Code(s): I10 - Essential (primary) hypertension Status: Acute Assessment and Plan: Continue antihypertensives. Controlled -- a little low. (7) ESRD needing dialysis: Code(s): N18.6 - End stage renal disease; Z99.2 - Dependence on renal dialysis Status: Acute Assessment and Plan: Per nephrology. (8) Pleural effusion: Code(s): J90 - Pleural effusion, not elsewhere classified Sta
--- NOTE | 2021-05-01 11:24 | PM.PNCARD ---
Progress Note: A&P Assessment and Plan (1) Acute pericarditis: Code(s): I30.9 - Acute pericarditis, unspecified Status: Acute Assessment and Plan: Chest pain secondary to acute pericarditis has resolved. Appears to have an inflammatory pleural pericarditis. Sed rate is 140 Pericardial friction rub is present today. Continue with colchicine 0.6mg q72 hrs. Must not be continued any longer than 2 months to avoid toxicity risks. Will initially plan for 1 month with further recommendation to follow based on clinical status. Reviewed signs and symptoms of pericardial tamponade. Outpatient follow up in ~1 month (2) Pericardial effusion: Code(s): I31.3 - Pericardial effusion (noninflammatory) Status: Acute Assessment and Plan: Large pericardial effusion circumferential chronic without tamponade physiology. Also has pleural effusion status post thoracentesis on 04/23/2021. There has been worsening of this left effusion, associated with hypoxia on room air. May be a uremic pleuro- pericarditis although patient is on hemodialysis. He apparently has missed some dialysis? The patient has also been on minoxidil for a long time and this is likely a contributing factor. Minoxidil has been discontinued. Hydralazine can also be associated with a lupus-like reaction and can cause pericardial effusion. A berry picker may be able to sort out the etiology better. A viral pericarditis is also possible. Sed rate very high, 140 and [place] is pending. Rheumatoid factor minimally elevated. D-dimer was somewhat elevated on admission. Patient hemodynamically stable. Caution to avoid significant hypotension and or significant intravascular volume depletion. Pt also on Eliquis-- watch for any decompensation that would signify a hemorrhagic pericardial effusion and tamponade. Reviewed signs/sx of this w/ pt/. Echo in our office in 2 weeks, FU w/ Dr. Allen also 2-3 weeks. (3) Paroxysmal atrial fibrillation: Code(s): I48.0 - Paroxysmal atrial fibrillation Status: Acute Assessment and Plan: New diagnosis paroxysmal atrial fibrillation with rapid ventricular response, had converted to sinus rhythm but back in a fib.. Back in AFib while on metoprolol 100 mg b.i.d. HR mildly elevated. Reduce hydralazine to 50 mg q8H and DC doxazocin Add diltiazem 120 mg daily for HR and BP control Started on Eliquis 2.5 mg b.i.d. Close office FU (4) Elevated troponin level not due myocardial infarction: Code(s): R77.8 - Other specified abnormalities of plasma proteins Status: Acute Assessment and Plan: Flat curve not secondary to acute coronary syndrome and/or plaque rupture. Secondary to atrial fibrillation with RVR, end-stage renal disease on hemodialysis and uncontrolled hypertension. Possibly related to myopericarditis as well given EKG changes, pericardial effusion. (5) Atypical chest pain: Code(s): R07.89 - Other chest pain Status: Acute Assessment and Plan: Secondary to pericarditis, improved/resolved. (6) Uncontrolled hypertension: Code(s): I10 - Essential (primary) hypertension Status: Acute Assessment and Plan: Continue antihypertensives. Controlled -- a little low. (7) ESRD needing dialysis: Code(s): N18.6 - End stage renal disease; Z99.2 - Dependence on renal dialysis Status: Acute Assessment and Plan: Per nephrology. (8) Pleural effusion: Code(s): J90 - Pleural effusion, not elsewhere classified Status: Acute Assessment and Plan: Status post thoracentesis X 2. (9) COPD (chronic obstructive pulmonary disease): Qualifiers: COPD type: unspecified COPD Qualified Code(s): J44.9 - Chronic obstructive pulmonary disease, unspecified Code(s): J44.9 - Chronic obstructive pulmonary disease, unspecified Status: Acute Assessment and Plan: Per
[2021-05-01 13:39] LABS: Albumin Pleural Fluid 2.1 g/dL
--- NOTE | 2021-05-01 13:42 | PCPTNOTE ---
Attempted to see patient for PT, however per nursing patient is discharging home on palliative care.
--- NOTE | 2021-05-01 15:36 | PM.DS ---
DS: Admitting Diagnosis Discharge Date 05/01/2021 Admitting Diagnosis chest pain DS: Discharge Diagnosis Discharge Diagnosis (1) Acute pericarditis: Code(s): I30.9 - Acute pericarditis, unspecified Status: Acute (2) Pericardial effusion: Code(s): I31.3 - Pericardial effusion (noninflammatory) Status: Acute (3) Anemia: Code(s): D64.9 - Anemia, unspecified Status: Acute (4) Atrial fibrillation with RVR: Code(s): I48.91 - Unspecified atrial fibrillation Status: Acute (5) Elevated troponin level not due myocardial infarction: Code(s): R77.8 - Other specified abnormalities of plasma proteins Status: Acute (6) Atypical chest pain: Code(s): R07.89 - Other chest pain Status: Acute (7) Uncontrolled hypertension: Code(s): I10 - Essential (primary) hypertension Status: Acute (8) ESRD (end stage renal disease): Code(s): N18.6 - End stage renal disease Status: Acute (9) Seizures: Code(s): R56.9 - Unspecified convulsions Status: Acute (10) Tobacco abuse: Code(s): Z72.0 - Tobacco use Status: Acute (11) COPD (chronic obstructive pulmonary disease): Qualifiers: COPD type: unspecified COPD Qualified Code(s): J44.9 - Chronic obstructive pulmonary disease, unspecified Code(s): J44.9 - Chronic obstructive pulmonary disease, unspecified Status: Acute (12) Hypertension: Qualifiers: Hypertension type: renovascular hypertension Qualified Code(s): I15.0 - Renovascular hypertension Code(s): I10 - Essential (primary) hypertension Status: Acute Assessment and Plan: Patient is a 50-year-old male with history of end-stage renal disease on hemodialysis presented with complaint of chest pain across his chest last 2 3 days patient denies any injury to chest, the pain is reproducible upon by pressing on the chest, patient tropes are elevated most likely secondary to end-stage renal disease and demand ischemia due to pain unlikely ruptured plaque. there are no acute changes on EKG, patient was started on heparin, also upon arrival patient was in atrial fibrillation with RVR most likely new onset is patient does not have any rate limiting medication, patient was given metoprolol IV 5 mg that converted patient to sinus rhythm, chest x-ray showed cardiomegaly, patient stats he had cardiac ECHO 3 yrs ago at [facility], will do cardiac echo to recheck, he has had thoracentesis in the past, will order thoracentesis therapeutic, patient will be seen by junior technical writer and further recommendation to follow, patient will have dialysis today, will continue to monitor. upon arrival patient had fever and elevated white count concerning for pneumonia started the patient on azithromycin and Rocephin, patient D-dimer is elevated V/Q scan intermediate probability for PE currently patient is on heparin, will do the lower extremity Doppler and further recommendation to follow. 04/24/21 remains on heparin gtt x probable PE and afib pericarditis on colchicine pericardial effusion stable without tamponade HD per nephro BP not at goal meds have been adjusted today by cardiology acute pain lidocaine patch for low back, morphine iv x breakthrough and Percocet PRN added to MAR elevated BP likely multifactorial rebound from clonidine and 2/2 to pain cont current care 04/25/21 BP near goal HD MWF pain improved remains on heparin gtt -> warfarin soon? 04/26/21 Metoprolol 50 t.i.d. Weaned from Cardizem drip when able Currently on heparin drip will transition OAC Continue pain medication Continue colchicine Continue hemodialysis per Nephro 04/27/21 Warfarin ordered dc heparin when fully anticoagulated HD tomorrow per Dr Lanier chest pain improving cont current care 04/28/21 Eliquis ordered instead of warfarin to improve compliance Patient refusing di
--- NOTE | 2021-05-01 16:25 | HOMEO2EVAL ---
Evaluation was performed at [facility] Home Oxygen Evaluation RC: Home Oxygen (O2) Evaluation Start: 05/01/21 12:05 Freq: ONCE Status: Discharge Protocol: RPE Activity Type Activity Date Activity User E-Sign Co-Sign Detail Recorded Client Recorded Date Recorded By Document 05/01/21 15:00 INA [id number] 05/01/21 16:25 INA Document 05/01/21 15:05 INA [id number] 05/01/21 16:25 INA Document 05/01/21 15:15 INA [id number] 05/01/21 16:25 INA 05/01/21 05/01/21 05/01/21 15:00 15:05 15:15 Home O2 Evaluation Test Phase Resting Exercise Resting Oxygen Delivery Room Air Room Air Room Air Pulse Oximetry (90-100 %) 95 92 93 Pulse Rate (60-100 beats/min) 93 140 H 108 H Home Oxygen Evaluation Comments No home o2 needed Treatment Charges O2 Evaluation - Inpatient
== END 2021-05-01 16:16 | disposition home or self-care (01) | DRG 314 ==
LOC: ANHED 04:48 → ANHICU 06:32 → ANHIMU 04-28 16:42
PROVIDERS: Family Medicine; Internal Medicine; Internal Medicine Cardiovascular Disease; Internal Medicine Nephrology; Admitting Provider Internal Medicine; Emergency Provider Emergency Medicine; PCP Internal Medicine; Visit Provider Hospitalist
DX: I30.9 Acute pericarditis, unspecified (principal); N18.6 End stage renal disease; J18.9 Pneumonia, unspecified organism; J90 Pleural effusion, not elsewhere classified; I12.0 Hypertensive chronic kidney disease with stage 5 chronic kidney disease or end stage renal disease; J44.1 Chronic obstructive pulmonary disease with (acute) exacerbation; J44.0 Chronic obstructive pulmonary disease with (acute) lower respiratory infection; I48.0 Paroxysmal atrial fibrillation; Z99.2 Dependence on renal dialysis; R56.9 Unspecified convulsions; Z20.822 Contact with and (suspected) exposure to COVID-19; D63.1 Anemia in chronic kidney disease; Z87.891 Personal history of nicotine dependence; Z79.899 Other long term (current) drug therapy; R07.89 Other chest pain; R74.8 Abnormal levels of other serum enzymes; T46.7X5A Adverse effect of peripheral vasodilators, initial encounter
CPT/HCPCS: 32555; 36415; 71045; 78580; 80053; 80069; 82040; 82042; 82150; 82247; 82465; 82945; 82947; 83605; 83615; 83735; 83880; 83986; 84155; 84157; 84311; 84478; 84484; 85025; 85027; 85380; 85610; 85652; 85730; 86038; 86430; 86704; 86706; 87015; 87040; 87070; 87075; 87102; 87116; 87205; 87206; 87340; 87804; 88104; 88108; 88184; 88305; 89051; 93005; 93306; 94618; 94640; 96365; 96375; 97162; 97165; 99285; A9270; A9540; C9803; G0257; J0456; J0696; J1100; J1170; J1644; J2270; J7030; Q4081; Q5105; U0003; U0005

== ENCOUNTER 2021-06-11 09:40 | Emergency (ER) | payer MEDICARE, SELFPAY ==
[2021-06-11] VITALS (14 sets, daily range): BP systolic 74–96; BP diastolic 49–61; PULSE 69–73; RESP 16–24; TEMP 36.8; O2SAT 92–98
--- NOTE | 2021-06-11 | ECHO_ITS ---
Patient Info Name: Germán Mills Age: 50 years : 1970 Gender: Male Ht: 69 in Wt: 139 lbs BSA: 1.75 m2 HR: 69 bpm BP: 88 / 61 mmHg Heart Rhythm: Sinus Rhythm Technical Quality: Fair Exam Date: 06/11/2021 12:32 PM Exam Location: [facility] Patient Status: Emergency Admit Date: 06/11/2021 Staff Ordering Physician: Domitila Canchola MD Sports Activities Foul Judge: Hemalatha Winn RDCS Attending Provider: Domitila Canchola MD Referring Physician: Jesika SHARIF; Exam Type: CA echo doppler color flow Study Info Indications - pericarditis, hypotension, elevated troponin Complete two-dimensional, color flow and Doppler transthoracic echocardiogram is performed. Summary 1. Complete two-dimensional, color flow and Doppler transthoracic echocardiogram is performed. 2. Left ventricular chamber dimension is normal. 3. There is severe concentric increased left ventricular wall thickness. 4. Left ventricular systolic function is hyperdynamic, estimated at >70%. Left Ventricle Left ventricular chamber dimension is normal. Left ventricular systolic function is hyperdynamic, estimated at >70%. There is severe concentric increased left ventricular wall thickness. The left ventricular diastolic function is grade II diastolic dysfunction. Severe biatrial dilation. Mild aortic sclerosis. Calcified mitral valve annulus. Compared to echocardiogram from last month, sinus rhythm replaces atrial fibrillation. Right Ventricle Right ventricular chamber dimension is normal. Left Atria Left atrial chamber dimension is severely enlarged. Right Atria Right atrial chamber dimension is severely enlarged. Aortic Valve The aortic valve is trileaflet. There is mild aortic valve sclerosis. Pulmonic Valve The pulmonic valve is normal. Mitral Valve The mitral valve has normal leaflets. The mitral valve annulus is moderately calcified. Tricuspid Valve The tricuspid valve leaflets are normal. Pericardium/Pleural The pericardium appears normal. There is moderate pericardial effusion. Aorta The aortic root size at the sinus of Valsalva is normal. Left Ventricular Outflow Tract Name Value Normal LVOT 2D LVOT Diameter 2.0 cm LVOT Doppler LVOT Peak Gradient 7 mmHg LVOT Mean Gradient 3 mmHg LVOT VTI 26 cm LVOT VTI/AV VTI Ratio 1.3 LVOT Stroke Volume 80 ml LVOT CO 5.3 l/min LVOT CI 3.1 l/min/m2 Mitral Valve Name Value Normal MV Doppler MV Decel Barber 401 cm/s2 MV PHT 50 ms MV Area (PHT) 4.4 cm2 4.0-5.0 MV Diastolic Function ---
--- NOTE | ~2021-06-11 | XR_ITS ---
EXAMINATION: XR chest 2V DATE: 06/11/2021 10:08 INDICATION: Hypotension TECHNIQUE: frontal and lateral views of the chest were obtained. COMPARISON: Chest radiograph dated 04/30/2021 FINDINGS: Cardiomegaly. Persistent airspace opacities in the left lower lung zone which includes a small left p leural effusion with blunting at the costophrenic angle and posterior sulcus. No pneumothorax or righ t pleural effusion. Mild thoracic spondylosis. Vascular stenting at the left axilla and proximal uppe r arm. IMPRESSION: 1. Small left pleural effusion with associated left basilar atelectasis and/or pneumonia. 2. Enlarged cardiac silhouette which could be due to cardiomegaly or pericardial effusion, the latter seen on ultrasound dated 04/30/2021. Reviewed, dictated and finalized at location B. IMPRESSION: 1. Small left pleural effusion with associated left basilar atelectasis and/or pneumonia. 2. Enlarged cardiac silhouette which could be due to cardiomegaly or pericardia l effusion, the latter seen on ultrasound dated 04/30/2021.
--- NOTE | 2021-06-11 09:00 | ECG_ITS ---
Measurements Intervals [place] Rate: 74 P: 60 RI: 171 QRS: 21 QRSD: 92 T: 223 QT: 421 QTc: 470 Interpretive Statements SINUS RHYTHM LEFT ATRIAL ENLARGEMENT [-0.15mV P-WAVE IN V1/V2] ST DEVIATION AND MARKED T-WAVE ABNORMALITY, CONSIDER INFEROLATERAL ISCHEMIA COMPARED TO ECG 04/27/2021 01:37:26 INFEROLATERAL T-WAVE INVERSION IS NOTED AND ANTERIOR ST-ELEVATION IS RESOLVED Electronically Signed On 06-15-2021 12:45:30 CDT by Neil Koo M.D.
--- NOTE | 2021-06-11 09:45 | ED.GENADULT ---
HPI - General Adult General Chief complaint: Recheck/Abnormal Lab/Rx Stated complaint: Hypotension from Dialysis Source: patient Mode of arrival: ambulatory Limitations: no limitations History of Present Illness HPI narrative: Patient is a 50-year-old male presenting to the emergency department for evaluation of low blood pressure as noted at his dialysis session. Patient received about half of the dialysis session when he was noted to have low blood pressure. The patient was then transported to this facility after his dialysis was stopped. The time of assessment, patient is hypotensive. He denies any fever, chills, chest pain. He reports mild, chronic cough, denies shortness of breath. He denies lower extremity swelling or pain. He denies nausea, vomiting or abdominal pain. Patient denies lightheadedness or dizziness. Denies presyncope or syncopal type symptoms. Patient states that he was recently hospitalized at [facility] in [place], [place] as he could not get emergent dialysis at this hospital over the weekend. However, when I reviewed the chart I did not see record of this. Patient's states that he was in the ICU with a breathing tube. Patient reports normal oral intake since discharge from the hospital. Related Data Allergies Allergy/AdvReac Type Severity Reaction Status Date / Time Iodinated Contrast Media Allergy Unknown Verified 05/17/21 08:13 Review of Systems Review of Systems: CONSTITUTIONAL: Denies fever, chills, or sweats. ENT: Denies rhinorrhea, congestion, sore throat, or otalgia. CARDIOVASCULAR: Denies chest pain, palpitations, or edema. RESPIRATORY: Denies cough or dyspnea. GASTROINTESTINAL: Denies abdominal pain, nausea, vomiting, or diarrhea. GENITOURINARY: Denies dysuria or hematuria. SKIN: Denies rash or itching. MUSCULOSKELETAL: Denies back pain, joint pain, or myalgia. NEUROLOGIC: Denies headache, numbness, or weakness. [facility] Past Medical History Medical History (Updated 06/11/21 @ 15:05 by Domitila Canchola MD) Acute exacerbation of chronic obstructive pulmonary disease Acute pericarditis Anemia Anemia in ESRD (end-stage renal disease) Atrial fibrillation with RVR Atypical chest pain CAP (community acquired pneumonia) Chronic cough COPD (chronic obstructive pulmonary disease) Difficulty sleeping Elevated troponin I level Elevated troponin level not due myocardial infarction End stage renal disease ESRD (end stage renal disease) ESRD needing dialysis Fever Generalized weakness Headache Hematuria High blood pressure Hypertension Kidney disease Palliative care patient Paroxysmal atrial fibrillation Pericardial effusion Pleural effusion Pleural effusion Pulmonary embolism Seizure Seizures Swollen feet Tobacco abuse counseling Uncontrolled hypertension Family History Family History Mother Hypertension Social History Social History Smoking packs per day: 1 Smoking cigarettes per day: 20.0 Years smoked: 20 Smoking pack-years: 20.00 Smoking status: Current every day smoker Second hand tobacco smoke exposure: No Alcohol intake: never Substance use: never Substance use type: does not use Spiritual care concerns: No Exam Narrative: GENERAL: Awake, alert, conversant, thin, chronically ill-appearing HEAD: Normocephalic, atraumatic. EYES: PERRLA and EOMI. ENT: Nares clear, no rhinorrhea or epistaxis. Mucous membranes moist. NECK: Supple. CHEST: No respiratory distress, breathing even and non labored, faint crackles bilaterally HEART: Regular rate, rate rate controlled, sinus rhythm ABDOMEN:Non distended, non tender EXTREMITIES: Normal range of motion. No edema. Fistula right upper extremity. SKIN: Warm, dry, no rash. NEURO:No focal deficits. Alert and oriented x3 Course Vital Signs Vital signs: Vital Signs Temp
[2021-06-11] MEDS: SODIUM CHLORIDE 0.9% IV 500 ML 999 ML IV CONT (10:17)
--- NOTE | 2021-06-11 10:31 | PC.NURSE ---
PT stated he has a bed sore from his last hospital stay. PT currently has boarded foam on his coccyx.
[2021-06-11 11:07] LABS: Basophils Percent Auto 0.3 % (0.2-1.2); Eosinophils Absolute Auto 0.1 K/mm3 (0-0.3); Eosinophils Percent Auto 1.6 % (0-4.4); Hematocrit 28.7 % (42.0-52.0); Hemoglobin 8.5 g/dL (14.0-18.0); Immature Granulocyte Absolute 0.05 K/mm3 (0.00-0.031); Immature Granulocyte Percent A 0.6 % (0-0.5); Lymphocytes Absolute Auto 1.01 K/mm3 (0.9-3.2); Lymphocytes Percent Auto 11.2 % (18.3-44.2); Mean Corpuscular HGB Conc 29.6 g/dl (32-36); Mean Corpuscular Hemoglobin 28.3 pg (26-34); Mean Corpuscular Volume 95.7 fl (80-100); Mean Platelet Volume 9.6 fl (7.4-10.4); Monocytes Absolute Auto 0.6 K/mm3 (0.1-0.6); Monocytes Percent Auto 6.3 % (2.6-8.5); Neutrophils Absolute Auto 7.2 K/mm3 (1.3-6.7); Nucleated Red Blood Cells Perc 0.2 % (0.0-0.2); Platelet Count Result 327 k/mm3 (150-375); Red Cell Distribution Width 20.2 % (11.5-14.5)
[2021-06-11 11:17] LABS: Lactic Acid Reflex 1.3 mmol/L (0.7-2.1)
[2021-06-11 11:25] LABS: Alanine Aminotransferase 30 U/L (4-50); Albumin Level 3.3 g/dL (3.5-5.1); Alkaline Phosphatase 262 U/L (38-126); Anion Gap 8 mmol/L (8-16); Aspartate Amino Transferase 60 U/L (17-59); Bilirubin,Total 0.5 mg/dL (0.2-1.3); Blood Urea Nitrogen 52 mg/dL (9-20); CRP 2.2 mg/dL (<1.0); Calcium 8.4 mg/dL (8.4-10.2); Carbon Dioxide 33 mmol/L (22-30); Chloride 102 mmol/L (98-107); Estimated CRCL calculation 11 ml/min; Estimated Glomerular Filt Rate 11; Glucose 73 mg/dL (65-110); Potassium 3.8 mmol/L (3.4-5.0); Sodium 143 mmol/L (137-145)
[2021-06-11 11:29] LABS: Anisocytosis 1+ (NORMAL); Hypochromasia 1+ (NORMAL); Platelet Estimate Adequate (Adequate); Target Cells 1+ (NORMAL)
[2021-06-11] MEDS: ALBUMIN HUMAN 25% 25 GM/100 ML 100 ML IVPB (14:40)
== END 2021-06-11 15:25 | disposition left against medical advice (07) ==
PROVIDERS: Emergency Provider Emergency Medicine; PCP Internal Medicine
DX: I31.3 Pericardial effusion (noninflammatory) (principal); D63.1 Anemia in chronic kidney disease; I95.9 Hypotension, unspecified; R94.31 Abnormal electrocardiogram [ECG] [EKG]; R79.89 Other specified abnormal findings of blood chemistry; N18.6 End stage renal disease; Z99.2 Dependence on renal dialysis; I12.0 Hypertensive chronic kidney disease with stage 5 chronic kidney disease or end stage renal disease; I48.0 Paroxysmal atrial fibrillation; J44.9 Chronic obstructive pulmonary disease, unspecified; Z86.711 Personal history of pulmonary embolism; F17.210 Nicotine dependence, cigarettes, uncomplicated; R91.8 Other nonspecific abnormal finding of lung field; Z79.01 Long term (current) use of anticoagulants
CPT/HCPCS: 36415; 71046; 80053; 83605; 84484; 85025; 86140; 87040; 93005; 93306; 96361; 96365; 99284; J7040; P9047

== ENCOUNTER 2023-04-16 11:32 | Emergency (ER) | payer MEDICARE, SELFPAY ==
--- NOTE | ~2023-04-16 | US_ITS ---
EXAMINATION: US venous doppler LE DATE: 04/16/2023 12:26 INDICATION: Right lower limb swelling TECHNIQUE: Grayscale ultrasound images without and with compression and Doppler ultrasound images of the right lower extremity veins were obtained. COMPARISON: None. FINDINGS: The visualized portions of right common femoral vein, profunda (deep) femoral vein, femoral vein, pop liteal vein, peroneal trunk, posterior tibial veins, peroneal veins, gastrocnemius vein and greater s aphenous vein outflow are patent. IMPRESSION: 1. No deep venous thrombosis in the right lower limb. Reviewed, dictated and finalized at location B. ARYNGOLOGY PHYSICIAN
[2023-04-16 11:34] VITALS: BP 98/62; PULSE 77; RESP 16; TEMP 36.3; O2SAT 97
--- NOTE | 2023-04-16 12:36 | ED.EXTPRO ---
HPI - Extremity Problem General Chief complaint: Extremity Problem,Nontraumatic Stated complaint: right ankle swelling Time Seen by Provider: 04/16/23 11:35 History of Present Illness HPI Narrative: patient is a 52-year-old male who presents ER with swelling to the right lower extremity. It is below the knee and around the ankle. No pain or redness. Denies fevers or chills. No recent injury or long distance travel. Denies chest pain or shortness of breath. No history of DVT in the past. Related Data Allergies Allergy/AdvReac Type Severity Reaction Status Date / Time Iodinated Contrast Media Allergy Unknown Verified 12/18/21 09:17 Review of Systems Constitutional: Constitutional: Reports no additional constitutional complaints Cardiovascular: Cardiovascular: Reports no additional cardiovascular complaints Respiratory: Respiratory: Reports no additional respiratory complaints Musculoskeletal: Musculoskeletal: Denies arthralgias Comments: Right leg swelling PMFSH Past Medical History Medical History Acute exacerbation of chronic obstructive pulmonary disease Acute pericarditis Anemia Anemia in ESRD (end-stage renal disease) Atrial fibrillation with RVR Atypical chest pain CAP (community acquired pneumonia) Chronic cough COPD (chronic obstructive pulmonary disease) Difficulty sleeping Elevated troponin I level Elevated troponin level not due myocardial infarction End stage renal disease ESRD (end stage renal disease) ESRD needing dialysis Fever Generalized weakness Headache Hematuria High blood pressure Hypertension Kidney disease Palliative care patient Paroxysmal atrial fibrillation Pericardial effusion Pleural effusion Pleural effusion Pulmonary embolism Seizure Seizures Swollen feet Tobacco abuse counseling Uncontrolled hypertension Family History Family History Mother Hypertension Social History Social History (Updated 12/18/21 @ 09:29 by Maylin Pruett CMA) Smoking packs per day: 1 Smoking cigarettes per day: 20.0 Years smoked: 20 Smoking pack-years: 20.00 Smoking status: Current every day smoker Second hand tobacco smoke exposure: No Alcohol intake: never Substance use: never Substance use type: does not use Lack of Transportation: No Lack of Food: Never True Current Housing: I Have Housing Concerned About Future Housing: No Difficulty Paying Gas/Electric Bills: No Difficulty Paying for Meds: No Currently Unemployed: No Education: High School Diploma/GED Difficulty w/ Childcare or Family Care: No Spiritual care concerns: No Exam Narrative: GENERAL: Well-appearing, well-nourished, and in no acute distress. ENT: Mucous membranes moist. EXTREMITIES: Normal range of motion. +2 edema Right lower extremity when compared the left. no erythema to the leg or ankle. SKIN: Warm, dry, no rash. NEURO: Alert and oriented x3. PSYCH: Normal mood and affect. Course Course Emergency Course: -Course: No issues. -Co-morbidities complicating care: End-stage renal disease. -Social determinants of health: Lives at home. -External Chart Review: None -Hx from independent Sources: patient -Independent interpretation of studies: no DVT on ultrasound. -Interventions: None -Shared decision making / Disposition: discharge home. Recommend elevating leg and using compression stockings. Vital Signs Vital signs: Vital Signs Temperature 97.4 F L 04/16/23 11:34 Pulse Rate 77 04/16/23 11:34 Respiratory Rate 16 04/16/23 11:34 Blood Pressure 98/62 L 04/16/23 11:34 Pulse Oximetry 97 04/16/23 11:34 Oxygen Delivery Room Air 04/16/23 11:34 Temperature 97.4 F L 04/16/23 11:34 Pulse Rate 77 04/16/23 11:34 Respiratory Rate 16 04/16/23 11:34 Blood Pressure 98/62 L 04/16/23 11
[2023-04-16 12:44] VITALS: BP 91/63; PULSE 74; RESP 17; TEMP 36.3; O2SAT 99
== END 2023-04-16 12:45 | disposition home or self-care (01) ==
PROVIDERS: Emergency Provider Emergency Medicine
DX: R60.0 Localized edema (principal); J44.9 Chronic obstructive pulmonary disease, unspecified; I12.0 Hypertensive chronic kidney disease with stage 5 chronic kidney disease or end stage renal disease; N18.6 End stage renal disease; D63.1 Anemia in chronic kidney disease; I48.0 Paroxysmal atrial fibrillation; Z99.2 Dependence on renal dialysis; Z86.711 Personal history of pulmonary embolism; F17.210 Nicotine dependence, cigarettes, uncomplicated; Z79.01 Long term (current) use of anticoagulants
CPT/HCPCS: 93971; 99284

== ENCOUNTER 2023-05-24 17:23 | Emergency (ER) | payer MEDICARE, SELFPAY ==
[2023-05-24] VITALS (8 sets, daily range): BP systolic 92–115; BP diastolic 71–84; PULSE 77–93; RESP 16–19; TEMP 36.3; O2SAT 98–100
--- NOTE | 2023-05-24 18:28 | ED.EXTPRO ---
HPI - Extremity Problem General Chief complaint: Extremity Problem,Nontraumatic Stated complaint: right leg swelling Time Seen by Provider: 05/24/23 17:39 History of Present Illness HPI Narrative: Patient is a 52-year-old male who presents ER with swelling to the right lower extremity. Intermittent for several weeks. It improves when he elevates his leg but gets worse when he stands up. He is concerned it may be related to heart failure. No shortness of breath. He is on dialysis chronically. He has not been missing appointments. He followed up with his PCP. He has not been wearing any compression stockings which had been recommended to him in late March. Related Data Home Medications Medication Instructions Recorded Confirmed midodrine 2.5 mg tablet 2.5 mg PO BID 04/17/23 05/13/23 hydrocodone 7.5 mg-acetaminophen 1 tablet PO BID PRN 05/13/23 05/13/23 300 mg tablet Allergies Allergy/AdvReac Type Severity Reaction Status Date / Time Iodinated Contrast Media Allergy Unknown Verified 05/13/23 13:48 Review of Systems Constitutional: Constitutional: Reports no additional constitutional complaints Cardiovascular: Cardiovascular: Reports no additional cardiovascular complaints Respiratory: Respiratory: Reports no additional respiratory complaints Musculoskeletal: Musculoskeletal: Denies arthralgias and Denies joint swelling Comments: Right leg swelling PMFSH Past Medical History Medical History (Updated 05/24/23 @ 18:31 by Jun Yao MD) Acute exacerbation of chronic obstructive pulmonary disease Acute pericarditis Anemia Anemia in ESRD (end-stage renal disease) Atrial fibrillation with RVR Atypical chest pain CAP (community acquired pneumonia) Chronic cough COPD (chronic obstructive pulmonary disease) Difficulty sleeping Elevated troponin I level Elevated troponin level not due myocardial infarction ESRD (end stage renal disease) ESRD needing dialysis Fever Generalized weakness Headache Hematuria High blood pressure Hypertension Kidney disease Palliative care patient Paroxysmal atrial fibrillation Pericardial effusion Pericarditis Pleural effusion Pleural effusion Pulmonary embolism Seizure Seizures Swollen feet Tobacco abuse counseling Uncontrolled hypertension Family History Family History Mother Hypertension Social History Social History Smoking packs per day: 1 Smoking cigarettes per day: 20.0 Years smoked: 20 Smoking pack-years: 20.00 Smoking status: Current every day smoker Second hand tobacco smoke exposure: No Alcohol intake: never Substance use: never Substance use type: does not use Lack of Transportation: No Lack of Food: Never True Current Housing: I Have Housing Concerned About Future Housing: No Difficulty Paying Gas/Electric Bills: No Difficulty Paying for Meds: No Currently Unemployed: No Education: High School Diploma/GED Difficulty w/ Childcare or Family Care: No Spiritual care concerns: No Exam Narrative: GENERAL: Well-appearing, well-nourished, and in no acute distress. HEAD: Normocephalic, atraumatic. CHEST: Clear to auscultation. No respiratory distress. HEART: Regular rate and rhythm. Normal peripheral pulses. EXTREMITIES: Normal range of motion. 2+ edema Right lower extremity. SKIN: Warm, dry, no rash. NEURO: Alert and oriented x3. PSYCH: Normal mood and affect. Course Course Emergency Course: patient educated on need to wear compression sock on the right side. Needs follow-up with PCP and Cardiology Vital Signs Vital signs: Vital Signs Temperature 97.3 F L 05/24/23 17:25 Pulse Rate 92 05/24/23 17:25 Respiratory Rate 16 05/24/23 17:25 Blood Pressure 115/81 05/24/23 17:25 Pulse Oximetry 98 05/24/23 17:25 Temperature 97.3 F L
== END 2023-05-24 18:54 | disposition home or self-care (01) ==
PROVIDERS: Emergency Provider Emergency Medicine; PCP Nurse Practitioner Family
DX: R60.0 Localized edema (principal); I12.0 Hypertensive chronic kidney disease with stage 5 chronic kidney disease or end stage renal disease; N18.6 End stage renal disease; Z99.2 Dependence on renal dialysis; D63.1 Anemia in chronic kidney disease; I48.0 Paroxysmal atrial fibrillation; I31.9 Disease of pericardium, unspecified; J44.9 Chronic obstructive pulmonary disease, unspecified; F17.210 Nicotine dependence, cigarettes, uncomplicated; Z86.711 Personal history of pulmonary embolism; Z79.01 Long term (current) use of anticoagulants
CPT/HCPCS: 99283